=== PATIENT | male | born 1995 | race Caucasian/White ===

== ENCOUNTER → 2018-06-05 12:03 | Outpatient (CLI) | payer OTHER, SELFPAY ==
[2015-05-23 02:54] VITALS: BMI 25.9
[2018-06-05 13:54] LABS: Absolute Lymphocyte Count 1.88 X10^3/ul (0.83-4.51); Absolute Neutrophil Count 4.6 X10^3/uL (2.0-7.7); Basophil# 0.03 X10^3/uL; Basophil% 0.4 % (0-1); Eosinophil# 0.12 X10^3/uL; Eosinophils% 1.7 % (0-5); Hematocrit 44.7 % (40-54); Hemoglobin 14.6 g/dl (13.0-16.5); Lymphocyte # 1.88 X10^3/ul (4.0); Lymphocyte % 25.9 % (19-41); Mean Corp Hgb Conc 32.7 g/gl (32-36); Mean Corpuscular Hgb 27.8 pg (27.0-32.0); Mean Corpuscular Volume 85.1 fL (80-94); Mean Platelet Vol. 9.9 fl (6.2-12.0); Monocyte# 0.63 X10^3/uL; Monocyte% 8.7 % (0-10); Neutrophil # 4.59 X10^3/uL (2.7-7.7); Neutrophil % 63.3 % (47-70); Platelet Count 255 K/mm3 (150-450); RBC Distribution Width CV 13.9 % (11.6-14.6); RBC Distribution Width SD 43.2 fl (35.1-43.9); Red Blood Count 5.25 M/mm3 (4.6-6.2); White Blood Count 7.3 K/mm3 (4.4-11.0)
[2018-06-05 14:05] LABS: POSITIVE COUNT NO; POSITIVE DIFFERENTIAL NO; POSITIVE MORPHOLOGY NO
[2018-06-05 14:15] LABS: ALB/GLOB Ratio 1.2 RATIO (0.9-2.4); AST(SGOT) 13 U/L (15-37); Alanine Aminotransfer ALT/SGPT 20 U/L (16-61); Alkaline Phosphatase 89 U/L (45-117); Anion Gap 4 (5-15); BUN 18 mg/dL (7-18); BUN/Creat Ratio 18.5 RATIO (10-20); Calcium,Total 8.5 mg/dL (8.5-10.1); Chloride 112 mmol/L (98-107); Creatinine, Serum 0.97 mg/dL (0.70-1.30); EST Glomerular Filtration Rate 102 mL/min (>60); Est Glom Filt Rate - Afr Amer 123 mL/min (>60); Globulin 3.2 g/dL (2.2-4.2); Glucose 76 mg/dL (74-106); Potassium 4.1 mmol/L (3.5-5.1); Protein, Total 7.2 g/dL (6.4-8.2); Sodium Level 138 mmol/L (136-145)
[2018-06-06 14:42] LABS: ANTINUCLEAR ANTIBODIES DIRECT Negative (Negative)
== END ==
PROVIDERS: Family Provider Family Medicine; PCP Family Medicine; Referring Provider Family Medicine; Visit Provider Family Medicine
DX: I73.00 Raynaud's syndrome without gangrene (principal)
CPT/HCPCS: 36415; 80053; 84443; 85025; 86038

== ENCOUNTER 2020-08-23 18:57 | Emergency (ER) | payer OTHER, SELFPAY ==
[2020-08-23 18:57] VITALS: BP 144/83; PULSE 91; RESP 16; TEMP 36.4; O2SAT 99; BMI 26.7
--- NOTE | 2020-08-23 19:14 | CT_ITS ---
STUDY: CT ABDOMEN AND PELVIS WITHOUT CONTRAST REASON FOR EXAM: Male, 25 years old. Right flank pain RADIATION DOSAGE (If Supplied By Facility): CTDIvol = ( 13.41 ) mGy, DLP = ( 656.55 ) mGycm TECHNIQUE: Transaxial images were obtained from the dome of the diaphragm to the symphysis pubis without oral contrast, and without intravenous contrast. Sagittal and coronal images were reconstructed. Individualized dose optimization techniques were used for this CT. COMPARISON: None. FINDINGS: The visualized lung bases are unremarkable. The visualized portions of the heart are within normal limits. Normal liver. Normal gallbladder and extrahepatic biliary system. Normal spleen. Normal pancreas. Normal bilateral adrenal glands. Normal right kidney. There are two 2 mm stones within the proximal right ureter. 13 mm probable cyst in the left kidney. Normal visualized stomach. Normal small intestine. Normal colon. The appendix is visualized and appears normal. Normal abdominal aorta. Normal inferior vena cava. Normal retroperitoneum. Normal urinary bladder. Normal abdominal wall. Vertebral rods are noted in place.. CT/Abdomen/Pelvis without Cont IMPRESSION: Right proximal ureteral calculi. Left renal cyst. Electronically Signed: Victor Hugo Sarmiento DO at 20:36 EDT Tel [phone], Service support ,
--- NOTE | 2020-08-23 19:15 | EDS_ITS ---
HPI History of Present Illness Chief Complaint: Flank Pain Narrative Narrative: 25-year-old male presenting with right flank pain. He states that he noted this earlier in the day and had some hematuria as well. He had mild nausea. Pain is been persistent throughout the day. He denies fever or chills. Patient states he has no significant medical history other than a previous back surgery and seasonal allergies. PFSH PFSH Home Medications desvenlafaxine succinate [Pristiq] 50 mg PO DAILY 01/06/14 [History Last Taken 01/05/14] loratadine [Claritin] 10 mg PO DAILY 01/06/14 [History Last Taken 01/05/14] montelukast 10 mg PO DAILY 01/06/14 [History Last Taken Unknown] topiramate 400 mg PO DAILY 01/06/14 [History Last Taken 01/05/14] hydrocodone-acetaminophen 1 tab PO Q6H PRN PRN 3 Days #12 tablet 08/23/20 [Rx Last Taken Unknown] meloxicam [Mobic] 15 mg PO DAILY 08/23/20 [History Last Taken Unknown] ondansetron HCl [Zofran] 4 mg PO Q8H PRN #14 tab 08/23/20 [Rx Last Taken Unknown] Allergy/AdvReac Type Severity Reaction Status Date / Time amoxicillin trihydrate Allergy Rash Verified 08/23/20 19:12 [From Augmentin] potassium clavulanate Allergy Rash Verified 08/23/20 19:12 [From Augmentin] Surgical History History of back surgery Social History Smoking Status: Never smoker ROS ROS ED Constitutional Constitutional ED: Denies chills, fever(s) or subjective Eyes Eyes: Denies blurry vision or change in vision ENT ENT ED: Denies rhinorrhea or sore throat Cardiovascular Cardiovascular: Denies chest pain, palpitations or racing heartbeat Respiratory/Chest Respiratory/Chest: Denies cough, dyspnea or sputum Gastrointestinal Gastrointestinal: Reports nausea; Denies abdominal pain, constipation, diarrhea or vomiting Genitourinary Genitourinary ED: Reports dysuria and hematuria Musculoskeletal Musculoskeletal: Reports other Details: Right flank pain Neurologic Neurologic: Denies headache(s) or weakness Psychiatric Psychiatric: Denies anxiety or depression Endocrine Endocrinology: Denies polydipsia or polyuria EXAM Physical Exam Const Vital Signs: 08/23/20 18:57 Temperature 97.6 F L Temperature Source Temporal Pulse Rate 91 Respiratory Rate 16 Blood Pressure 144/83 H Blood Pressure Mean 103 Pulse Ox 99 Oxygen Delivery Method Room Air Positive well nourished General Appearance ED: NAD HEENT normocephalic and atraumatic Eyes PERRL and EOMs intact bilaterally Resp normal respiratory effort, no retractions and no use of accessory muscles Cardio regular rate and regular rhythm GI non-distended Palpation: soft Bladder / Kidney Exam: CVA tenderness right Extremity normal to inspection General Extremety ED: Negative for edema General Extremity: Negative for edema Neuro oriented x3 Sensorium / Orientation: alert Psych mental status grossly normal Skin Lesions: no lesions Rashes: no rashes MDM MDM MDM Narrative Medical decision making narrative: Patient presenting with flank pain which started today. He does have hematuria as well. Lab work shows a slight leukocytosis however patient's urinalysis is negative for UTI. Patient given Toradol and Zofran in the ED. Creatinine is 1.39 which is elevated over previous and patient is counseled on this. Patient CT of the abdomen pelvis without IV contrast shows 2 proximal ureteral stones approximately 2 mm which are likely to pass. Patient will be given follow-up with Dr. Espinosa. He is given [place] and Zofran for home. Is given return precautions. Patient stable for discharge at this time. Impression: 1. Two 2 mm right proximal ureteral calculi 2. Hematuria 3. Acute kidney injury Lab Data Labs: Laboratory Results - last 24 hr 08/23/20 08/23/20 08/23/20 19:10 19:10 19:10 WBC 13.5 H RBC 5.03 Hgb 14.3 Hct 43.8 MCV 87.1 MCH 28.4 MCHC 32.6 RDW Std Deviation 43.8 RDW Coeff of Ehsan 13.9 Plt Count 307 MPV 10.4 Immature Gran % (Auto) 0.400 Neut % (Auto) 80.8 H Lymph % (Auto) 11.6 L [place] % (Auto) 6.4 Eos % (Auto) 0.4 Baso % (Auto) 0.4 Absolute Neuts (auto) 10.9 H Absolute Lymphs (auto) 1.57 Nucleated RBC % 0 Sodium 141 Potassium 4.3 Chloride 110 H Carbon Dioxide 23.0 Anion Gap 8 BUN 19 H Creatinine 1.39 H Estim Creat Clear Calc 97.10 Est GFR (MDRD) Af Amer 80 Est GFR (MDRD) Non-Af 66 BUN/Creatinine Ratio 13.7 Glucose 98 Calcium 9.0 Urine Color Yellow Urine Clarity Cloudy Urine pH 7.0 Ur Specific [place] 1.005 Urine Protein 30 H Urine Glucose (UA) Normal Urine Ketones Negative Urine Occult Blood 250 H Urine Nitrite Negative Urine Bilirubin Negative Urine Urobilinogen 1 H Ur Leukocyte Esterase 25 H Urine RBC > 100 SEEN Urine WBC 0 SEEN Ur Squamous Epith Cells 0 SEEN Calcium Oxalate Crystal 1+ Urine Bacteria 0 SEEN Urine Mucus 0 SEEN Radiography Diagnostic Testing: Radiology Impression Abdomen/Pelvis CT 08/23/20 19:14 IMPRESSION: Right proximal ureteral calculi. Left renal cyst. Electronically Signed: Victor Hugo Sarmiento DO at 20:36 EDT Tel [phone], Service support , Discharge Plan Triage Chief Complaint: Flank Pain ED Provider: Jesse Zabala Dx/Rx/DC Orders Instructions: ED Kidney Stone w/ Colic Prescriptions: New hydrocodone-acetaminophen 5-325 mg tablet 1 tab PO Q6H PRN PRN (Reason: Pain) 3 Days Qty: 12 RF: 0 ondansetron HCl [Zofran] 4 mg tablet 4 mg PO Q8H PRN (Reason: nausea and vomiting) Qty: 14 RF: 0 No Action desvenlafaxine succinate [Pristiq] 50 MG tablet 50 mg PO DAILY RF: 0 topiramate 200 MG tablet 400 mg PO DAILY RF: 0 montelukast 10 MG tablet 10 mg PO DAILY RF: 0 loratadine [Claritin] 10 mg tablet 10 mg PO DAILY RF: 0 meloxicam [Mobic] 15 mg Tablet 15 mg PO DAILY RF: 0 Primary Care Provider: Osvaldo Leija Referrals: Osvaldo Leija MD [Primary Care Provider] - Giuliano Espinosa MD [STAFF PHYSICIAN] - Activity Restrictions/Additional Instructions: Your kidney function has slightly worsened from previous lab work. It is possible this could be due to the kidney stone. I recommend you follow-up with urology and your primary care physician. He will need repeat kidney function testing. Your creatinine today is 1.39. GFR is 66. Disposition Disposition: Home, Self Care Discharge Date/Time: 08/23/20 21:08
[2020-08-23 19:46] LABS: Bacteria 0 SEEN /hpf (None Seen); Mucous, Urine 0 SEEN /hpf (<or=2+); Squamous Epithelial Cells - UA 0 SEEN /hpf (0-5); White Blood Cells 0 SEEN /hpf (0-5)
[2020-08-23 19:58] LABS: Color, Urine Yellow (Yellow); Glucose, Dipstick Normal (Normal); Ketone-Dipstick Negative (Negative); Leukocyte Esterase-Dipstick 25 /ul (Negative); Nitrite-Dipstick Negative (Negative); Occult Blood-Urine 250 /ul (Negative); Protein-Dipstick 30 mg/dl (Negative); Specific Gravity, Urine 1.005 (1.002-1.030); Urine Bilirubin Dipstick Negative (Negative); Urine Clarity Cloudy (Clear); Urine Urobilinogen 1 mg/dl (Normal)
[2020-08-23 20:02] LABS: Anion Gap 8 (5-15); BUN 19 mg/dL (7-18); BUN/Creat Ratio 13.7 RATIO (10-20); Chloride 110 mmol/L (98-107); Creatinine, Serum 1.39 mg/dL (0.70-1.30); EST Glomerular Filtration Rate 66 mL/min (>60); Est Glom Filt Rate - Afr Amer 80 mL/min (>60); Glucose 98 mg/dL (74-106); Potassium 4.3 mmol/L (3.5-5.1); Sodium Level 141 mmol/L (136-145)
[2020-08-23] MEDS: Ketorolac 15 MG/ML Vial IV (20:03)
[2020-08-23] MEDS: Ondansetron 4 MG/2 ML Vial IV (20:03)
[2020-08-23 20:08] LABS: Absolute Lymphocyte Count 1.57 X10^3/uL (0.83-4.51); Absolute Neutrophil Count 10.9 X10^3/uL (2.0-7.7); Basophil# 0.06 X10^3/uL; Basophil% 0.4 % (0-1); Eosinophil# 0.05 X10^3/uL; Eosinophils% 0.4 % (0-5); Hematocrit 43.8 % (40-54); Hemoglobin 14.3 g/dL (13.0-16.5); Lymphocyte # 1.57 X10^3/ul (0.83-4.51); Lymphocyte % 11.6 % (19-41); Mean Corp Hgb Conc 32.6 g/dL (32-36); Mean Corpuscular Hgb 28.4 pg (27.0-32.0); Mean Corpuscular Volume 87.1 fL (80-94); Mean Platelet Vol. 10.4 fl (6.2-12.0); Monocyte# 0.86 X10^3/uL; Monocyte% 6.4 % (0-10); NRBC Flagged by Analyzer 0 % (0-5); Neutrophil # 10.94 X10^3/uL (2.7-7.7); Neutrophil % 80.8 % (47-70); Platelet Count 307 K/mm3 (150-450); RBC Distribution Width CV 13.9 % (11.6-14.6); RBC Distribution Width SD 43.8 fl (35.1-43.9); Red Blood Count 5.03 M/mm3 (4.6-6.2); White Blood Count 13.5 K/mm3 (4.4-11.0)
[2020-08-23 20:11] LABS: Red Blood Cells-Urine > 100 SEEN /hpf (0-5)
[2020-08-23 20:12] LABS: Calcium Oxalate Crystals Ur 1+ /hpf (<or=2+)
[2020-08-23] MEDS: oxyCODONE 5 MG Tablet PO (21:08)
== END 2020-08-23 21:08 | disposition home or self-care (01) ==
PROVIDERS: Emergency Provider Student in an Organized Health Care Education/Training Program; PCP Family Medicine
DX: N20.1 Calculus of ureter (principal); N17.9 Acute kidney failure, unspecified; Z79.1 Long term (current) use of non-steroidal anti-inflammatories (NSAID); Z79.899 Other long term (current) drug therapy
CPT/HCPCS: 74176; 80048; 81001; 85025; 96374; 96375; 99282; J7030; A4216; J2405

== ENCOUNTER → 2020-09-22 13:40 | Outpatient (CLI) | payer OTHER, SELFPAY ==
[2020-08-23 18:57] VITALS: BMI 26.7
[2020-09-22 17:00] LABS: Creatinine, Serum 0.85 mg/dL (0.70-1.30); EST Glomerular Filtration Rate 116 mL/min (>60); Est Glom Filt Rate - Afr Amer 140 mL/min (>60)
== END ==
PROVIDERS: PCP Family Medicine; Referring Provider Nurse Practitioner Adult Health; Visit Provider Nurse Practitioner Adult Health
DX: R93.41 Abnormal radiologic findings on diagnostic imaging of renal pelvis, ureter, or bladder (principal)
CPT/HCPCS: 36415; 82565

== ENCOUNTER → 2021-07-07 | Outpatient (CLI) | payer BC, SELFPAY ==
[2021-07-07 12:25] LABS: Absolute Lymphocyte Count 1.87 X10^3/uL (0.83-4.51); Absolute Neutrophil Count 8.2 X10^3/uL (2.0-7.7); Basophil# 0.08 X10^3/uL; Basophil% 0.7 % (0-1); Eosinophil# 0.14 X10^3/uL; Eosinophils% 1.3 % (0-5); Hematocrit 46.9 % (40-54); Hemoglobin 15.4 g/dL (13.0-16.5); Lymphocyte # 1.87 X10^3/ul (0.83-4.51); Mean Corp Hgb Conc 32.8 g/dL (32-36); Mean Corpuscular Hgb 28.7 pg (27.0-32.0); Mean Corpuscular Volume 87.5 fL (80-94); Mean Platelet Vol. 9.7 fl (6.2-12.0); Monocyte# 0.72 X10^3/uL; Monocyte% 6.5 % (0-10); NRBC Flagged by Analyzer 0 % (0-5); Neutrophil # 8.18 X10^3/uL (2.7-7.7); Neutrophil % 74.1 % (47-70); Platelet Count 312 K/mm3 (150-450); RBC Distribution Width CV 13.3 % (11.6-14.6); RBC Distribution Width SD 42.9 fl (35.1-43.9); Red Blood Count 5.36 M/mm3 (4.6-6.2)
[2021-07-07 13:12] LABS: AST(SGOT) 13 U/L (15-37); Alanine Aminotransfer ALT/SGPT 26 U/L (16-61); Albumin, Serum 4.3 g/dL (3.2-5.0); Alkaline Phosphatase 72 U/L (45-117); Bilirubin, Direct 0.11 mg/dL (0.00-0.30); Globulin 3.1 g/dL (2.2-4.2); Protein, Total 7.4 g/dL (6.4-8.2)
== END | disposition home or self-care (01) ==
LOC: MFPLAB 11:27
PROVIDERS: PCP Family Medicine; Referring Provider Family Medicine; Visit Provider Family Medicine
DX: R10.13 Epigastric pain (principal)
CPT/HCPCS: 36415; 80076; 85025

== ENCOUNTER → 2021-09-21 | Outpatient (CLI) | payer BC, SELFPAY ==
[2021-09-21 15:19] LABS: Absolute Lymphocyte Count 1.84 X10^3/uL (0.83-4.51); Absolute Neutrophil Count 6.1 X10^3/uL (2.0-7.7); Basophil# 0.04 X10^3/uL; Basophil% 0.5 % (0-1); Eosinophil# 0.18 X10^3/uL; Hematocrit 46.3 % (40-54); Hemoglobin 15.6 g/dL (13.0-16.5); Lymphocyte # 1.84 X10^3/ul (0.83-4.51); Lymphocyte % 20.8 % (19-41); Mean Corp Hgb Conc 33.7 g/dL (32-36); Mean Corpuscular Hgb 28.7 pg (27.0-32.0); Mean Corpuscular Volume 85.3 fL (80-94); Mean Platelet Vol. 10.2 fl (6.2-12.0); Monocyte# 0.67 X10^3/uL; Monocyte% 7.6 % (0-10); NRBC Flagged by Analyzer 0 % (0-5); Neutrophil # 6.09 X10^3/uL (2.7-7.7); Neutrophil % 68.9 % (47-70); Platelet Count 297 K/mm3 (150-450); RBC Distribution Width CV 13.7 % (11.6-14.6); RBC Distribution Width SD 42.5 fl (35.1-43.9); Red Blood Count 5.43 M/mm3 (4.6-6.2); White Blood Count 8.8 K/mm3 (4.4-11.0)
[2021-09-21 15:42] LABS: ALB/GLOB Ratio 1.2 RATIO (0.9-2.4); AST(SGOT) 12 U/L (15-37); Alanine Aminotransfer ALT/SGPT 22 U/L (16-61); Albumin, Serum 4.1 g/dL (3.2-5.0); Alkaline Phosphatase 71 U/L (45-117); Anion Gap 4 (5-15); BUN 17 mg/dL (7-18); BUN/Creat Ratio 17.6 RATIO (10-20); CRP < 2.90 mg/L (0.0-3.0); Calcium,Total 8.8 mg/dL (8.5-10.1); Chloride 110 mmol/L (98-107); Creatinine, Serum 0.96 mg/dL (0.70-1.30); EST Glomerular Filtration Rate 100 mL/min (>60); Est Glom Filt Rate - Afr Amer 121 mL/min (>60); Globulin 3.5 g/dL (2.2-4.2); Glucose 88 mg/dL (74-106); Potassium 3.7 mmol/L (3.5-5.1); Protein, Total 7.6 g/dL (6.4-8.2); Sodium Level 139 mmol/L (136-145)
[2021-09-23 15:08] LABS: Endomysial Antibody IgA Negative (Negative)
[2021-09-23 16:47] LABS: Deamidated Gliadin IgA 4 units (0-19); Deamidated Gliadin IgG 2 units (0-19); Immunoglobulin A 183 mg/dL (90-386); t-Transglutaminase IgA <2 U/mL (0-3)
[2021-09-27 04:06] LABS: Beef <0.10 kU/L (Class 0); Corn <0.10 kU/L (Class 0); Egg, Whole <0.10 kU/L (Class 0); Milk (Cow) <0.10 kU/L (Class 0); Peanut <0.10 kU/L (Class 0); Pork <0.10 kU/L (Class 0); Soybean <0.10 kU/L (Class 0); Wheat <0.10 kU/L (Class 0)
[2021-09-27 17:03] LABS: Chocolate <0.10 kU/L (Class 0)
== END | disposition home or self-care (01) ==
PROVIDERS: PCP Family Medicine; Referring Provider Family Medicine; Visit Provider Family Medicine
DX: R10.13 Epigastric pain (principal)
CPT/HCPCS: 36415; 80053; 82784; 83516; 85025; 86003; 86005; 86140; 86255

== ENCOUNTER → 2021-09-22 | Outpatient (CLI) | payer BC, SELFPAY ==
[2021-09-28 09:33] LABS: H. PYLORI STOOL AG Negative (Negative)
== END | disposition home or self-care (01) ==
LOC: MFPLAB 13:54 → LABSPEC 13:55
PROVIDERS: PCP Family Medicine; Referring Provider Family Medicine; Visit Provider Family Medicine
DX: R10.13 Epigastric pain (principal); E55.9 Vitamin D deficiency, unspecified
CPT/HCPCS: 87338

== ENCOUNTER → 2021-09-30 | Outpatient (CLI) | payer BC, SELFPAY ==
--- NOTE | 2021-09-30 11:18 | CT_ITS ---
STUDY: CT ABDOMEN AND PELVIS WITH CONTRAST REASON FOR EXAM: Male, 26 years old. ABDOMINAL PAIN- LUQ X 2 MONTHS. DELAY THROUGH SPLEEN RADIATION DOSAGE (If Supplied By Facility): CTDIvol = ( 14.54 ) mGy, DLP = ( 1167.50 ) mGycm TECHNIQUE: Transaxial images were obtained from the dome of the diaphragm to the symphysis pubis with oral contrast. Oral and amp; IV Gastrografin and amp; 100mL Isovue-300 was administered. Sagittal and coronal images were reconstructed. Individualized dose optimization techniques were used for this CT. COMPARISON: Comparison is made with prior study dated 08/23/2020. FINDINGS: The visualized lung bases are unremarkable. The visualized portions of the heart are within normal limits. Normal liver. Normal gallbladder and extrahepatic biliary system. Normal spleen. Normal pancreas. Normal bilateral adrenal glands. Normal right kidney. 2.2 cm cyst in the anterior upper pole of the left kidney. Large amount of residual food particles seen within the stomach. Normal small intestine. Large amount of fecal material is seen in the rectosigmoid colon. The appendix is visualized and appears normal. Normal abdominal aorta. Normal inferior vena cava. Normal retroperitoneum. Normal urinary bladder. Normal abdominal wall. The patient is status post interpedicular screw fixation of the lower thoracic and lumbar vertebra. CT/Abdomen/Pelvis WITH Contrast IMPRESSION: Stable 2.2 cm cyst in the left kidney. Moderate amount of fecal material is seen in the rectosigmoid colon. Electronically Signed: Stephen Olmedo MD at 14:30 EDT ,
== END | disposition home or self-care (01) ==
PROVIDERS: PCP Family Medicine; Referring Provider Family Medicine; Visit Provider Family Medicine
DX: R10.9 Unspecified abdominal pain (principal)
CPT/HCPCS: 74177; Q9967

== ENCOUNTER → 2022-11-08 | Outpatient (CLI) | payer OTHER, SELFPAY ==
[2022-11-08 12:31] LABS: Cholesterol 163 mg/dL (200); High Density Lipoprotein 41 mg/dL; Triglycerides 80 mg/dL; Very Low Density Lipoprotein 16 mg/dL (5-40)
[2022-11-08 12:41] LABS: Hemoglobin A1c 4.8 % (3.8-5.6)
== END | disposition home or self-care (01) ==
LOC: MFPLAB 10:40
PROVIDERS: PCP Family Medicine; Visit Provider Nurse Practitioner Family
DX: Z13.1 Encounter for screening for diabetes mellitus (principal); Z13.220 Encounter for screening for lipoid disorders
CPT/HCPCS: 36415; 80061; 83036

== ENCOUNTER → 2023-07-04 | Outpatient (CLI) | payer OTHER, SELFPAY ==
[2023-07-04 11:58] LABS: Absolute Lymphocyte Count 2.29 X10^3/uL (0.83-4.51); Absolute Neutrophil Count 5.5 X10^3/uL (2.0-7.7); Basophil% 1.1 % (0-1); Eosinophils% 5.4 % (0-5); Hematocrit 47.5 % (40-54); Hemoglobin 15.1 g/dL (13.0-16.5); Lymphocyte # 2.29 X10^3/ul (0.83-4.51); Lymphocyte % 24.9 % (19-41); Mean Corp Hgb Conc 31.8 g/dL (32-36); Mean Corpuscular Hgb 27.2 pg (27.0-32.0); Mean Corpuscular Volume 85.6 fL (80-94); Mean Platelet Vol. 9.1 fl (6.2-12.0); Monocyte# 0.77 X10^3/uL; Monocyte% 8.4 % (0-10); NRBC Flagged by Analyzer 0 % (0-5); Neutrophil # 5.48 X10^3/uL (2.7-7.7); Neutrophil % 59.8 % (47-70); Platelet Count 367 K/mm3 (150-450); RBC Distribution Width CV 12.8 % (11.6-14.6); RBC Distribution Width SD 39.8 fl (35.1-43.9); Red Blood Count 5.55 M/mm3 (4.6-6.2); White Blood Count 9.2 K/mm3 (4.4-11.0)
[2023-07-04 12:20] LABS: AST(SGOT) 17 U/L (15-37); Alanine Aminotransfer ALT/SGPT 26 U/L (16-61); Albumin, Serum 3.8 g/dL (3.2-5.0); Alkaline Phosphatase 90 U/L (45-117); Anion Gap 7 (5-15); BUN 11 mg/dL (7-18); BUN/Creat Ratio 9.3 RATIO (10-20); Calcium,Total 9.2 mg/dL (8.5-10.1); Chloride 107 mmol/L (98-107); Creatinine, Serum 1.18 mg/dL (0.70-1.30); EST Glomerular Filtration Rate 78 mL/min (>60); Est Glom Filt Rate - Afr Amer 94 mL/min (>60); Globulin 3.9 g/dL (2.2-4.2); Glucose 90 mg/dL (74-106); Lipase 23 U/L (13-75); Magnesium 2.2 mg/dL (1.6-2.6); Potassium 4.2 mmol/L (3.5-5.1); Protein, Total 7.7 g/dL (6.4-8.2); Sodium Level 138 mmol/L (136-145)
== END | disposition home or self-care (01) ==
LOC: LAB 11:35
PROVIDERS: PCP Family Medicine; Referring Provider Family Medicine; Visit Provider Family Medicine
DX: R11.10 Vomiting, unspecified (principal); R10.9 Unspecified abdominal pain
CPT/HCPCS: 80053; 82140; 83605; 83690; 83735; 85025

== ENCOUNTER → 2023-07-13 | Outpatient (CLI) | payer OTHER, SELFPAY ==
--- NOTE | 2023-07-13 08:40 | RAD_ITS ---
STUDY: X-RAY - ESOPHAGUS (BARIUM SWALLOW) WITH FLUOROSCOPY REASON FOR EXAM: Male, 28 years old. Dysphagia and vomiting TECHNIQUE: 11 view(s) of the esophagus were obtained following swallowing of barium. FLUOROSCOPY TIME (if supplied): (33 seconds) minutes/seconds. 15.25 mGy. COMPARISON: None. FINDINGS: There is no demonstrated esophageal foreign body. There is no demonstrated stricture or mucosal abnormality. Normal gastroesophageal junction, without a demonstrated hiatal hernia. There is evidence of gastroesophageal reflux. The patient ingested a 12 mm tablet of barium without any difficulty. Normal visualized aortic arch and descending thoracic aorta. Normal visualized pulmonary parenchyma. The patient is status post [place] rods fixation device. RAD/Esophagus Single Contrast IMPRESSION: Gastroesophageal reflux. Electronically Signed: Stephen Olmedo MD at 9:47 EDT ,
== END | disposition home or self-care (01) ==
LOC: RAD 08:38
PROVIDERS: PCP Family Medicine; Referring Provider Family Medicine; Visit Provider Family Medicine
DX: R13.10 Dysphagia, unspecified (principal)
CPT/HCPCS: 74220

== ENCOUNTER → 2023-11-22 | Outpatient (CLI) | payer OTHER, SELFPAY ==
[2023-11-22 15:57] LABS: Anion Gap 6 (5-15); BUN 14 mg/dL (7-18); Chloride 109 mmol/L (98-107); Cholesterol 162 mg/dL (200); Creatinine, Serum 0.93 mg/dL (0.70-1.30); EST Glomerular Filtration Rate 102 mL/min (>60); Est Glom Filt Rate - Afr Amer 124 mL/min (>60); Glucose 89 mg/dL (74-106); High Density Lipoprotein 49 mg/dL; Potassium 3.9 mmol/L (3.5-5.1); Sodium Level 138 mmol/L (136-145); Triglycerides 79 mg/dL; Very Low Density Lipoprotein 16 mg/dL (5-40)
== END | disposition home or self-care (01) ==
LOC: MFPLAB 11:09
PROVIDERS: PCP Family Medicine; Visit Provider Nurse Practitioner Family
DX: Z13.220 Encounter for screening for lipoid disorders (principal); Z13.1 Encounter for screening for diabetes mellitus
CPT/HCPCS: 36415; 80048; 80061

== ENCOUNTER → 2024-04-08 | Outpatient (CLI) | payer OTHER, SELFPAY | END | disposition home or self-care (01) | LOC: LABSPEC 12:33 | PROVIDERS: PCP Family Medicine; Visit Provider Nurse Practitioner Family | DX: R82.90 Unspecified abnormal findings in urine (principal) | CPT/HCPCS: 87086; 87088 ==

== ENCOUNTER → 2024-11-14 | Outpatient (CLI) | payer OTHER, SELFPAY ==
[2024-11-14 12:33] LABS: Hematocrit 44.1 % (40-54); Hemoglobin 14.6 g/dL (13.0-16.5); Immature Granulocytes Count 0.030 X10^3/uL (0.0-0.0); Mean Corp Hgb Conc 33.1 g/dL (32-36); Mean Corpuscular Volume 82.6 fL (80-94); Mean Platelet Vol. 10.1 fl (6.2-12.0); NRBC Flagged by Analyzer 0 % (0-5); Platelet Count 326 K/mm3 (150-450); RBC Distribution Width CV 13.3 % (11.6-14.6); RBC Distribution Width SD 39.8 fl (35.1-43.9); Red Blood Count 5.34 M/mm3 (4.6-6.2); White Blood Count 10.1 K/mm3 (4.4-11.0)
[2024-11-14 12:54] LABS: AST(SGOT) 21 U/L (<=37); Alanine Aminotransfer ALT/SGPT 24 U/L (<=46); Albumin, Serum 4.5 g/dL (3.5-5.0); Alkaline Phosphatase 77 U/L (40-129); Anion Gap 13 (5-15); BUN 12 mg/dL (4-19); BUN/Creat Ratio 14.9 RATIO (10-20); Calcium,Total 9.1 mg/dL (7.6-11.0); Carbon Dioxide 20.3 mmol/L (21.0-32.0); Chloride 104 mmol/L (98-108); Cholesterol 171 mg/dL (<=200); Globulin 3.0 g/dL (2.2-4.2); Glucose 93 mg/dL (70-99); Low Density Lipoprotein Calc. 103 mg/dL; Potassium 4.4 mmol/L (3.3-5.1); Triglycerides 123 mg/dL; Very Low Density Lipoprotein 25 mg/dL (5-40); Vitamin D,25 Hydroxy 22.4 ng/mL (30-100); cholesterol:hdl ratio screen 3.90
== END | disposition home or self-care (01) ==
LOC: MTLAB 09:21
PROVIDERS: PCP Family Medicine; Referring Provider Family Medicine; Visit Provider Family Medicine
DX: K21.9 Gastro-esophageal reflux disease without esophagitis (principal); Z13.220 Encounter for screening for lipoid disorders; E66.811 Obesity, class 1; E55.9 Vitamin D deficiency, unspecified
CPT/HCPCS: 36415; 80053; 80061; 82306; 85025

== ENCOUNTER → 2025-01-14 | Outpatient (CLI) | payer OTHER, SELFPAY ==
[2025-01-14 17:42] LABS: Hematocrit 47.2 % (40-54); Hemoglobin 15.0 g/dL (13.0-16.5); Immature Granulocytes Count 0.170 X10^3/uL (0.0-0.0); Mean Corp Hgb Conc 31.8 g/dL (32-36); Mean Corpuscular Volume 84.4 fL (80-94); Mean Platelet Vol. 10.8 fl (6.2-12.0); NRBC Flagged by Analyzer 0 % (0-5); POSITIVE COUNT YES; RBC Distribution Width CV 13.6 % (11.6-14.6); RBC Distribution Width SD 41.9 fl (35.1-43.9); Red Blood Count 5.59 M/mm3 (4.6-6.2); White Blood Count 11.2 K/mm3 (4.4-11.0)
[2025-01-14 18:02] LABS: Differential Indicated SCAN CRITERIA MET
[2025-01-14 18:17] LABS: AST(SGOT) 30 U/L (<=37); Alanine Aminotransfer ALT/SGPT 63 U/L (<=46); Albumin, Serum 4.5 g/dL (3.5-5.0); Alkaline Phosphatase 90 U/L (40-129); Anion Gap 13 (5-15); BUN 13 mg/dL (4-19); BUN/Creat Ratio 15.7 RATIO (10-20); CRP 9.52 mg/L (0.0-3.0); Calcium,Total 9.7 mg/dL (7.6-11.0); Carbon Dioxide 23.0 mmol/L (21.0-32.0); Chloride 103 mmol/L (98-108); Globulin 3.4 g/dL (2.2-4.2); Glucose 85 mg/dL (70-99); Potassium 4.4 mmol/L (3.3-5.1)
[2025-01-15 08:32] LABS: Lipase 20 U/L (13-75)
[2025-01-16 14:08] LABS: ANTINUCLEAR ANTIBODIES DIRECT Negative (Negative)
== END | disposition home or self-care (01) ==
PROVIDERS: PCP Family Medicine; Referring Provider Family Medicine; Visit Provider Family Medicine
DX: K85.90 Acute pancreatitis without necrosis or infection, unspecified (principal)
CPT/HCPCS: 36415; 80053; 83036; 83690; 84443; 85025; 85652; 86038; 86140; 86301; 86304

== ENCOUNTER → 2025-01-16 | Outpatient (CLI) | payer OTHER, SELFPAY ==
--- NOTE | 2025-01-16 10:47 | MRI_ITS ---
PROCEDURE: MRCP ABDOMEN WITHOUT CONTRAST 01/16/2025 REASON FOR EXAM: ACUTE PANCREATITIS WITHOUT NECROSIS OR INFECTION TECHNIQUE: Procedure Code: MRIMRCP Modality: MR Procedure: MRCP ABDOMEN WITHOUT CONTRAST Multiplanar and multisequence images were obtained without the use of contrast. COMPARISON: CT of the abdomen and pelvis dated 09/30/2021 FINDINGS: Liver: Normal in signal and size. Normal morphology. No mass. Patent portal vein. Biliary: Status post cholecystectomy. Normal appearance of the biliary tree with no filling defect or mass. Pancreas: Unremarkable appearance of the pancreas. No ductal dilatation. Fatty infiltration of the pancreatic head, stable. Spleen: Normal in size and signal Adrenals: Normal Kidneys: 2.6 cm cyst arising from the anterior cortex in the upper pole of the left kidney. No hydronephrosis. Small cysts in the posterior cortex of the right kidney is incompletely characterized. No hydronephrosis or solid mass. Peritoneum / Retroperitoneum: No ascites or mass. Lymph Nodes: No retroperitoneal or mesenteric lymphadenopathy Major Vessels: Normal flow voids and normal caliber of the aorta and inferior vena cava. Bones: No fracture. No destructive process. Multilevel spinal fusion. MRI/MRCP Abdomen without Contrast IMPRESSION: Status post cholecystectomy. Normal appearance of the biliary tree and pancreatic duct. Fatty infiltration of the pancreatic head, stable. Stable renal cysts. Reading Location: [id number]
== END | disposition home or self-care (01) ==
PROVIDERS: PCP Family Medicine; Referring Provider Family Medicine; Visit Provider Family Medicine
DX: K85.90 Acute pancreatitis without necrosis or infection, unspecified (principal)
CPT/HCPCS: 74181

== ENCOUNTER → 2025-01-16 | Outpatient (CLI) | payer OTHER, SELFPAY ==
[2025-01-16 11:57] LABS: AST(SGOT) 15 U/L (<=37); Alanine Aminotransfer ALT/SGPT 40 U/L (<=46); Albumin, Serum 4.4 g/dL (3.5-5.0); Alkaline Phosphatase 87 U/L (40-129); Amylase 33 U/L (28-100); Anion Gap 12 (5-15); BUN 13 mg/dL (4-19); BUN/Creat Ratio 15.7 RATIO (10-20); Calcium,Total 9.4 mg/dL (7.6-11.0); Carbon Dioxide 24.1 mmol/L (21.0-32.0); Chloride 103 mmol/L (98-108); Globulin 2.8 g/dL (2.2-4.2); Glucose 92 mg/dL (70-99); Lipase 51 U/L (13-75); Potassium 4.3 mmol/L (3.3-5.1)
--- OUTSIDE RECORDS SUMMARY | 2025-01-16 13:45 | XMS RPT_ITS | CCD ---
Author Organization [employer] [facility] Care Team Providers Care Sheriff'S Officer Name Role Phone HELADIO ETIENNE, TALISHA Hickey Primary Care Physician LOW ETIENNE, NERI Rivas Attending Unavailable HELADIO ETIENNE, TALISHA Hickey Primary Care Unavailable HELADIO ETIENNE, TALISHA A Primary Care Unavailable ERLINDA ETIENNE, DR TUNDE Nugent Attending Yolanda ARAGON MD, TA Leon Attending Unavailable HELADIO ETIENNE, TALISHA A Primary Care Unavailable JILLIAN KARMER MD Attending Unavailable HELADIO ETIENNE, TALISHA Hickey Primary Care Unavailable BUDDY RINCON Attending Unavailable HELADIO ETIENNE, TALISHA A Primary Care Unavailable HELADIO ETIENNE, TALISHA Hickey Attending Unavailable HELADIO ETIENNE, TALISHA A Primary Care Unavailable EMIR ETIENNE, DONNY Attending Unavailable HELADIO ETIENNE, TALISHA Hickey Primary Care Unavailable CORNELL ETIENNE, BERE Consulting Unavailable ZAIDA ETIENNE, PRAVEEN Consulting Unavailable EMIR ETIENNE, DONNY Attending Unavailable HELADIO ETIENNE, TALISHA Hickey Primary Care Unavailable Talisha Leija Referring Unavailable Talisha Leija Attending Unavailable Talisha Leija Primary Care Unavailable Kira AVILA, Jillian Subramanian Attending Unavailable Talisha Leija Primary Care Unavailable Roof MARGARITA, Jillian Subramanian Attending Unavailable Talisha Leija Referring Unavailable Heladio Talisha Primary Care Unavailable Allergies Allergy Classification Reported Allergen(s) Allergy Type Date of Onset Reaction(s) Facility Amoxicillin / Clavulanate (3 sources) Amoxicillin / Clavulanate; Translations: [amoxicillin-cla vulanate] Drug Allergy [facility] DOPamine Antagonists (2 sources) Metoclopramide; Translations: [metoclopramide] Drug Allergy lose control of jaw [facility] (4 sources) Amoxicillin; Translations: [amoxicillin trihydrate] Drug Allergy [facility] (4 sources) potassium clavulanate; Translations: [potassium clavulanate] Allergy to substance Rash [facility] (4 sources) Amoxicillin / Clavulanate; Translations: [amoxicillin-cla vulanate] Drug Allergy [facility] Medications Current Medications Medication Drug Class(es) Dates Sig (Normalized) Sig (Original) acetaminophen 325 mg / HYDROcodone bitartrate 5 mg oral tablet (4 sources) Opioid Agonist Start: 08-11-2023 End: 08-16-2023 take 1 tablet by mouth every four hours as needed for pain [place] 325- 5 mg oral tablet Dose = 1 tab(s), Oral, q4h, PRN as needed for pain, X 5 day(s), # 12 tab(s), 0 Refill(s), Pharmacy: [facility], Acute post-operative pain, 190.5, cm, 08/11/23 11:13:00 EDT, Height, 112.8, kg, 08/11/23 11:13:00 EDT, Dosing Weight Start Date: 08/11/23 Stop Date: 08/16/23 Status: Ordered Start: 08-23-2020 take 1 tablet by radha th every six hours as needed Hydrocodone-Acetaminophen Active 1 TABLE T PO EVERY 6 HOURS NEEDED 12 August 23, 2020 acetaminophen 325 mg / oxyCODONE hydrochloride 5 mg oral tablet (1 source) Opioid Agonist Start: 05-15-2023 End: 05-18-2023 take 1 tablet by mouth every six hours as needed for pain Percocet 5 mg-325 mg oral tablet Dose = 1 tab(s), Oral, q6h, PRN for pain, X 3 day(s), # 12 tab(s), 0 Refill(s), Kidney stone, 115.2 Start Date: 05/15/23 Stop Date: 05/18/23 Status: Ordered Albuterol (Eqv-ProAir HFA) 90 mcg/inh inhalation aerosol (2 sources) Start: 08-02-2023 take 1 dose by inhalation every six hours as needed for wheezing Albuterol (Eqv-ProAir HFA) 90 mcg/inh inhalation aerosol Dose = 2 puff(s), Inhalation, q6hr, PRN as needed for wheezing, 0 Refill(s) Start Date: 08/02/23 Status: Ordered amitriptyline hydrochloride 25 mg oral tablet (4 sources) Tricyclic Antidepressant Start: 08-02-2023 amitriptyline 25 mg oral tablet Dose : 25 mg = 1 tab(s), Oral, qHS Start Date: 08/02/23 Status: Ordered Start: 03-21-2022 amitriptyline 10 mg oral tablet Dose : 20 mg = 2 tab(s), Oral, qHS Start Date: 03/21/22 Status: Ordered 24 hr desvenlafaxine succinate 25 mg extended release oral tablet (5 sources) Serotonin and Norepinephrine Reuptake Inhibitor Start: 08-02-2023 desvenlafaxine (as succinate) 25 mg oral tablet, extended release Dose : 25 mg = 1 tab(s), Oral, qHS, # 30 tab(s), 0 Refill(s) Start Date: 08/02/23 Status: Ordered Start: 01-06-2014 take 1 tablet by ardha once daily Desvenlafaxine Succinate (Pristiq) 50 MG tablet Active 50 MG PO DAILY January 06, 2014 1:00am ergocalciferol 1.25 mg oral capsule (2 sources) Provitamin D2 Compound Start: 08-02-2023 ergocalciferol 50,000 intl units (1.25 mg) oral capsule Dose : 50,000 International_Unit = 1 cap(s), Oral, qHS, 0 Refill(s) Start Date: 08/02/23 Status: Ordered lactulose 667 mg/ml oral solution (2 sources) Osmotic Laxative Start: 08-02-2023 take 1 dose by mouth once daily at bedtime Constulose 10 g/15 mL oral liquid Dose : 20 gram(s) = 30 mL, Oral, qHS, 0 Refill(s) Start Date: 08/02/23 Status: Ordered loratadine 10 mg oral tablet (3 sources) Start: 01-06-2014 take 1 tablet by mouth once daily Loratadine (Claritin) 10 mg tablet Active 10 MG PO DAILY January 06, 2014 1:00am meloxicam 15 mg oral tablet (3 sources) Nonsteroidal Anti-inflammatory Drug Start: 08-23-2020 take 1 tablet by mouth once daily Meloxicam (Mobic) 15 mg Tablet Active 15 MG PO DAILY August 23, 2020 12:00am metoclopramide 10 mg oral tablet (2 sources) Dopamine-2 Receptor Antagonist Start: 07-07-2023 End: 07-12-2023 Reglan 10 mg oral tablet Dose : 10 mg = 1 tab(s), Oral, QID, X 5 day(s), # 20 tab(s), 0 Refill(s), 07/12/23 6:40:00 PM EDT Start Date: 07/07/23 Stop Date: 07/12/23 Status: Ordered montelukast 10 mg oral tablet (5 sources) Leukotriene Receptor Antagonist Start: 08-02-2023 montelukast 10 mg oral tablet Dose : 10 mg = 1 tab(s), Oral, qHS, # 30 tab(s), 0 Refill(s) Start Date: 08/02/23 Status: Ordered Start: 01-06-2014 take 10 mg by mouth once daily Montelukast Active 10 MG PO DAILY January 06, 2014 1:00am mupirocin 0.02 mg/mg topical ointment (2 sources) RNA Synthetase Inhibitor Antibacterial Start: 08-02-2023 mupirocin 2% topical ointment Apply 1 carlita, Topical, BID, Bilateral intranasal application twice daily for 5 days prior to surgery &/or as many days leading up to surgery as possible due to surgical urgency/scheduling. Send to patient's preferred pharmacy., Apply to: nostril, each, # 22 gram(s), 0 Refill(s), Pharmacy: [facility] #[id number], Ointment, 182.9, cm, 08/02/23 9:21:00 EDT, Height, 114.8, kg, 08/02/23 9:21:00 EDT, Dosing Weight Start Date: 08/02/23 Status: Ordered ondansetron 4 mg disintegrating oral tablet (4 sources) Serotonin-3 Receptor Antagonist Start: 05-15-2023 End: 05-18-2023 ondansetron 4 mg oral tablet, disintegrating Dose : 4 mg = 1 tab(s), Oral, q6h, PRN Nausea/Vomiting, X 3 day(s), # 20 tab(s), 0 Refill(s), 05/18/23 10:36:00 PM EDT Start Date: 05/15/23 Stop Date: 05/18/23 Status: Ordered Start: 08-23-2020 take 1 tablet by radha th every eight hours Ondansetron Hcl (Zofran) 4 mg tablet Active 4 MG PO Q8H August 23, 2020 12:00am pantoprazole 40 mg delayed release oral tablet (4 sources) Proton Pump Inhibitor Start: 03-21-2022 pantopra zole 40 mg oral enteric coated tablet Dose : 80 mg = 2 tab(s), Oral, qHS Start Date: 03/21/22 Status: Ordered promethazine hydrochloride 12.5 mg oral tablet (2 sources) Phenothiazine Start: 08-02-2023 promethazine 1 2.5 mg oral tablet Dose : 12.5 mg = 1 tab(s), Oral, q4h, PRN as needed for nausea/vomiting, # 60 tab(s), 0 Refill(s) Start Date: 08/02/23 Status: Ordered topiramate 50 mg oral tablet (5 sources) Start: 08-02-2023 topiramate 50 mg oral tablet Dose : 50 mg = 1 tab(s), Oral, qHS, 0 Refill(s) Start Date: 08/02/23 Status: Ordered Start: 01-06-2014 take 400 mg by mouth once jr y Topiramate Active 400 MG PO DAILY January 06, 2014 1:00am Completed/Discontinued Medications Medication Drug Class(es) Dates Sig (Normalized) Sig (Original) diazePAM 5 mg oral tablet (3 sources) Benzodiazepine Start: 05-23-2015 End: 08-23-2020 take 5 mg by mouth once daily Diazepam Discontinued 5 MG PO DAILY May 23, 2015 12:00am August 23, 2020 7:13pm docusate sodium 100 mg oral capsule (3 sources) Start: 05-23-2015 End: 08-23-2020 take 1 capsule by mouth once daily Docusate Sodium (Colace) 100 MG capsule Discontinued 100 MG PO DAILY May 23, 2015 12:00am August 23, 2020 7:13pm ferrous sulfate 325 mg oral tablet (3 sources) Start: 05-23-2015 End: 08-23-2020 take 1 tablet by mouth once daily Ferrous Sulfate (Iron Supplement) 325 MG tablet Discontinued 325 MG PO DAILY May 23, 2015 12:00am August 23, 2020 7:13pm oxyCODONE hydrochloride 5 mg oral tablet (3 sources) Opioid Agonist Start: 05-23-2015 End: 08-23-2020 take 5 mg by mouth every four hours as needed Oxycodone Discontinued 5 MG PO EVERY 4 HOURS NEEDED May 23, 2015 12:00am August 23, 2020 7:13pm tamsulosin hydrochloride 0.4 mg oral capsule (5 sources) alpha-Adrenergic Froylan Start: 05-15-2023 End: 05-18-2023 Flomax 0.4 mg oral capsule Dose : 0.4 mg = 1 cap(s), Oral, qDay, # 3 cap(s), 0 Refill(s) Start Date: 05/15/23 Stop Date: 05/18/23 Status: Ordered Start: 12-25-2021 End: 01-01-2022 Flomax 0.4 mg oral capsule D ose : 0.4 mg = 1 cap(s), Oral, qDay, # 7 cap(s), 0 Refill(s), Kidney stone Start Date: 12/25/21 Stop Date: 01/01/22 Status: Ordered zolpidem tartrate 10 mg oral tablet (2 sources) gamma-Aminobutyric Acid-ergic Agonist Start: 08-02-2023 zolpidem 10 mg oral tablet Dose : 10 mg = 1 tab(s), Oral, qHS, 0 Refill(s), 113.6 Start Date: 08/02/23 Status: Ordered Problems Active Problems Problem Classification Problem Date Documented Date Episodic/Chronic Abdominal pain (3 sources) Abdominal pain; Translations: [Unspecified abdominal pain] Onset: 05-15-2023 Episodic Calculus of urinary tract (4 sources) Renal colic; Translations: [Unspecified renal colic] Onset: 05-15-2023 08-23-2020 Episodic Esophageal disorders (3 sources) Gastroesophageal reflux disease; Translations: [Gastro-esophageal reflux disease without esophagitis] Onset: 12-06-2024 07-25-2023 Chronic Other nervous system disorders (1 source) Postoperative pain ; Translations: [Other acute postprocedural pain] Onset: 08-11-2023 Episodic Past or Other Problems Problem Classification Problem Date Documented Da te Episodic/Chronic Genitourinary symptoms and ill-defined conditions (3 sources) Unspecified abnormal findings in urine; Translations: [Dysuria] Onset: 04-07-2024 Episodic Results Test Name Value Interpretation Reference Range Facility CBC W/Diff, Automatedon 10-0 Absolute Lymph 1.76 X10 3/uL Normal 0.83-4.51 [facility] Comment on above: Order Comment: Order Date: 05/21/24 Order Info: [id number] - CBCD Performed By: #### L 500.4100, L500.4050, L100.0100 #### [facility] [address] [place], [address] Absolute Neut 7.4 X10 3/uL Normal 2.0-7.7 [facility] Comment on above: Order Comment: Order Date: 05/21/24 Order Info: [id number] - CBCD Performed By: #### L 500.4100, L500.4050, L100.0100 #### [facility] [address] [place], [address] Basophils/100 WBC (Bld) 0.8 % Normal 0-1 [facility] Comment on above: Order Comment: Order Date: 05/21/24 Order Info: [id number]- - CBCD Performed By: #### L 500.4100, L500.4050, L100.0100 #### [facility] [address] [place], [address] Eosinophils/100 WBC (Bld) 1.2 % Normal 0-5 [facility] Comment on above: Order Comment: Order Date: 05/21/24 Order Info: [id number] - CBCD Performed By: #### L 500.4100, L500.4050, L100.0100 #### [facility] [address] [place], [address] Erythrocyte distribution width (RBC) [Ratio] 13.3 % Normal 11.6-14.6 [facility] Comment on above: Order Comment: Order Date: 05/21/24 Order Info: [id number] - CBCD Performed By: #### L 500.4100, L500.4050, L100.0100 #### [facility] [address] [place], [address] Hematocrit (Bld) [Volume fraction] 44.1 % Normal 40-54 [facility] Comment on above: Order Comment: Order Date: 05/21/24 Order Info: [id number] - CBCD Performed By: #### L 500.4100, L500.4050, L100.0100 #### [facility] [address] [place], [address] Hemoglobin (Bld) [Mass/Vol] 14.6 g/dL Normal 13.0-16.5 [facility] Comment on above: Order Comment: Order Date: 05/21/24 Order Info: [id number]- - CBCD Performed By: #### L 500.4100, L500.4050, L100.0100 #### [facility] [address] [place], [address] IG% 0.300 Normal 0.0-0.9 [facility] Comment on above: Order Comment: Order Date: 05/21/24 Order Info: [id number] - CBCD Result Comment: IG% - Immature Granulocytes (promyelocytes, myelocytes and metamyelocytes) > 1% indicates that a LEFT SHIFT is Present. Performed By: #### L 500.4100, L500.4050, L100.0100 #### [facility] [address] [place], [address] Lymphocytes/100 WBC (Bld) 17.4 % Low 19-41 [facility] Comment on above: Order Comment: Order Date: 05/21/24 Order Info: [id number] - CBCD Performed By: #### L 500.4100, L500.4050, L100.0100 #### [facility] [address] [place], [address] MCH (RBC) [Entitic mass] 27.3 pg Normal 27.0-32.0 [facility] Comment on above: Order Comment: Order Date: 05/21/24 Order Info: [id number] - CBCD Performed By: #### L 500.4100, L500.4050, L100.0100 #### [facility] [address] [place], [address] MCHC (RBC) [Mass/Vol] 33.1 g/dL Normal 32-36 [facility] Comment on above: Order Comment: Order Date: 05/21/24 Order Info: [id number]- - CBCD Performed By: #### L 500.4100, L500.4050, L100.0100 #### [facility] [address] [place], [address] MCV (RBC) [Entitic vol] 82.6 fL Normal 80-94 [facility] Comment on above: Order Comment: Order Date: 05/21/24 Order Info: [id number]- - CBCD Performed By: #### L 500.4100, L500.4050, L100.0100 #### [facility] [address] [place], [address] Monocytes/100 WBC (Bld) 7.1 % Normal 0-10 [facility] Comment on above: Order Comment: Order Date: 05/21/24 Order Info: [id number] - CBCD Performed By: #### L 500.4100, L500.4050, L100.0100 #### [facility] [address] [place], [address] Neutrophils/100 WBC (Bld) 73.2 % High 47-70 [facility] Comment on above: Order Comment: Order Date: 05/21/24 Order Info: [id number] - CBCD Performed By: #### L 500.4100, L500.4050, L100.0100 #### [facility] [address] [place], [address] Nucleated RBC (Bld) [#/Vol] 0 10*3/uL Normal 0-5 [facility] Comment on above: Order Comment: Order Date: 05/21/24 Order Info: [id number] - CBCD Performed By: #### L 500.4100, L500.4050, L100.0100 #### [facility] [address] [place], [address] Platelet mean volume (Bld) [Entitic vol] 10.1 fL Normal 6.2-12.0 [facility] Comment on above: Order Comment: Order Date: 05/21/24 Order Info: [id number] - CBCD Performed By: #### L 500.4100, L500.4050, L100.0100 #### [facility] [address] [place], [address] Platelets (Bld) [#/Vol] 326 10*3/uL Normal 150-450 [facility] Comment on above: Order Comment: Order Date: 05/21/24 Order Info: [id number] - CBCD Performed By: #### L 500.4100, L500.4050, L100.0100 #### [facility] [address] [place], [address] RBC (Bld) [#/Vol] 5.34 10*6/uL Normal 4.6-6.2 [facility] Comment on above: Order Comment: Order Date: 05/21/24 Order Info: [id number] - CBCD Performed By: #### L 500.4100, L500.4050, L100.0100 #### [facility] [address] [place], [address] RDW SD 39.8 fl Normal 35.1-43.9 [facility] Comment on above: Order Comment: Order Date: 05/21/24 Order Info: [id number] - CBCD Performed By: #### L 500.4100, L500.4050, L100.0100 #### [facility] [address] [place], [address] WBC (Bld) [#/Vol] 10.1 10*3/uL Normal 4.4-11.0 [facility] Comment on above: Order Comment: Order Date: 05/21/24 Order Info: [id number] - CBCD Performed By: #### L 500.4100, L500.4050, L100.0100 #### [facility] [address] [place], [address] Comprehensive Metabolic Prof ilon 11-14-2024 Albumin [Mass/Vol] 4.5 g/dL Normal 3.5-5.0 [facility] Comment on above: Order Comment: Order Date: 05/21/24 Order Info: [id number] - CMP Order Info: [id number] - LIPID Performed By: #### L 500.4100, L500.4050, L100.0100 #### [facility] [address] [place], [address] Albumin/Globulin [Mass ratio] 1.5 {ratio} Normal 0.9-2.4 [facility] Comment on above: Order Comment: Order Date: 05/21/24 Order Info: [id number] - CMP Order Info: [id number] - LIPID Performed By: #### L 500.4100, L500.4050, L100.0100 #### [facility] [address] [place], [address] ALK PHOS 77 U/L Normal 40-129 [facility] Comment on above: Order Comment: Order Date: 05/21/24 Order Info: [id number] - CMP Order Info: [id number] - LIPID Performed By: #### L 500.4100, L500.4050, L100.0100 #### [facility] [address] [place], [address] ALT [Catalytic activity/Vol] 24 U/L Normal <=46 [facility] Comment on above: Order Comment: Order Date: 05/21/24 Order Info: [id number] - CMP Order Info: [id number] - LIPID Performed By: #### L 500.4100, L500.4050, L100.0100 #### [facility] [address] [place], [address] AST [Catalytic activity/Vol] 21 U/L Normal <=37 [facility] Comment on above: Order Comment: Order Date: 05/21/24 Order Info: [id number] - CMP Order Info: [id number] - LIPID Performed By: #### L 500.4100, L500.4050, L100.0100 #### [facility] [address] [place], [address] Bilirubin [Mass/Vol] 0.35 mg/dL Normal 0.00-1.30 [facility] Comment on above: Order Comment: Order Date: 05/21/24 Order Info: [id number] - CMP Order Info: [id number] - LIPID Performed By: #### L 500.4100, L500.4050, L100.0100 #### [facility] [address] [place], [address] BUN/CRE 14.9 RATIO Normal 10-20 [facility] Comment on above: Order Comment: Order Date: 05/21/24 Order Info: [id number] - CMP Order Info: [id number] - LIPID Performed By: #### L 500.4100, L500.4050, L100.0100 #### [facility] [address] [place], [address] Calcium [Mass/Vol] 9.1 mg/dL Normal 7.6-11.0 [facility] Comment on above: Order Comment: Order Date: 05/21/24 Order Info: [id number] - CMP Order Info: [id number] - LIPID Performed By: #### L 500.4100, L500.4050, L100.0100 #### [facility] [address] [place], [address] Chloride [Moles/Vol] 104 mmol/L Normal 98-108 [facility] Comment on above: Order Comment: Order Date: 05/21/24 Order Info: [id number] - CMP Order Info: [id number] - LIPID Performed By: #### L 500.4100, L500.4050, L100.0100 #### [facility] [address] [place], [address] CO2 [Moles/Vol] 20.3 mmol/L Low 21.0-32.0 [facility] Comment on above: Order Comment: Order Date: 05/21/24 Order Info: [id number]- - CMP Order Info: [id number] - LIPID Performed By: #### L 500.4100, L500.4050, L100.0100 #### [facility] [address] [place], [address] Creatinine [Mass/Vol] 0.83 mg/dL Normal 0.70-1.20 [facility] Comment on above: Order Comment: Order Date: 05/21/24 Order Info: [id number] - CMP Order Info: [id number] - LIPID Performed By: #### L 500.4100, L500.4050, L100.0100 #### [facility] [address] [place], [address] GAP 13 Normal 5-15 [facility] Comment on above: Order Comment: Order Date: 05/21/24 Order Info: [id number] - CMP Order Info: [id number] - LIPID Performed By: #### L 500.4100, L500.4050, L100.0100 #### [facility] [address] [place], [address] GFR/1.73 sq M.predicted among non-blacks MDRD (S/P/Bld) [Vol rate/Area] 122 mL/min/{1.73_m2} Normal >60 [facility] Comment on above: Order Comment: Order Date: 05/21/24 Order Info: [id number] - CMP Order Info: [id number] - LIPID Result Comment: mL/m in/1.73m2 CKD-EPI Creatinine Equation (2020) Performed By: #### L 500.4100, L500.4050, L100.0100 #### [facility] [address] [place], [address] Globulin (S) [Mass/Vol] 3.0 g/dL Normal 2.2-4.2 [facility] Comment on above: Order Comment: Order Date: 05/21/24 Order Info: [id number]- - CMP Order Info: [id number] - LIPID Performed By: #### L 500.4100, L500.4050, L100.0100 #### [facility] [address] [place], [address] Glucose [Mass/Vol] 93 mg/dL Normal 70-99 [facility] Comment on above: Order Comment: Order Date: 05/21/24 Order Info: [id number] - CMP Order Info: [id number] - LIPID Performed By: #### L 500.4100, L500.4050, L100.0100 #### [facility] [address] [place], [address] Potassium [Moles/Vol] 4.4 mmol/L Normal 3.3-5.1 [facility] Comment on above: Order Comment: Order Date: 05/21/24 Order Info: [id number] - CMP Order Info: [id number] - LIPID Performed By: #### L 500.4100, L500.4050, L100.0100 #### [facility] [address] [place], [address] Sodium [Moles/Vol] 138 mmol/L Normal 133-145 [facility] Comment on above: Order Comment: Order Date: 05/21/24 Order Info: [id number] - CMP Order Info: [id number] - LIPID Performed By: #### L 500.4100, L500.4050, L100.0100 #### [facility] [address] [place], [address] T PROT 7.4 g/dL Normal 5.9-8.4 [facility] Comment on above: Order Comment: Order Date: 05/21/24 Order Info: [id number] - CMP Order Info: [id number] - LIPID Performed By: #### L 500.4100, L500.4050, L100.0100 #### [facility] [address] [place], [address] Urea nitrogen [Mass/Vol] 12 mg/dL Normal 4-19 [facility] Comment on above: Order Comment: Order Date: 05/21/24 Order Info: [id number]- - CMP Order Info: [id number] - LIPID Performed By: #### L 500.4100, L500.4050, L100.0100 #### [facility] [address] [place], [address] Lipid Profileon 11-14-2024 CHOL:HDL 3.90 Normal [facility] Comment on above: Order Comment: Order Date: 05/21/24 Order Info: [id number] - CMP Order Info: [id number] - LIPID Performed By: #### L 500.4100, L500.4050, L100.0100 #### [facility] [address] [place], [address] Cholesterol [Mass/Vol] 171 mg/dL Normal <=200 [facility] Comment on above: Order Comment: Order Date: 05/21/24 Order Info: [id number] - CMP Order Info: [id number] - LIPID Result Comment: Chol esterol level, Desirable <200 mg/dL Borderline high cholesterol 200-239 mg/dL High cholesterol >=240 mg/dL Recommendations of the NCEP Adult Treatment Panel for the following risk-cutoff thresholds for the [place] population. Performed By: #### L 500.4100, L500.4050, L100.0100 #### [facility] [address] [place], [address] Cholesterol in HDL [Mass/Vol] 44 mg/dL Normal [facility] Comment on above: Order Comment: Order Date: 05/21/24 Order Info: [id number] - CMP Order Info: [id number] - LIPID Result Comment: [place] onal Cholesterol Education Program (NCEP) guidelines: <40 mg/dL: Low HDL-cholesterol (major risk factor for CHD) >= 60 mg/dL: High HDL-cholesterol (negative risk factor for CHD) HDL-cholesterol is affected by a number of factors, e.g. smoking, exercise, hormones, sex and age. Performed By: #### L 500.4100, L500.4050, L100.0100 #### [facility] [address] [place], [address] Cholesterol in LDL [Mass/Vol] 103 mg/dL Normal [facility] Comment on above: Order Comment: Order Date: 05/21/24 Order Info: [id number] - CMP Order Info: [id number] - LIPID Result Comment: Bord emzmjo=722-642 mg/dL Higher Iung=289 mg/dL or greater Friedwald Equation for LDL-C Performed By: #### L 500.4100, L500.4050, L100.0100 #### [facility] [address] [place], [address] Cholesterol in VLDL [Mass/Vol] 25 mg/dL Normal 5-40 [facility] Comment on above: Order Comment: Order Date: 05/21/24 Order Info: [id number] - CMP Order Info: [id number] - LIPID Performed By: #### L 500.4100, L500.4050, L100.0100 #### [facility] [address] [place], [address] Triglyceride [Mass/Vol] 123 mg/dL Normal [facility] Comment on above: Order Comment: Order Date: 05/21/24 Order Info: [id number] - CMP Order Info: [id number] - LIPID Result Comment: The drugs N-Acetylcysteine and Metamizole may falsely depress this assay. Normal range: <150 mg/dL Borderline High: 150-199 mg/dL High: 200-499 mg/dL Very High: >500 mg/dL Performed By: #### L 500.4100, L500.4050, L100.0100 #### [facility] [address] [place], [place], [address] Vitamin D,25 Hydroxyon 11-14 Vitamin D 25-OH 22.4 ng/mL Low 30-100 [facility] Comment on above: Order Comment: Order Date: 05/21/24 Order Info: [id number] - CMP Order Info: [id number] - LIPID Result Comment: Chelsy min D Status Deficiency: <20 ng/mL (50nmol/L) Insufficiency: 20-30 ng/mL (50-75 nmol/L) Sufficiency: 30-100 ng/mL (75-250 nmol/L) Toxicity: >100 ng/mL (>250 nmol/L) Performed By: #### L 506.1001 #### [facility] [address] [place], [place], [address] Urine Cultureon 04-10-2024 URC Below infection leve l. Mixed Gram Positive Organisms [place] Count <1000 MIXC Mixed contaminants. Submit a new specimen if indicated. Normal [facility] Comment on above: Performed By: #### M 100.2200 #### [facility] [address] [place], [place], [address] Urgent Care Visit Reporton 0 04-07-2024 Urgent Care Visit Report [facility] [address], [address] [place], [place] [address] OFFICE VISIT Date of Service: 04/07/24 MR#: [id number] Acct: [id number] Name: GUY MYERS Rep #: [id number] : 1995 Provider: WOO barbour Age/Sex: 28/M [place] [facility] Status: Signed Intake Vital Signs 08/23/20 18:57 04/07/24 08:02 04/07/24 08:23 Height 6 ft 3 in 6 ft 3 in 6 ft 3 in Weight: 273 lb 2 oz BMI 34.1 BP 130/62 H Blood Pressure Location Rt brachial Position Sitting Respiration 16 Pulse 93 Pulse Source NIBP Temp 98.1 F Temp Source Oral Pulse Oximetry (%) 99 Oxygen Delivery Method room air Intake Visit Reasons: CONCERN FOR UTI Chief Complaint: decreased output 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 increase in Topamax approx 1 month ago, PCP unsure if related to dosage change. significant hx renal calculi. denies fever, blood PFSH Medical History (Updated 04/07/24 @ 09:13 by Jillian Malone CONDITIONING COACH, CONDITIONING COACH-C) Environmental allergies Back pain Renal calculus Surgical History (Updated 04/07/24 @ 08:37 by Lucy Whittington) History of spinal fusion History of cholecystectomy History of back surgery Social History Smoking Status: Never smoker HPI HPI Chief Complaint: decreased output Details: GUY MYERS, is a 28 M who presents to the office today for concerns regarding decreased urinary output and right kidney irritation . This is been ongoing for the last week and he feels to be worsening. He states that he started Topamax 1 month ago with primary care provider. He does acknowledge a significant history of renal calculi. He denies fever or blood in urine. He denies fever, backaches, and chills. He noted darker urine yesterday, but cleared up. ROS Const Constitutional: No body ache, chills, fatigue, fever(s), headache(s) or change in appetite Eyes Eyes: No blurry vision, change in vision, double vision, irritation, discharge, vision loss, dry eyes, bulging eyes, floaters, visual disturbances, eye pain, Light sensitivity, spots in vision, tunnel vision or other ENT ENT: No ear or mastoid pain, ear discharge, ear pressure, tinnitus, dizziness/vertigo, nosebleed/epistaxis, nasal congestion, nose pain, sinus pressure, sinus pain, nasal discharge, post nasal drip, headache(s), facial pain, dental pain, difficulty swallowing, bad breath, hoarseness, lip swelling, mouth lesions, mouth pain, neck pain, sore throat, tongue swelling or throat swelling Resp Respiratory: No cough, change in phlegm color, chest congestion, hemoptysis, pain on inspiration, shortness of breath, pain with cough, stridor or wheezing Cardio Cardiology: No chest pain at rest, chest pain with exertion, shortness of breath, dyspnea on exertion or lightheadedness Gastro GI: No abdominal pain, change in bowel habits or difficulty swallowing Genitourinary Male: No burning urination or urinary frequency Musc Musculoskeletal: No joint pain or neck pain Skin Skin: No rash Neuro Neurology: No headache(s) or visual disturbances Psych Psychiatric: No change in appetite Endo Endocrine: No fatigue Aller/Imm Allergy/Immunologic: No lip swelling, throat swelling, tongue swelling or wheezing Exam Const General: cooperative, healthy appearing, comfortable and no acute distress Orientation: alert, awake and oriented x3 HENMT Head: normal to inspection and normocephalic Ears: hearing grossly normal bilaterally, external ears normal and TM's normal bilaterally Nose: external nose normal, nares normal and no nasal discharge Face and sinus: normal facial exam and sinuses nontender Mouth: oral mucosae normal, lip normal, tongue normal, oropharynx normal and moist mucous membranes Throat: posterior oropharynx normal, tonsils normal, uvula midline and no postnasal drainage Eyes General: appearance normal, both eyes and all related structures Neck Neck: normal visual inspection and no lymphadenopathy Carotids: normal carotid upstroke Lymphatic: no lymphadenopathy noted Chest Chest palpation inspection: normal inspection of the chest Resp Effort Inspection: normal respiratory effort, able to speak in complete sentences, symmetric chest movement, no cough and no stridor Auscultation: Bilateral: Clear to Auscultation Cardio Rate: regular rate Rhythm: regular rhythm Heart Sounds: S1 normal, S2 normal and no murmurs GI Inspection: normal to inspection Auscultat (more content not included)... Normal [facility] Final Surgical Pathology Rep [facility] 08-15-2023 Final Surgical Pathology Report . Pathology Reports Accession: Collected Date/Time: Received Date/Time: Pathologist: [id number] 08/11/2023 13:57 EDT 08/14/2023 07:33 EDT MD CHRISTOPHER VEGA Final Surgical Pathology Report DIAGNOSIS: GALLBLADDER, CHOLECYSTECTOMY: - MILD CHRONIC CHOLECYSTITIS CLINICAL INFORMATION: Procedure: ROBOTIC ASSISTED CHOLECYSTECTOMY Preoperative diagnosis: BILIARY DYSKINESIA Postoperative diagnosis: BILIARY DYSKINESIA SPECIMEN: A GALLBLADDER GROSS DESCRIPTION: All parts labelled with patient name and [id number] Received in formalin labelled gallbladder Dimensions - 6.0 x 2.1 x 1.2 cm Cystic duct/pericystic duct lymph node - no lymph node identified Serosal surface - is previously opened. Smooth and espinal-green with a roughened hepatic bed Luminal contents - contains yellow-green bile. No stones identified Mucosal surface - is velvety green with 1 possible polypoid area measuring 0.1 cm. Custodian Supervisor sections submitted Wall thickness - 0.1 cm RS-1 Merly Wilkes, Grossing Motor Vehicle Emissions Inspector/ Dr. Cole Zambrano, Pathologist Performed by Merly Wilkes MICROSCOPIC DESCRIPTION: The microscopic examination is performed, except in the case of Gross Only. Electronically Signed by Pathology Report verified by [facility] CHRISTOPHER VEGA MD Sign out Date: 08/15/2023 08:12 Performing Lab: [facility], [address] [place] [address] [facility] Pathology Dept Disclaimer If ancillary studies were utilized, the following Laboratory Developed Test (LDT) disclaimer will apply: Under CLIA requirements, [facility] is qualified to perform high complexity testing. For all ancillary stains, positive and negative controls stain appropriately. Performance characteristics of immunohistochemical and chromogenic in-situ hybridization tests have been determined by [facility]. These tests are used for clinical purposes, They should not be regarded as investigational or for research. Normal [facility] ([place]) .Auto Diffon 08-02-2023 Basophil, Absolute 0.0 10 3/mcL Normal 0.0-0.3 [facility] ([place]) Comment on above: Performed By: #### C BC, ANEU, CMP, GFR, ADIFF #### [address] [address] Basophils/100 WBC (Bld) 0.5 % Normal 0.0-2.5 [facility] ([place]) Comment on above: Performed By: #### C BC, ANEU, CMP, GFR, ADIFF #### [address] [address] Eosinophil, Absolute 0.2 10 3/mcL Normal 0.0-0.7 [facility] ([place]) Comment on above: Performed By: #### C BC, ANEU, CMP, GFR, ADIFF #### [address] [address] Eosinophils/100 WBC (Bld) 2.7 % Normal 0.0-6.0 [facility] ([place]) Comment on above: Performed By: #### C BC, ANEU, CMP, GFR, ADIFF #### [address] [address] Lymphocyte, Absolute 2.0 10 3/mcL Normal 0.9-4.3 [facility] ([place]) Comment on above: Performed By: #### C BC, ANEU, CMP, GFR, ADIFF #### [address] [address] Lymphocytes/100 WBC (Bld) 24.3 % Normal 20.0-40.0 [facility] ([place]) Comment on above: Performed By: #### C BC, ANEU, CMP, GFR, ADIFF #### [address] [address] Monocyte, Absolute 0.8 10 3/mcL Normal 0.1-1.4 [facility] ([place]) Comment on above: Performed By: #### C BC, ANEU, CMP, GFR, ADIFF #### [address] [address] Monocytes/100 WBC (Bld) 9.8 % Normal 2.0-13.0 [facility] ([place]) Comment on above: Performed By: #### C BC, ANEU, CMP, GFR, ADIFF #### [address] [address] Neutrophils/100 WBC (Bld) 62.7 % Normal 50.0-75.0 [facility] ([place] Comment on above: Performed By: #### C BC, ANEU, CMP, GFR, ADIFF #### [address] [address] .GFRon 08-02-2023 GFR Non- >60 Normal [facility] ([place]) Comment on above: Result Comment: GFR Population mean for , Non- Americans Ages 20-29 = 116 mL/min/1.73 sq.m. Ages 30-39 = 107 mL/min/1.73 sq.m. Ages 40-49 = 99 mL/min/1.73 sq.m. Ages 50-59 = 93 mL/min/1.73 sq.m. Ages 60-69 = 85 mL/min/1.73 sq.m. Ages 70+ = 75 mL/min/1.73 sq.m. Chronic Kidney Disease: Less than 60 mL/min/1.73 square meters End Stage Renal Disease: Less than 15 mL/min/1.73 square meters Performed By: #### C BC, ANEU, CMP, GFR, ADIFF #### [address] [address] GFR >60 Normal [facility] ([place]) Comment on above: Result Comment: GFR Population mean for , Non- Americans Ages 20-29 = 116 mL/min/1.73 sq.m. Ages 30-39 = 107 mL/min/1.73 sq.m. Ages 40-49 = 99 mL/min/1.73 sq.m. Ages 50-59 = 93 mL/min/1.73 sq.m. Ages 60-69 = 85 mL/min/1.73 sq.m. Ages 70+ = 75 mL/min/1.73 sq.m. Chronic Kidney Disease: Less than 60 mL/min/1.73 square meters End Stage Renal Disease: Less than 15 mL/min/1.73 square meters Performed By: #### C BC, ANEU, CMP, GFR, ADIFF #### [address] [address] .NEUABSon 08-02-2023 Neutrophil, Absolute 5.2 10 3/mcL Normal 2.3-8.1 [facility] ([place]) Comment on above: Performed By: #### C BC, ANEU, CMP, GFR, ADIFF #### [place] [id number] CBCon 08-02-2023 Erythrocyte distribution width (RBC) [Ratio] 13.2 % Normal 11.5-15.5 [facility] ([place] Comment on above: Performed By: #### C BC, ANEU, CMP, GFR, ADIFF #### [place] [address] Hematocrit (Bld) [Volume fraction] 43.2 % Normal 40.0-52.0 [facility] ([place] Comment on above: Performed By: #### C BC, ANEU, CMP, GFR, ADIFF #### [place] [address] Hgb 14.9 G/dL Normal 13.0-17.5 [facility] ([place] Comment on above: Performed By: #### C BC, ANEU, CMP, GFR, ADIFF #### [place] [address] MCH (RBC) [Entitic mass] 28.8 pg Normal 27.0-33.0 [facility] ([place] Comment on above: Performed By: #### C BC, ANEU, CMP, GFR, ADIFF #### [place] [address] MCHC 34.4 G/dL Normal 32.0-36.0 [facility] ([place] Comment on above: Performed By: #### C BC, ANEU, CMP, GFR, ADIFF #### [place] [address] MCV (RBC) [Entitic vol] 83.7 fL Normal 81.0-100.0 [facility] ([place] Comment on above: Performed By: #### C BC, ANEU, CMP, GFR, ADIFF #### [place] [address] Platelet 235 10 3/mcL Normal 150-450 [facility] ([place] Comment on above: Performed By: #### C BC, ANEU, CMP, GFR, ADIFF #### [place] [address] Platelet mean volume (Bld) [Entitic vol] 7.9 fL Normal 6.4-10.5 [facility] ([place] Comment on above: Performed By: #### C BC, ANEU, CMP, GFR, ADIFF #### [place] [address] RBC 5.16 10 6/mcL Normal 4.50-6.00 [facility] ([place] Comment on above: Performed By: #### C BC, ANEU, CMP, GFR, ADIFF #### [place] [id number] WBC 8.2 10 3/mcL Normal 4.5-10.8 [facility] ([place] Comment on above: Performed By: #### C BC, ANEU, CMP, GFR, ADIFF #### [place] [address] CMPon 08-02-2023 Albumin Level 3.9 G/dL Normal 3.2-4.8 [facility] ([place] Comment on above: Performed By: #### C BC, ANEU, CMP, GFR, ADIFF #### [place] [address] Albumin/Globulin [Mass ratio] 1.3 {ratio} Normal 0.9-1.6 [facility] ([place] Comment on above: Performed By: #### C BC, ANEU, CMP, GFR, ADIFF #### [place] [address] ALP [Catalytic activity/Vol] 72 U/L Normal 38-126 [facility] ([place] Comment on above: Performed By: #### C BC, ANEU, CMP, GFR, ADIFF #### [place] [id number] ALT [Catalytic activity/Vol] 15 U/L Normal 12-55 [facility] ([place] Comment on above: Performed By: #### C BC, ANEU, CMP, GFR, ADIFF #### [facility] [address] [place], [place] [address] AST [Catalytic activity/Vol] 14 U/L Normal 8-34 [facility] ([place] Comment on above: Performed By: #### C BC, ANEU, CMP, GFR, ADIFF #### [address] [address] Bili Total 0.40 mg/dL Normal 0.20-1.20 [facility] ([place] Comment on above: Result Comment: Use of this assay is not recommended for patients undergoing treatment with eltrombopag due to the potential for falsely elevated results. Performed By: #### C BC, ANEU, CMP, GFR, ADIFF #### [place] [id number] BUN/Creatinine Ratio 16.0 ratio Normal 10.0-22.0 [facility] ([place] Comment on above: Performed By: #### C BC, ANEU, CMP, GFR, ADIFF #### [place] [id number] Calcium [Mass/Vol] 9.2 mg/dL Normal 8.7-10.4 [facility] ([place] Comment on above: Performed By: #### C BC, ANEU, CMP, GFR, ADIFF #### [place] [id number] Chloride [Moles/Vol] 113 mmol/L High 98-110 [facility] ([place] Comment on above: Performed By: #### C BC, ANEU, CMP, GFR, ADIFF #### [place] [id number] CO2 [Moles/Vol] 22 mmol/L Normal 22-32 [facility] ([place] Comment on above: Performed By: #### C BC, ANEU, CMP, GFR, ADIFF #### [place] [id number] Creatinine [Mass/Vol] 0.94 mg/dL Normal 0.60-1.40 [facility] ([place] Comment on above: Performed By: #### C BC, ANEU, CMP, GFR, ADIFF #### [place] [id number] Electrolyte Balance 7.0 mEq/L Normal 4.0-15.0 [facility] ([place]) Comment on above: Performed By: #### C BC, ANEU, CMP, GFR, ADIFF #### [address] [address] Globulin 2.9 G/dL Normal 1.5-3.8 [facility] ([place] Comment on above: Performed By: #### C BC, ANEU, CMP, GFR, ADIFF #### [address] [address] Glucose [Mass/Vol] 90 mg/dL Normal 70-110 [facility] ([place] Comment on above: Performed By: #### C BC, ANEU, CMP, GFR, ADIFF #### [address] [address] Potassium [Moles/Vol] 4.1 mmol/L Normal 3.5-5.0 [facility] ([place] Comment on above: Performed By: #### C BC, ANEU, CMP, GFR, ADIFF #### [place] [phone] Sodium [Moles/Vol] 142 mmol/L Normal 136-145 [facility] ([place] Comment on above: Performed By: #### C BC, ANEU, CMP, GFR, ADIFF #### [address] [address] Total Protein 6.8 G/dL Normal 5.7-8.2 [facility] ([place] Comment on above: Result Comment: No te - New Reference Range in effect 19 Performed By: #### C BC, ANEU, CMP, GFR, ADIFF #### [address] [address] Urea nitrogen [Mass/Vol] 15.0 mg/dL Normal 8.0-22.0 [facility] ([place] Comment on above: Performed By: #### C BC, ANEU, CMP, GFR, ADIFF #### [address] [address] LABORATORYOrdered By: SYSTEM SYSTEM on 08-02-2023 Albumin BCP dye [Mass/Vol] 3.9 G/dL Normal 3.2 - 4.8 G/dL ADM SS Albumin/Globulin [Mass ratio] 1.3 {ratio} Normal 0.9 - 1.6 ratio ADM SS ALP [Catalytic activity/Vol] 72 U/L Normal 38 - 126 U/L ADM SS ALT No additional P-5'-P [Catalytic activity/Vol] 15 U/L Normal 12 - 55 U/L ADM SS AST [Catalytic activity/Vol] 14 U/L Normal 8 - 34 U/L ADM SS Basophils (Bld) [#/Vol] 0.0 103/mcL Normal 0.0 - 0.3 10^3/mcL Workflow SS Basophils/100 WBC (Bld) 0.5 % Normal 0.0 - 2.5 % Workflow SS Bilirubin [Mass/Vol] 0.40 mg/dL Normal 0.20 - 1.20 mg/dL ADM SS Comment on above: Interpretive Data: U se of this assay is not recommended for patients undergoing treatment with eltrombopag due to the potential for falsely elevated results. Calcium [Mass/Vol] 9.2 mg/dL Normal 8.7 - 10. 4 mg/dL ADM SS Chloride [Moles/Vol] 113 mmol/L High 98 - 11 0 mEq/L ADM SS CO2 [Moles/Vol] 22 mmol/L Normal 22 - 32 mEq/L ADM SS Creatinine [Mass/Vol] 0.94 mg/dL Normal 0.60 - 1.40 mg/dL ADM SS Electrolyte Balance 7.0 mEq/L Normal 4.0 - 15 .0 mEq/L ADM SS Eosinophils (Bld) [#/Vol] 0.2 103/mcL Normal 0.0 - 0.7 10^3/mcL Workflow SS Eosinophils/100 WBC (Bld) 2.7 % Normal 0.0 - 6.0 % Workflow SS Erythrocyte distribution width (RBC) [Ratio] 13.2 % Normal 11.5 - 15.5 % Workflow SS GFR/1.73 sq M.predicted among blacks MDRD (S/P/Bld) [Vol rate/Area] ml/min/1.73sqm Invalid Interpretation Code Chemistry S Comment on above: Interpretive Data: GFR Population mean for , Non- Americans Ages 20-29 = 116 mL/min/1.73 sq.m. Ages 30-39 = 107 mL/min/1.73 sq.m. Ages 40-49 = 99 mL/min/1.73 sq.m. Ages 50-59 = 93 mL/min/1.73 sq.m. Ages 60-69 = 85 mL/min/1.73 sq.m. Ages 70+ = 75 mL/min/1.73 sq.m. Chronic Kidney Disease: Less than 60 mL/min/1.73 square meters End Stage Renal Disease: Less than 15 mL/min/1.73 square meters GFR/1.73 sq M.predicted among non-blacks MDRD (S/P/Bld) [Vol rate/Area] ml/min/1.73sqm Invalid Interpretation Code Chemistry S Comment on above: Interpretive Data: GFR Population mean for , Non- Americans Ages 20-29 = 116 mL/min/1.73 sq.m. Ages 30-39 = 107 mL/min/1.73 sq.m. Ages 40-49 = 99 mL/min/1.73 sq.m. Ages 50-59 = 93 mL/min/1.73 sq.m. Ages 60-69 = 85 mL/min/1.73 sq.m. Ages 70+ = 75 mL/min/1.73 sq.m. Chronic Kidney Disease: Less than 60 mL/min/1.73 square meters End Stage Renal Disease: Less than 15 mL/min/1.73 square meters Globulin 2.9 G/dL Normal 1.5 - 3.8 G/dL ADM SS Glucose [Mass/Vol] 90 mg/dL Normal 70 - 110 mg/dL ADM SS Hematocrit (Bld) [Volume fraction] 43.2 % Normal 40.0 - 52.0 % Workflow SS Hemoglobin (Bld) [Mass/Vol] 14.9 G/dL Normal 13.0 - 17.5 G/dL AH Workflow SS Lymphocytes (Bld) [#/Vol] 2.0 103/mcL Normal 0.9 - 4.3 10^3/mcL AH Workflow SS Lymphocytes/100 WBC (Bld) 24.3 % Normal 20.0 - 40.0 % AH Workflow SS MCH (RBC) [Entitic mass] 28.8 pg Normal 27.0 - 33.0 pg AH Workflow SS MCHC 34.4 G/dL Normal 32.0 - 36.0 G/dL AH Workflow SS MCV (RBC) [Entitic vol] 83.7 fL Normal 81.0 - 100.0 fL AH Workflow SS Monocytes (Bld) [#/Vol] 0.8 103/mcL Normal 0.1 - 1.4 10^3/mcL AH Workflow SS Monocytes/100 WBC (Bld) 9.8 % Normal 2.0 - 13.0 % AH Workflow SS Neutrophils (Bld) [#/Vol] 5.2 103/mcL Normal 2.3 - 8.1 10^3/mcL AH Workflow SS Neutrophils/100 WBC (Bld) 62.7 % Normal 50.0 - 75.0 % AH Workflow SS Platelet mean volume (Bld) [Entitic vol] 7.9 fL Normal 6.4 - 10.5 fL AH Workflow SS Platelets (Bld) [#/Vol] 235 103/mcL Normal 150 - 450 10^3/mcL AH Workflow SS Potassium [Moles/Vol] 4.1 mmol/L Normal 3.5 - 5.0 mEq/L ADM SS Protein [Mass/Vol] 6.8 G/dL Normal 5.7 - 8.2 G/dL ADM SS Comment on above: Interpretive Data: * *Note - New Reference Range in effect 19 RBC (Bld) [#/Vol] 5.16 106/mcL Normal 4.50 - 6.0 0 10^6/mcL AH Workflow SS Sodium [Moles/Vol] 142 mmol/L Normal 136 - 145 mEq/L ADM SS Urea nitrogen [Mass/Vol] 15.0 mg/dL Normal 8.0 - 22.0 mg/dL ADM SS Urea nitrogen/Creatinine [Mass ratio] 16.0 ratio Normal 10.0 - 22.0 ratio AH ADM SS WBC (Bld) [#/Vol] 8.2 103/mcL Normal 4.5 - 10.8 10^3/mcL AH Workflow SS NM HEPATOBILIARY DUCT SYSTEM IMAGINGon 07-24-2023 NM HEPATOBILIARY DUCT SYSTEM IMAGING ORIGINAL EXAMINATION: NUCLEAR MEDICINE HEPATOBILIARY SCINTIGRAPHY (HIDA SCAN) WITH EJECTION FRACTION. TECHNIQUE: Approximately 5.0 millicuries Tc99m Mebrofenin (Choletec) was administered IV. Then, dynamic images of the abdomen were obtained in the anterior projection for 60 mins. A right lateral view was also obtained at 60 mins. Slow infusion of 0.02 mcg/kg cholecystokinin was administered intravenously over 30-60 mins. Images were obtained in the ZIMBABWEAN projection and regions of interest were drawn around the gallbladder and ejection fraction was calculated. COMPARISON: Ultrasound the abdomen 09/26/2022. HISTORY: ORDERING SYSTEM PROVIDED HISTORY: Reason for Exam: ABDOMINAL TENDERNESS, VOMITING FINDINGS: Prompt, homogenous uptake by the liver is noted with normal appearance of radiotracer excretion into the biliary system. Clearance of bloodpool activity appears appropriate. Gallbladder and small bowel is visualized in appropriate sequence and time. Gallbladder ejection fraction measured 17%%. Normal value is >38% for CCK protocol and >33% for Ensure protocol. Note, Ensure normal range is based on a limited study. IMPRESSION: 1. No evidence of common bile duct or cystic duct obstruction. 2. Abnormal gallbladder ejection fraction consistent with biliary dyskinesia. Interpreted by: Buddy Mathews Preliminary Report By: Buddy Mathews Electronically signed By Buddy Mathews Dictated Date: 07/24/2023 9:05:51 AM Prelim Date: 07/24/2023 9:07:21 AM Sign Date: 07/24/2023 9:07:21 AM Ordering Provider: TALISHA English [facility] ([place]) .Auto Diffon 07-07-2023 Basophil, Absolute 0.1 10 3/mcL Normal 0.0-0.2 [facility] ([place]) Comment on above: Performed By: #### A LIZ, LIP, CBC, MDW, ADIFF, CMP, GFR #### [address] [address] Basophils/100 WBC (Bld) 0.8 % Normal 0.0-2.5 [facility] ([place]) Comment on above: Performed By: #### A LIZ, LIP, CBC, MDW, ADIFF, CMP, GFR #### [address] [address] Eosinophil, Absolute 0.3 10 3/mcL Normal 0.0-0.4 [facility] ([place]) Comment on above: Performed By: #### A LIZ, LIP, CBC, MDW, ADIFF, CMP, GFR #### [address] [address] Eosinophils/100 WBC (Bld) 3.6 % Normal 0.0-7.0 [facility] ([place] Comment on above: Performed By: #### A LIZ, LIP, CBC, MDW, ADIFF, CMP, GFR #### [address] [address] Lymphocyte, Absolute 1.9 10 3/mcL Normal 0.8-3.9 [facility] ([place]) Comment on above: Performed By: #### A LIZ, LIP, CBC, MDW, ADIFF, CMP, GFR #### [address] [address] Lymphocytes/100 WBC (Bld) 20.2 % Normal 10.0-50.0 [facility] ([place] Comment on above: Performed By: #### A LIZ, LIP, CBC, MDW, ADIFF, CMP, GFR #### [address] [address] Monocyte, Absolute 0.7 10 3/mcL Normal 0.2-1.0 [facility] ([place] Comment on above: Performed By: #### A LIZ, LIP, CBC, MDW, ADIFF, CMP, GFR #### [address] [address] Monocytes/100 WBC (Bld) 7.5 % Normal 1.7-13.0 [facility] ([place] Comment on above: Performed By: #### A LIZ, LIP, CBC, MDW, ADIFF, CMP, GFR #### [address] [address] Neutrophils/100 WBC (Bld) 67.9 % Normal 37.0-80.0 [facility] [place] Comment on above: Performed By: #### A LIZ, LIP, CBC, MDW, ADIFF, CMP, GFR #### [address] [address] .GFRon 07-07-2023 GFR 88 ml/min/1.73sqm Normal [facility] ([place]) Comment on above: Result Comment: GFR Population mean for , Non- Americans Ages 20-29 = 116 mL/min/1.73 sq.m. Ages 30-39 = 107 mL/min/1.73 sq.m. Ages 40-49 = 99 mL/min/1.73 sq.m. Ages 50-59 = 93 mL/min/1.73 sq.m. Ages 60-69 = 85 mL/min/1.73 sq.m. Ages 70+ = 75 mL/min/1.73 sq.m. Chronic Kidney Disease: Less than 60 mL/min/1.73 square meters End Stage Renal Disease: Less than 15 mL/min/1.73 square meters Performed By: #### A LIZ, LIP, CBC, MDW, ADIFF, CMP, GFR #### [address] [address] GFR Non- 73 ml/min/1.73sqm Normal [facility] ([place]) Comment on above: Result Comment: GFR Population mean for , Non- Americans Ages 20-29 = 116 mL/min/1.73 sq.m. Ages 30-39 = 107 mL/min/1.73 sq.m. Ages 40-49 = 99 mL/min/1.73 sq.m. Ages 50-59 = 93 mL/min/1.73 sq.m. Ages 60-69 = 85 mL/min/1.73 sq.m. Ages 70+ = 75 mL/min/1.73 sq.m. Chronic Kidney Disease: Less than 60 mL/min/1.73 square meters End Stage Renal Disease: Less than 15 mL/min/1.73 square meters Performed By: #### A LIZ, LIP, CBC, MDW, ADIFF, CMP, GFR #### [address] [address] .MDWon 07-07-2023 Monocyte Distribution Width 16.74 Normal 0.00-20.00 [facility] ([place]) Comment on above: Result Comment: For ED adult patients suspected of sepsis, MDW<=20.0 does not rule out sepsis or risk of sepsis Performed By: #### A LIZ, LIP, CBC, MDW, ADIFF, CMP, GFR #### [address] [address] .NEUABSon 07-07-2023 Neutrophil, Absolute 6.5 10 3/mcL High 2.9-6.2 [facility] ([place]) Comment on above: Performed By: #### A LIZ, LIP, CBC, MDW, ADIFF, CMP, GFR #### [place] [id number] CBCon 07-07-2023 Erythrocyte distribution width (RBC) [Ratio] 12.8 % Normal 11.5-14.5 [facility] ([place] Comment on above: Performed By: #### A LIZ, LIP, CBC, MDW, ADIFF, CMP, GFR #### [place] [address] Hematocrit (Bld) [Volume fraction] 41.2 % Normal 37.0-47.0 [facility] ([place] Comment on above: Performed By: #### A LIZ, LIP, CBC, MDW, ADIFF, CMP, GFR #### [place] [address] Hgb 14.5 G/dL Normal 12.0-16.0 [facility] ([place] Comment on above: Performed By: #### A LIZ, LIP, CBC, MDW, ADIFF, CMP, GFR #### [place] [address] MCH (RBC) [Entitic mass] 28.8 pg Normal 27.0-31.2 [facility] ([place] Comment on above: Performed By: #### A LIZ, LIP, CBC, MDW, ADIFF, CMP, GFR #### [place] [address] MCHC 35.2 G/dL Normal 33.0-37.0 [facility] [place] Comment on above: Performed By: #### A LIZ, LIP, CBC, MDW, ADIFF, CMP, GFR #### [place] [address] MCV (RBC) [Entitic vol] 81.8 fL Normal 80.0-94.0 [facility] [place] Comment on above: Performed By: #### A LIZ, LIP, CBC, MDW, ADIFF, CMP, GFR #### [address] [address] Platelet 296 10 3/mcL Normal 130-400 [facility] ([place] Comment on above: Performed By: #### A LIZ, LIP, CBC, MDW, ADIFF, CMP, GFR #### [address] [address] Platelet mean volume (Bld) [Entitic vol] 7.2 fL Low 7.4-10.4 [facility] [place] Comment on above: Performed By: #### A LIZ, LIP, CBC, MDW, ADIFF, CMP, GFR #### [address] [address] RBC 5.03 10 6/mcL Normal 4.20-5.40 [facility] ([place] Comment on above: Performed By: #### A LIZ, LIP, CBC, MDW, ADIFF, CMP, GFR #### [address] [address] WBC 9.5 10 3/mcL Normal 4.6-10.8 [facility] ([place] Comment on above: Performed By: #### A LIZ, LIP, CBC, MDW, ADIFF, CMP, GFR #### [address] [address] CMPon 07-07-2023 Albumin Level 3.8 G/dL Normal 3.5-5.0 [facility] [place] Comment on above: Performed By: #### A LIZ, LIP, CBC, MDW, ADIFF, CMP, GFR #### [address] [address] Albumin/Globulin [Mass ratio] 1.2 {ratio} Normal 1.1-2.5 [facility] [place] Comment on above: Performed By: #### A LIZ, LIP, CBC, MDW, ADIFF, CMP, GFR #### [address] [address] ALP [Catalytic activity/Vol] 80 U/L Normal 40-135 [facility] [place] Comment on above: Performed By: #### A LIZ, LIP, CBC, MDW, ADIFF, CMP, GFR #### [address] [address] ALT [Catalytic activity/Vol] 31 U/L Normal 14-59 [facility] [place] Comment on above: Performed By: #### A LIZ, LIP, CBC, MDW, ADIFF, CMP, GFR #### [address] [address] AST [Catalytic activity/Vol] 14 U/L Normal 10-40 [facility] [place] Comment on above: Performed By: #### A LIZ, LIP, CBC, MDW, ADIFF, CMP, GFR #### [address] [address] Bili Total 0.3 mg/dL Normal 0.2-1.0 [facility] ([place] Comment on above: Result Comment: Use of this assay is not recommended for patients undergoing treatment with eltrombopag due to the potential for falsely elevated results. Performed By: #### A LIZ, LIP, CBC, MDW, ADIFF, CMP, GFR #### [address] [address] BUN/Creatinine Ratio 11 ratio Normal 7-27 [facility] ([place] Comment on above: Performed By: #### A LIZ, LIP, CBC, MDW, ADIFF, CMP, GFR #### [address] [address] Calcium [Mass/Vol] 8.5 mg/dL Normal 8.4-10.2 [facility] ([place] Comment on above: Performed By: #### A LIZ, LIP, CBC, MDW, ADIFF, CMP, GFR #### [address] [address] Chloride [Moles/Vol] 106 mmol/L Normal 98-107 [facility] [place] Comment on above: Performed By: #### A ILZ, LIP, CBC, MDW, ADIFF, CMP, GFR #### [address] [address] CO2 [Moles/Vol] 24 mmol/L Normal 22-29 [facility] [place] Comment on above: Performed By: #### A LIZ, LIP, CBC, MDW, ADIFF, CMP, GFR #### [address] [address] Creatinine [Mass/Vol] 1.19 mg/dL High 0.55-1.02 [facility] ([place] Comment on above: Performed By: #### A LIZ, LIP, CBC, MDW, ADIFF, CMP, GFR #### [address] [address] Electrolyte Balance 11.0 mEq/L Normal 4.0-15.0 [facility] ([place]) Comment on above: Performed By: #### A LIZ, LIP, CBC, MDW, ADIFF, CMP, GFR #### [address] [address] Globulin 3.3 G/dL Normal [facility] [place] Comment on above: Performed By: #### A LIZ, LIP, CBC, MDW, ADIFF, CMP, GFR #### [address] [address] Glucose [Mass/Vol] 92 mg/dL Normal 70-105 [facility] [place] Comment on above: Performed By: #### A LIZ, LIP, CBC, MDW, ADIFF, CMP, GFR #### [address] [address] Potassium [Moles/Vol] 4.1 mmol/L Normal 3.5-5.1 [facility] [place] Comment on above: Performed By: #### A LIZ, LIP, CBC, MDW, ADIFF, CMP, GFR #### [address] [address] Sodium [Moles/Vol] 141 mmol/L Normal 136-145 [facility] [place] Comment on above: Performed By: #### A LIZ, LIP, CBC, MDW, ADIFF, CMP, GFR #### [place] [address] [place], [place] [address] Total Protein 7.1 G/dL Normal 6.4-8.2 [facility] [place] Comment on above: Performed By: #### A LIZ, LIP, CBC, MDW, ADIFF, CMP, GFR #### [place] [address] [place], [place] [address] Urea nitrogen [Mass/Vol] 13 mg/dL Normal 7-18 [facility] ([place] Comment on above: Performed By: #### A LIZ, LIP, CBC, MDW, ADIFF, CMP, GFR #### [place] [address] [place], [place] [address] LABORATORYOrdered By: Maddy Denson on 07-07-2023 Appearance (U) Cloudy *ABN* (07/07/23 5:27 PM) Invalid Interpretation Code Clear AO Auto Urine SS Bilirubin Ql (U) Negative (07/07/23 5:27 PM) Normal Negative AO Auto Urine SS Color (U) Yellow (07/07/23 5:27 PM) Normal AO Auto Urine SS Glucose Test strip (U) [Mass/Vol] Negative Normal Negative AO Auto Urine SS Hemoglobin Auto test strip (U) [Mass/Vol] Negative (07/07/23 5:27 PM) Normal Negative AO Auto Urine SS Ketones Ql (U) Negative Normal Negative AO Auto Urine SS UA Leuk Est Negative (07/07/23 5:27 PM) Normal Negative AO Auto Urine SS UA Nitrite Negative (07/07/23 5:27 PM) Normal Negative AO Auto Urine SS UA pH 7.0 (07/07/23 5:27 PM) Normal 5.0 - 8.0 AO Auto Urine SS UA Protein Trace mg/dL Normal Negative AO Auto Urine SS UA Spec Grav 1.020 (07/07/23 5:27 PM) Normal 1.015-1.025 AO Auto Urine SS UA Specimen Type Clean Catch (07/07/23 5:27 PM) Normal AO Auto Urine SS UA Urobilinogen 0.2 E.U./dL Normal 0.2-1.0 AO Auto Urine SS LABORATORYOrdered By: SYSTEM SYSTEM on 07-07-2023 Albumin BCP dye [Mass/Vol] 3.8 G/dL Normal 3.5 - 5.0 G/dL AO ADM SS Albumin/Globulin [Mass ratio] 1.2 {ratio} Normal 1.1 - 2.5 ratio AO ADM SS ALP [Catalytic activity/Vol] 80 U/L Normal 40 - 135 U/L AO ADM SS ALT With P-5'-P [Catalytic activity/Vol] 31 U/L Normal 14 - 59 U/L AO ADM SS AST With P-5'-P [Catalytic activity/Vol] 14 U/L Normal 10 - 40 U/L AO ADM SS Basophil, Absolute 0.1 103/mcL Normal 0.0 - 0.2 10^3/mcL AO Workflow SS Basophils/100 WBC (Bld) 0.8 % Normal 0.0 - 2.5 % AO Workflow SS Bilirubin [Mass/Vol] 0.3 mg/dL Normal 0.2 - 1 .0 mg/dL AO ADM SS Comment on above: Interpretive Data: U se of this assay is not recommended for patients undergoing treatment with eltrombopag due to the potential for falsely elevated results. Calcium [Mass/Vol] 8.5 mg/dL Normal 8.4 - 10. 2 mg/dL AO ADM SS Chloride [Moles/Vol] 106 mmol/L Normal 98 - 10 7 mmol/L AO ADM SS CO2 [Moles/Vol] 24 mmol/L Normal 22 - 29 mmol/L AO ADM SS Creatinine [Mass/Vol] 1.19 mg/dL High 0.55 - 1.02 mg/dL AO ADM SS Electrolyte Balance 11.0 mEq/L Normal 4.0 - 15 .0 mEq/L AO ADM SS Eosinophil, Absolute 0.3 103/mcL Normal 0.0 - 0 .4 10^3/mcL AO Workflow SS Eosinophils/100 WBC (Bld) 3.6 % Normal 0.0 - 7.0 % AO Workflow SS Erythrocyte distribution width (RBC) [Ratio] 12.8 % Normal 11.5 - 14.5 % AO Workflow SS GFR/1.73 sq M.predicted among blacks MDRD (S/P/Bld) [Vol rate/Area] 88 ml/min/1.73sqm Invalid Interpretation Code AO Chemistry S Comment on above: Interpretive Data: GFR Population mean for , Non- Americans Ages 20-29 = 116 mL/min/1.73 sq.m. Ages 30-39 = 107 mL/min/1.73 sq.m. Ages 40-49 = 99 mL/min/1.73 sq.m. Ages 50-59 = 93 mL/min/1.73 sq.m. Ages 60-69 = 85 mL/min/1.73 sq.m. Ages 70+ = 75 mL/min/1.73 sq.m. Chronic Kidney Disease: Less than 60 mL/min/1.73 square meters End Stage Renal Disease: Less than 15 mL/min/1.73 square meters GFR/1.73 sq M.predicted among non-blacks MDRD (S/P/Bld) [Vol rate/Area] 73 ml/min/1.73sqm Invalid Interpretation Code AO Chemistry S Comment on above: Interpretive Data: GFR Population mean for , Non- Americans Ages 20-29 = 116 mL/min/1.73 sq.m. Ages 30-39 = 107 mL/min/1.73 sq.m. Ages 40-49 = 99 mL/min/1.73 sq.m. Ages 50-59 = 93 mL/min/1.73 sq.m. Ages 60-69 = 85 mL/min/1.73 sq.m. Ages 70+ = 75 mL/min/1.73 sq.m. Chronic Kidney Disease: Less than 60 mL/min/1.73 square meters End Stage Renal Disease: Less than 15 mL/min/1.73 square meters Globulin 3.3 G/dL Invalid Interpretation Code AO ADM SS Glucose [Mass/Vol] 92 mg/dL Normal 70 - 105 mg/dL AO ADM SS Hematocrit (Bld) [Volume fraction] 41.2 % Normal 37.0 - 47.0 % AO Workflow SS Hemoglobin (Bld) [Mass/Vol] 14.5 G/dL Normal 12.0 - 16.0 G/dL AO Workflow SS Lipase [Catalytic activity/Vol] 19 U/L Normal 16 - 77 U/L AO ADM SS Lymphocyte, Absolute 1.9 103/mcL Normal 0.8 - 3 .9 10^3/mcL AO Workflow SS Lymphocytes/100 WBC (Bld) 20.2 % Normal 10.0 - 50.0 % AO Workflow SS MCH (RBC) [Entitic mass] 28.8 pg Normal 27.0 - 31.2 pg AO Workflow SS MCHC 35.2 G/dL Normal 33.0 - 37.0 G/dL AO Workflow SS MCV (RBC) [Entitic vol] 81.8 fL Normal 80.0 - 94.0 fL AO Workflow SS Monocyte distribution width Auto (Bld) [Entitic vol] 16.74 1 Normal 0.00 - 20.00 AO Workflow SS Comment on above: Result Comment: For ED adult patients suspected of sepsis, MDW<=20.0 does not rule out sepsis or risk of sepsis Monocyte, Absolute 0.7 103/mcL Normal 0.2 - 1.0 10^3/mcL AO Workflow SS Monocytes/100 WBC (Bld) 7.5 % Normal 1.7 - 13.0 % AO Workflow SS Neutrophil, Absolute 6.5 103/mcL High 2.9 - 6 .2 10^3/mcL AO Workflow SS Neutrophils/100 WBC (Bld) 67.9 % Normal 37.0 - 80.0 % AO Workflow SS Platelet mean volume (Bld) [Entitic vol] 7.2 fL Low 7.4 - 10.4 fL AO Workflow SS Platelets (Bld) [#/Vol] 296 103/mcL Normal 130 - 400 10^3/mcL AO Workflow SS Potassium [Moles/Vol] 4.1 mmol/L Normal 3.5 - 5.1 mmol/L AO ADM SS Protein [Mass/Vol] 7.1 G/dL Normal 6.4 - 8.2 G/dL AO ADM SS RBC (Bld) [#/Vol] 5.03 106/mcL Normal 4.20 - 5.4 0 10^6/mcL AO Workflow SS Sodium [Moles/Vol] 141 mmol/L Normal 136 - 145 mmol/L AO ADM SS Urea nitrogen [Mass/Vol] 13 mg/dL Normal 7 - 18 mg/dL AO ADM SS Urea nitrogen/Creatinine [Mass ratio] 11 ratio Normal 7 - 27 ratio AO ADM SS WBC (Bld) [#/Vol] 9.5 103/mcL Normal 4.6 - 10.8 10^3/mcL AO Workflow SS LIPon 07-07-2023 Lipase Level 19 U/L Normal 16-77 [facility] ([place]) Comment on above: Performed By: #### A LIZ, LIP, CBC, MDW, ADIFF, CMP, GFR #### [address] [place], [place] [address] UAon 07-07-2023 Color (U) Yellow Normal [facility] ([place] Comment on above: Performed By: #### U A ####[address] [place], [place] [address] Glucose (U) [Mass/Vol] Negative Normal Negative [facility] ([place] Comment on above: Performed By: #### U A ####[address] [place], [place] [address] Ketones Ql (U) Negative Normal Negative [facility] ([place] Comment on above: Performed By: #### U A ####[address] [place], [place] [address] UA Appear Cloudy Abnormal Clear [facility] ([place] Comment on above: Performed By: #### U A ####[address] [place], [place] [address] UA Blood Negative Normal Negative [facility] ([place] Comment on above: Performed By: #### U A ####[address] [place], [place] [address] UA Leuk Est Negative Normal Negative [facility] ([place] Comment on above: Performed By: #### U A ####[address] [place], [place] [address] UA Nitrite Negative Normal Negative [facility] ([place] Comment on above: Performed By: #### U A ####[address] [place], [place] [address] UA pH 7.0 Normal 5.0 - 8.0 [facility] ([place] Comment on above: Performed By: #### U A ####[address] [place], [place] [address] UA Protein Trace Normal Negative [facility] ([place] Comment on above: Performed By: #### U A ####[address] [place] [id number] UA Spec Grav 1.020 Normal 1.015-1.025 [facility] ([place] Comment on above: Performed By: #### U A ####[address] [place], [place] [address] UA Specimen Type Clean Catch Normal [facility] ([place] Comment on above: Performed By: #### U A ####[address] [place], [place] [address] UA Urobilinogen 0.2 E.U./dL Normal 0.2-1.0 [facility] ([place] Comment on above: Performed By: #### U A ####[address] [place], [place] [address] Urobilinogen (U) [Mass/Vol] Negative Normal Negative [facility] ([place] Comment on above: Performed By: #### U A ####[address] [place], [place] [address] US ABDOMEN COMPLETEon 2023 US ABDOMEN COMPLETE ORIGINAL EXAMINATION: COMPLETE ABDOMINAL ULTRASOUND 07/07/2023 4:41 pm COMPARISON: CT abdomen pelvis 05/15/2023 HISTORY: ORDERING SYSTEM PROVIDED HISTORY: Reason for Exam: abdominal pain; suspect gallstones, gallbladder, or cholecystitis FINDINGS: LIVER: The liver demonstrates normal echogenicity without evidence of intrahepatic biliary ductal dilatation. Main portal vein is patent with normal direction of flow. BILIARY SYSTEM: Gallbladder is unremarkable without evidence of pericholecystic fluid, wall thickening or stones. Negative sonographic Christian's sign. Common bile duct is within normal limits measuring 0.3 cm. KIDNEYS: The right kidney measures 10.5 cm in length. The left kidney measures 12.0 cm in length. There is a 1.8 cm simple cyst in the superior left renal pole, no follow-up required. Possible 0.8 cm left inferior renal pole nonobstructive calculus. No hydronephrosis. PANCREAS: Visualized portions of the pancreas are grossly unremarkable. SPLEEN: The spleen is unremarkable in appearance. Spleen is within normal limits in size measuring 12.6 cm. OTHER: No evidence of ascites. IMPRESSION: Suboptimal exam due to patient body habitus and overlying bowel gas. No definite acute findings within the confines. I have personally reviewed the images of this examination and agree with the resident's findings and interpretation. Interpreted by: Gerard Ken Preliminary Report By: Harman May Electronically signed By Gerard Ken Dictated Date: 07/07/2023 4:54:25 PM Prelim Date: 07/07/2023 4:58:33 PM Sign Date: 07/07/2023 5:13:26 PM Ordering Provider: TA ARAGON Normal [facility]) BMPon 05-19-2023 Creatinine [Mass/Vol] 1.15 mg/dL High 0.55-1.02 [facility] ([place]) Comment on above: Result Comment: Refe rence range changed due to change in patient's sex at 13:28:47. Normal Low changed from not defined to 0.55. Normal High changed from not defined to 1.02. Result flag changed from not applied to H. Performed By: #### A LIZ, CBC, ADIFF, BMP, MDW, GFR ####[address] [place], [place] [address] [facility] 05-19-2023 Hematocrit (Bld) [Volume fraction] 42.0 % Normal 37.0-47.0 [facility] ([place] Comment on above: Result Comment: Refe rence range changed due to change in patient's sex at 13:28:47. Normal Low changed from not defined to 37.0. Normal High changed from not defined to 47.0. Result flag changed from not applied to within range. Performed By: #### A LIZ, CBC, ADIFF, BMP, MDW, GFR ####[address] [place], [place] [address] Hgb 14.3 G/dL Normal 12.0-16.0 [facility] ([place] Comment on above: Result Comment: Refe rence range changed due to change in patient's sex at 13:28:47. Normal Low changed from not defined to 12.0. Normal High changed from not defined to 16.0. Result flag changed from not applied to within range. Performed By: #### A LIZ, CBC, ADIFF, BMP, MDW, GFR ####[address] [place], [place] [address] MCHC 34.1 G/dL Normal 33.0-37.0 [facility] ([place] Comment on above: Result Comment: Refe rence range changed due to change in patient's sex at 13:28:47. Normal Low changed from not defined to 33.0. Normal High changed from not defined to 37.0. Result flag changed from not applied to within range. Performed By: #### A LIZ, CBC, ADIFF, BMP, MDW, GFR ####[address] [place], [place] [address] RBC 4.98 10 6/mcL Normal 4.20-5.40 [facility] ([place] Comment on above: Result Comment: Refe rence range changed due to change in patient's sex at 13:28:47. Normal Low changed from not defined to 4.20. Normal High changed from not defined to 5.40. Result flag changed from not applied to within range. Performed By: #### A LIZ, CBC, ADIFF, BMP, MDW, GFR ####[address] [place], [place] [address] CT ABD/PELVIS W/ IV CONTRAST ONLYon 05-16-2023 CT ABD/PELVIS W/ IV CONTRAST ONLY ORIGINAL EXAMINATION: CT OF THE ABDOMEN AND PELVIS WITH CONTRAST05/15/2023 10:10 pm TECHNIQUE: CT of the abdomen and pelvis was performed with the administration of intravenous contrast. Multiplanar reformatted images are provided for review. Automated exposure control, iterative reconstruction, and/or weight based adjustment of the mA/kV was utilized to reduce the radiation dose to as low as reasonably achievable. COMPARISON: None HISTORY: ORDERING SYSTEM PROVIDED HISTORY: Reason for Exam: Flank pain FINDINGS: Bones: No acute osseous abnormalities. Stabilization pratima and screw fixation of the thoracolumbar spine. Lower Thorax: The included lung bases are clear. There is no visible pleural or pericardial effusion. The heart is normal in size. Solid Organs: The liver, gallbladder, pancreas, spleen, and adrenal glands are normal. Collecting System: Mildly delayed right nephrogram. Mild right hydroureteronephrosis secondary to a 0.3 cm calculus at the right UVJ. Nonobstructive left-sided nephrolithiasis measuring up to 0.4 cm. 2.3 cm left renal cyst. Pelvis: The bladder is incompletely distended, however appears grossly unremarkable. The prostate is unremarkable. GI Tract: The stomach and small bowel are normal. The colon is normal. The appendix is normal. Vasculature: The vena cava and portal system is normal. Nonaneurysmal aorta. Lymph Nodes, Mesentery, and Peritoneum: No lymphadenopathy is identified. No free intraperitoneal fluid or gas is identified. Superficial Soft Tissues: Normal abdominal wall. IMPRESSION: Mildly delayed right nephrogram with mild right hydroureteronephrosis secondary to a 0.3 cm calculus at the right UVJ. Additional nonobstructive left nephrolithiasis. Preliminary Report was Dictated by a Resident I have personally reviewed all of the images of this examination and agree with the resident findings and interpretation. Interpreted by: Rylan Bass MD Preliminary Report By: Vandana Govea Electronically signed By Rylan Bass MD Dictated Date: 05/15/2023 10:19:44 PM Prelim Date: 05/15/2023 10:25:55 PM Sign Date: 05/15/2023 11:09:50 PM Ordering Provider: TUNDE English [facility] ([place]) .Auto Diffon 05-15-2023 Basophil, Absolute 0.1 10 3/mcL Normal 0.0-0.2 [facility]) Comment on above: Performed By: #### A LIZ, CBC, ADIFF, BMP, MDW, GFR ####[place] [address] [place], [place] [address] Basophils/100 WBC (Bld) 0.6 % Normal 0.0-2.5 [facility] ([place] Comment on above: Performed By: #### A LIZ, CBC, ADIFF, BMP, MDW, GFR ####[place] [address] [place], [place] [address] Eosinophil, Absolute 0.2 10 3/mcL Normal 0.0-0.4 [facility] ([place]) Comment on above: Performed By: #### A LIZ, CBC, ADIFF, BMP, MDW, GFR ####[place] [address] [place], [place] [address] Eosinophils/100 WBC (Bld) 1.8 % Normal 0.0-7.0 [facility] ([place] Comment on above: Performed By: #### A LIZ, CBC, ADIFF, BMP, MDW, GFR ####[address] [place], [place] [address] Lymphocyte, Absolute 2.6 10 3/mcL Normal 0.8-3.9 [facility] ([place]) Comment on above: Performed By: #### A LIZ, CBC, ADIFF, BMP, MDW, GFR ####[address] [place], [place] [address] Lymphocytes/100 WBC (Bld) 21.1 % Normal 10.0-50.0 [facility] ([place] Comment on above: Performed By: #### A LIZ, CBC, ADIFF, BMP, MDW, GFR ####[address] [place], [place] [address] Monocyte, Absolute 1.0 10 3/mcL Normal 0.2-1.0 [facility] ([place]) Comment on above: Performed By: #### A LIZ, CBC, ADIFF, BMP, MDW, GFR ####[address] [place], [place] [address] Monocytes/100 WBC (Bld) 8.0 % Normal 1.7-13.0 [facility] ([place] Comment on above: Performed By: #### A LIZ, CBC, ADIFF, BMP, MDW, GFR ####[address] [place], [place] [address] Neutrophils/100 WBC (Bld) 68.5 % Normal 37.0-80.0 [facility] ([place] Comment on above: Performed By: #### A LIZ, CBC, ADIFF, BMP, MDW, GFR ####[address] [place], [place] [address] .GFRon 05-15-2023 GFR Non- 76 ml/min/1.73sqm Normal [facility] ([place] Comment on above: Result Comment: GFR Population mean for , Non- Americans Ages 20-29 = 116 mL/min/1.73 sq.m. Ages 30-39 = 107 mL/min/1.73 sq.m. Ages 40-49 = 99 mL/min/1.73 sq.m. Ages 50-59 = 93 mL/min/1.73 sq.m. Ages 60-69 = 85 mL/min/1.73 sq.m. Ages 70+ = 75 mL/min/1.73 sq.m. Chronic Kidney Disease: Less than 60 mL/min/1.73 square meters End Stage Renal Disease: Less than 15 mL/min/1.73 square meters Performed By: #### A LIZ, CBC, ADIFF, BMP, MDW, GFR ####[address] [place], [place] [address] GFR 92 ml/min/1.73sqm Normal [facility] ([place] Comment on above: Result Comment: GFR Population mean for , Non- Americans Ages 20-29 = 116 mL/min/1.73 sq.m. Ages 30-39 = 107 mL/min/1.73 sq.m. Ages 40-49 = 99 mL/min/1.73 sq.m. Ages 50-59 = 93 mL/min/1.73 sq.m. Ages 60-69 = 85 mL/min/1.73 sq.m. Ages 70+ = 75 mL/min/1.73 sq.m. Chronic Kidney Disease: Less than 60 mL/min/1.73 square meters End Stage Renal Disease: Less than 15 mL/min/1.73 square meters Performed By: #### A LIZ, CBC, ADIFF, BMP, MDW, GFR ####[address] [place], [place] [address] .MDWon 05-15-2023 Monocyte Distribution Width 14.90 Normal 0.00-20.00 [facility] ([place]) Comment on above: Result Comment: For ED adult patients suspected of sepsis, MDW<=20.0 does not rule out sepsis or risk of sepsis Performed By: #### A LIZ, CBC, ADIFF, BMP, MDW, GFR ####[address] [place], [place] [address] .NEUABSon 05-15-2023 Neutrophil, Absolute 8.3 10 3/mcL High 2.9-6.2 [facility] ([place]) Comment on above: Performed By: #### A LIZ, CBC, MICHELLE, PACO, LEXII, GFR ####[address] [place], [place] [address] .Urinalysis Microscopic (AO) on 05-15-2023 UA Amorphus 2+ /hpf Normal [facility] ([place] Comment on above: Performed By: #### U AMICAO, UA ####[address] [place], [place] [address] UA RBC 5-10 Abnormal None Seen [facility] ([place] Comment on above: Performed By: #### U AMICAO, UA ####[address] [place], [place] [address] UA Squam Epithelial None Seen Normal None Seen [facility] ([place] Comment on above: Performed By: #### U AMICAO, UA ####[address] [place], [place] [address] UA WBC 0-5 Abnormal None Seen [facility] ([place] Comment on above: Performed By: #### U AMICAO, UA ####[address] [place], [place] [address] BMPon 05-15-2023 BUN/Creatinine Ratio 14 ratio Normal 7-27 [facility] ([place] Comment on above: Performed By: #### A LIZ, CBC, ADLG, PACO, LEXII, GFR ####[address] [place], [place] [address] Calcium [Mass/Vol] 8.3 mg/dL Low 8.4-10.2 [facility] ([place] Comment on above: Performed By: #### A LIZ, CBC, MICHELLE, LEXII ANTONIO, GFR ####[address] [place], [place] [address] Chloride [Moles/Vol] 106 mmol/L Normal 98-107 [facility] ([place] Comment on above: Performed By: #### A LIZ, CBC, ADLG, PACO, LEXII, GFR ####[address] [place], [place] [address] CO2 [Moles/Vol] 23 mmol/L Normal 22-29 [facility] ([place] Comment on above: Performed By: #### A LIZ, CBC, ADIFF, BMP, MDW, GFR ####[address] [place], [place] [address] Electrolyte Balance 12.0 mEq/L Normal 4.0-15.0 [facility] ([place] Comment on above: Performed By: #### A LIZ, CBC, ADIFF, BMP, MDW, GFR ####[address] [place], [place] [address] Glucose [Mass/Vol] 106 mg/dL High 70-105 [facility] ([place] Comment on above: Performed By: #### A LIZ, CBC, ADIFF, BMP, MDW, GFR ####[address] [place], [place] [address] Potassium [Moles/Vol] 3.9 mmol/L Normal 3.5-5.1 [facility] ([place] Comment on above: Performed By: #### A LIZ, CBC, ADIFF, BMP, MDW, GFR ####[address] [place], [place] [address] Sodium [Moles/Vol] 141 mmol/L Normal 136-145 [facility] ([place] Comment on above: Performed By: #### A LIZ, CBC, ADIFF, BMP, MDW, GFR ####[address] [place], [place] [address] Urea nitrogen [Mass/Vol] 16 mg/dL Normal 7-18 [facility] ([place] Comment on above: Performed By: #### A LIZ, CBC, ADIFF, BMP, MDW, GFR ####[address] [place], [place] [address] CBCon 05-15-2023 Erythrocyte distribution width (RBC) [Ratio] 13.3 % Normal 11.5-14.5 [facility] ([place] Comment on above: Performed By: #### A LIZ, CBC, ADIFF, BMP, MDW, GFR ####[address] [place], [place] [address] MCH (RBC) [Entitic mass] 28.8 pg Normal 27.0-31.2 [facility] ([place] Comment on above: Performed By: #### A LIZ, CBC, ADLG, LEXII ANTONIO, GFR ####[address] [place], [place] [address] MCV (RBC) [Entitic vol] 84.4 fL Normal 80.0-94.0 [facility] ([place] Comment on above: Performed By: #### A LIZ, CBC, ADLG, PACO, LEXII, GFR ####[address] [place], [place] [address] Platelet 303 10 3/mcL Normal 130-400 [facility] ([place] Comment on above: Performed By: #### A LIZ, CBC, ADLG, PACO, LEXII, GFR ####[id number] [place], [place] [address] Platelet mean volume (Bld) [Entitic vol] 7.5 fL Normal 7.4-10.4 [facility] ([place] Comment on above: Performed By: #### A LIZ, CBC, MICHELLE, LEXII ANTONIO, GFR ####[address] [place], [place] [address] WBC 12.1 10 3/mcL High 4.6-10.8 [facility] ([place] Comment on above: Performed By: #### A LIZ, CBC, ADLG, PACO, LEXII, GFR ####[id number] [place], [place] [address] LABORATORYOrdered By: Maddy Denson on 05-15-2023 Appearance (U) Slightly Cloudy *ABN* (05/15/23 8:15 PM) Invalid Interpretation Code Clear AO Auto Urine SS Bilirubin Ql (U) Negative (05/15/23 8:15 PM) Normal Negative AO Auto Urine SS Color (U) Yellow (05/15/23 8:15 PM) Normal AO Auto Urine SS Crystals.amorphous LM.HPF (Urine sed) [#/Area] 2 /[HPF] Normal AO Auto Urine SS Glucose Test strip (U) [Mass/Vol] Negative Normal Negative AO Auto Urine SS Hemoglobin Auto test strip (U) [Mass/Vol] Small *ABN* (05/15/23 8:15 PM) Invalid Interpretation Code Negative AO Auto Urine SS Ketones Ql (U) Negative Normal Negative AO Auto Urine SS UA Leuk Est Negative (05/15/23 8:15 PM) Normal Negative AO Auto Urine SS UA Nitrite Negative (05/15/23 8:15 PM) Normal Negative AO Auto Urine SS UA pH 8.0 (05/15/23 8:15 PM) Normal 5.0 - 8.0 AO Auto Urine SS UA Protein Trace mg/dL Normal Negative AO Auto Urine SS UA RBC 5-10 /HPF Invalid Interpretation Code None Seen AO Auto Urine SS UA Spec Grav 1.025 (05/15/23 8:15 PM) Normal 1.015-1.025 AO Auto Urine SS UA Specimen Type Void (05/15/23 8:15 PM) Normal AO Auto Urine SS UA Squam Epithelial None Seen /HPF Normal None Seen A O Auto Urine SS UA Urobilinogen 0.2 E.U./dL Normal 0.2-1.0 AO Auto Urine SS WBC LM.HPF (Urine sed) [#/Area] 0-5 /HPF Invalid Interpretation Code None Seen AO Auto Urine SS LABORATORYOrdered By: SYSTEM SYSTEM on 05-15-2023 Basophil, Absolute 0.1 103/mcL Normal 0.0 - 0.2 10^3/mcL AO Workflow SS Basophils/100 WBC (Bld) 0.6 % Normal 0.0 - 2.5 % AO Workflow SS Calcium [Mass/Vol] 8.3 mg/dL Low 8.4 - 10. 2 mg/dL AO ADM SS Chloride [Moles/Vol] 106 mmol/L Normal 98 - 10 7 mmol/L AO ADM SS CO2 [Moles/Vol] 23 mmol/L Normal 22 - 29 mmol/L AO ADM SS Creatinine [Mass/Vol] 1.15 mg/dL Invalid Interpretation Code AO ADM SS Electrolyte Balance 12.0 mEq/L Normal 4.0 - 15 .0 mEq/L AO ADM SS Eosinophil, Absolute 0.2 103/mcL Normal 0.0 - 0 .4 10^3/mcL AO Workflow SS Eosinophils/100 WBC (Bld) 1.8 % Normal 0.0 - 7.0 % AO Workflow SS Erythrocyte distribution width (RBC) [Ratio] 13.3 % Normal 11.5 - 14.5 % AO Workflow SS GFR/1.73 sq M.predicted among blacks MDRD (S/P/Bld) [Vol rate/Area] 92 ml/min/1.73sqm Invalid Interpretation Code AO Chemistry S Comment on above: Interpretive Data: GFR Population mean for , Non- Americans Ages 20-29 = 116 mL/min/1.73 sq.m. Ages 30-39 = 107 mL/min/1.73 sq.m. Ages 40-49 = 99 mL/min/1.73 sq.m. Ages 50-59 = 93 mL/min/1.73 sq.m. Ages 60-69 = 85 mL/min/1.73 sq.m. Ages 70+ = 75 mL/min/1.73 sq.m. Chronic Kidney Disease: Less than 60 mL/min/1.73 square meters End Stage Renal Disease: Less than 15 mL/min/1.73 square meters GFR/1.73 sq M.predicted among non-blacks MDRD (S/P/Bld) [Vol rate/Area] 76 ml/min/1.73sqm Invalid Interpretation Code AO Chemistry S Comment on above: Interpretive Data: GFR Population mean for , Non- Americans Ages 20-29 = 116 mL/min/1.73 sq.m. Ages 30-39 = 107 mL/min/1.73 sq.m. Ages 40-49 = 99 mL/min/1.73 sq.m. Ages 50-59 = 93 mL/min/1.73 sq.m. Ages 60-69 = 85 mL/min/1.73 sq.m. Ages 70+ = 75 mL/min/1.73 sq.m. Chronic Kidney Disease: Less than 60 mL/min/1.73 square meters End Stage Renal Disease: Less than 15 mL/min/1.73 square meters Glucose [Mass/Vol] 106 mg/dL High 70 - 105 mg/dL AO ADM SS Hematocrit (Bld) [Volume fraction] 42.0 % Invalid Interpretation Code AO Workflow SS Hemoglobin (Bld) [Mass/Vol] 14.3 G/dL Invalid Interpretation Code AO Workflow SS Lymphocyte, Absolute 2.6 103/mcL Normal 0.8 - 3 .9 10^3/mcL AO Workflow SS Lymphocytes/100 WBC (Bld) 21.1 % Normal 10.0 - 50.0 % AO Workflow SS MCH (RBC) [Entitic mass] 28.8 pg Normal 27.0 - 31.2 pg AO Workflow SS MCHC 34.1 G/dL Invalid Interpretation Code AO Workflow SS MCV (RBC) [Entitic vol] 84.4 fL Normal 80.0 - 94.0 fL AO Workflow SS Monocyte distribution width Auto (Bld) [Entitic vol] 14.90 1 Normal 0.00 - 20.00 AO Workflow SS Comment on above: Result Comment: For ED adult patients suspected of sepsis, MDW<=20.0 does not rule out sepsis or risk of sepsis Monocyte, Absolute 1.0 103/mcL Normal 0.2 - 1.0 10^3/mcL AO Workflow SS Monocytes/100 WBC (Bld) 8.0 % Normal 1.7 - 13.0 % AO Workflow SS Neutrophil, Absolute 8.3 103/mcL High 2.9 - 6 .2 10^3/mcL AO Workflow SS Neutrophils/100 WBC (Bld) 68.5 % Normal 37.0 - 80.0 % AO Workflow SS Platelet mean volume (Bld) [Entitic vol] 7.5 fL Normal 7.4 - 10.4 fL AO Workflow SS Platelets (Bld) [#/Vol] 303 103/mcL Normal 130 - 400 10^3/mcL AO Workflow SS Potassium [Moles/Vol] 3.9 mmol/L Normal 3.5 - 5.1 mmol/L AO ADM SS RBC (Bld) [#/Vol] 4.98 106/mcL Invalid Interpretation Code AO Workflow SS Sodium [Moles/Vol] 141 mmol/L Normal 136 - 145 mmol/L AO ADM SS Urea nitrogen [Mass/Vol] 16 mg/dL Normal 7 - 18 mg/dL AO ADM SS Urea nitrogen/Creatinine [Mass ratio] 14 ratio Normal 7 - 27 ratio AO ADM SS WBC (Bld) [#/Vol] 12.1 103/mcL High 4.6 - 10.8 10^3/mcL AO Workflow SS UAon 05-15-2023 Color (U) Yellow Normal [facility] ([place]) Comment on above: Performed By: #### U ASTON LAWSON #### [place] [id number] Glucose (U) [Mass/Vol] Negative Normal Negative [facility] ([place] Comment on above: Performed By: #### U AMICAO, UA #### Geraldo [address] [address] Ketones Ql (U) Negative Normal Negative [facility] ([place] Comment on above: Performed By: #### U AMICAO, UA #### [address] [place] [address] UA Appear Slightly Cloudy Abnormal Clear [facility] ([place] Comment on above: Performed By: #### U AMICAO, UA #### [address] [place] [address] UA Blood Small Abnormal Negative [facility] ([place] Comment on above: Performed By: #### U AMICAO, UA #### [address] [place] [address] UA Leuk Est Negative Normal Negative [facility] ([place] Comment on above: Performed By: #### U AMICAO, UA #### [address] [place] [address] UA Nitrite Negative Normal Negative [facility] ([place] Comment on above: Performed By: #### U AMICAO, UA #### Geraldo [place] [id number] UA pH 8.0 Normal 5.0 - 8.0 [facility] ([place] Comment on above: Performed By: #### U AMICAO, UA #### [address] [place] [address] UA Protein Trace Normal Negative [facility] ([place] Comment on above: Performed By: #### U AMICAO, UA #### [address] [place] [address] UA Spec Grav 1.025 Normal 1.015-1.025 [facility] ([place] Comment on above: Performed By: #### U AMICAO, UA #### [address] [place] [address] UA Specimen Type Void Normal [facility] ([place] Comment on above: Performed By: #### U AMICAO, UA #### [facility] [address] [place], [place] [address] UA Urobilinogen 0.2 E.U./dL Normal 0.2-1.0 [facility] ([place] Comment on above: Performed By: #### U AMICAO, UA #### G[address]do [address] [place], [place] [address] Urobilinogen (U) [Mass/Vol] Negative Normal Negative [facility] ([place] Comment on above: Performed By: #### U AMICAO, UA #### [address] [address] Basophil percentageOrdered B y: Lissa Rahman on 11-08-2022 Cholesterol [Mass/Vol] 163 mg/dL <200 [facility] Comment on above: <200 mg/dL Desirable 200-240 mg/dL Borderline >240 mg/dL High Risk Triglyceride [Mass/Vol] 80 mg/dL <199 [facility] Comment on above: The drugs N-Acetylcy steine and Metamizole may falsely depress this assay.Serum Triglycerides Reference Interval Normal <150 mg/dL Borderline high 150 - 199 mg/dL High 200 - 499 mg/dL Very High > or = 500 mg/dL Serum or plasma cholesterol in HDL measurement (mass/volume)Ordered By: Lissa Rahman on 11-08-2022 Cholesterol in HDL [Mass/Vol] 41 mg/dL >40 [facility] Comment on above: The drugs N-Acetylcy steine and Metamizole may falsely depress this assay. Reference Range HDL <40 mg/dL Low HDL Cholesterol HDL >or= 60 mg/dL High HDL Cholesterol Serum or plasma cholesterol in VLDL measurement (mass/volume)Ordered By: Lissa Rahman on 11-08-2022 Cholesterol in VLDL [Mass/Vol] 16 mg/dL 5-40 [facility] Serum or plasma low density lipoprotein (LDL) cholesterol measurement (mass/volume)Ordered By: Lissa Rahman on 11-08-2022 Cholesterol in LDL [Mass/Vol] 106 mg/dL 0-130 [facility] Whole blood hemoglobin A1c/t otal hemoglobin ratio (mass fraction)Ordered By: Lissa Rahman on 11-08-2022 HbA1c (Bld) [Mass fraction] 4.8 % 3.8-5.6 [facility] Comment on above: Normal < 5.7 % Predi abetic 5.7 - 6.4 % Diabetic >or= 6.5 % Please note range changes. US ABDOMEN COMPLETEon 2022 US ABDOMEN COMPLETE ORIGINAL EXAMINATION: COMPLETE ABDOMINAL ULTRASOUND 09/26/2022 8:35 am COMPARISON: CT scan abdomen and pelvis December 2021. HISTORY: ORDERING SYSTEM PROVIDED HISTORY: Reason for Exam: RUQ pain FINDINGS: LIVER: The liver measures 17.6 cm, demonstrates normal echogenicity without evidence of intrahepatic biliary ductal dilatation. No focal liver lesions seen. BILIARY SYSTEM: Gallbladder is unremarkable without evidence of pericholecystic fluid, wall thickening or stones. Negative sonographic Christian's sign. Common bile duct is within normal limits measuring 2.3 mm. KIDNEYS: The kidneys are unremarkable in appearance without evidence of hydronephrosis. Simple cyst measuring 2 cm in left kidney PANCREAS: Pancreas almost entirely obscured by bowel gas. SPLEEN: The spleen is unremarkable in appearance. Spleen is within normal limits in size. IVC: The visualized IVC is patent. AORTA: The visualized aorta is patent without aneurysm. Proximal aorta measures 1.9 x 1.8 cm, mid aorta measures 1.9 x 1.8 cm, distal aorta measures 1.5 x 1.7 cm. OTHER: No evidence of ascites. IMPRESSION: Unremarkable abdominal ultrasound. No acute finding the pancreas is suboptimally visualized. I have personally reviewed the images of this examination and agree with the resident's findings and interpretation. Interpreted by: Bernard Jean Baptiste MD Preliminary Report By: Bryn Singh Electronically signed By Bernard Jean Baptiste MD Dictated Date: 09/27/2022 1:23:51 PM Prelim Date: 09/27/2022 4:19:03 PM Sign Date: 09/27/2022 4:19:03 PM Ordering Provider: BUDDY RINCON [facility] ([place]) Stool Helicobacter pylori an tigen detection by immunoassayon 09-22-2021 H. pylori Ag IA Ql (Stl) Negative Negative [facility] Work Phone: Comment on above: Performed at: [address], [place], [place] [id number] Director: Allan Gibbons MD, Phone: [phone] Absolute lymphocyte counton 09-21-2021 Lymphocytes Auto (Unsp spec) [#/Vol] 1.84 10*3/uL 0.83-4.51 [facility] Work Phone: Basophil percentageon 2021 Basophils/100 WBC (Bld) 0.5 % 0-1 [facility] Work Phone: Bilirubin [Mass/Vol] 0.40 mg/dL 0.20-1.00 [facility] Work Phone: Comment on above: For patients on eltr ombopag therapy, use of Dimension [place] TBIL is not recommended. Chloride [Moles/Vol] 110 mmol/L 98-107 [facility] Work Phone: Eosinophils/100 WBC (Bld) 2.0 % 0-5 [facility] Work Phone: Glucose [Mass/Vol] 88 mg/dL 74-106 [facility] Work Phone: Neutrophils (Bld) [#/Vol] 6.1 10*3/uL 2.0-7.7 [facility] Work Phone: Neutrophils/100 WBC (Bld) 68.9 % 47-70 [facility] Work Phone: Potassium [Moles/Vol] 3.7 mmol/L 3.5-5.1 [facility] Work Phone: Protein [Mass/Vol] 7.6 g/dL 6.4-8.2 [facility] Work Phone: Sodium [Moles/Vol] 139 mmol/L 136-145 [facility] Work Phone: WBC (Bld) [#/Vol] 8.8 10*3/uL 4.4-11.0 [facility] Work Phone: Blood erythrocytes count (nu mber/volume)on 09-21-2021 RBC (Bld) [#/Vol] 5.43 10*6/uL 4.6-6.2 [facility] Work Phone: Blood hemoglobin measurement (mass/volume)on 09-21-2021 Hemoglobin (Bld) [Mass/Vol] 15.6 g/dL 13.0-16.5 [facility] Work Phone: [phone] Blood lymphocytes/100 leukoc yteson 09-21-2021 Lymphocytes/100 WBC (Bld) 20.8 % 19-41 [facility] Work Phone: [phone] Blood monocytes/100 leukocyt eson 09-21-2021 Monocytes/100 WBC (Bld) 7.6 % 0-10 [facility] Work Phone: Blood platelet mean volumeon 09-21-2021 Platelet mean volume (Bld) [Entitic vol] 10.2 fL 6.2-12.0 [facility] Work Phone: Chocolate RASTon 09-21-2021 Chocolate IgE Qn (S) <0.10 kU/L Class 0 [facility] Work Phone: Comment on above: Performed at: [address] [id number] Director: Allan Gibbons MD, Phone: [phone] Determination of erythrocyte mean corpuscular volume (MCV)on 09-21-2021 MCV (RBC) [Entitic vol] 85.3 fL 80-94 [facility] Work Phone: Hematocrit Auto (Bld) [Volum e fraction]on 09-21-2021 Hematocrit (Bld) [Volume fraction] 46.3 % 40-54 [facility] Work Phone: Laboratory - Chemistry and C hemistry - challengeon 09-21-2021 ALP [Catalytic activity/Vol] 71 U/L 45-117 [facility] Work Phone: ALT [Catalytic activity/Vol] 22 U/L 16-61 [facility] Work Phone: CO2 [Moles/Vol] 25.0 mmol/L 21.0-32.0 [facility] Work Phone: [phone] Globulin (S) [Mass/Vol] 3.5 g/dL 2.2-4.2 [facility] Work Phone: [phone] Urea nitrogen/Creatinine [Mass ratio] 17.6 mg/mg 10-20 [facility] Work Phone: [phone] Laboratory - Hematology and Cell countson 09-21-2021 Erythrocyte distribution width (RBC) [Entitic vol] 42.5 fL 35.1-43.9 [facility] Work Phone: [phone] Erythrocyte distribution width (RBC) [Ratio] 13.7 % 11.6-14.6 [facility] Work Phone: [phone] Immature granulocytes/100 WBC (Bld) 0.200 % 0.0-0.9 [facility] Work Phone: [phone] Comment on above: IG% - Immature Granu locytes (promyelocytes, myelocytes and metamyelocytes) > 1% indicates that a LEFT SHIFT is Present. MCH (RBC) [Entitic mass] 28.7 pg 27.0-32.0 [facility] Work Phone: [phone] Nucleated RBC/100 WBC (Bld) [Ratio] 0 % 0-5 [facility] Work Phone: [phone] Laboratory - Miscellaneous t estson 09-21-2021 Service comment (Unsp spec) [Interp] Comment . [facility] Work Phone: [phone] Comment on above: Levels of Specific I gE Class Description of Class ----- < 0.10 0 Negative 0.10 - 0.31 0/I Equivocal/Low 0.32 - 0.55 I Low 0.56 - 1.40 II Moderate 1.41 - 3.90 III High 3.91 - 19.00 IV Very High 19.01 - 100.00 V Very High >100.00 Very High MCHC Auto (RBC) [Mass/Vol]on 09-21-2021 MCHC (RBC) [Mass/Vol] 33.7 g/dL 32-36 [facility] Work Phone: No Panel Informationon 09-21 Anti-Gliadin IgA Antibody 4 units 0-19 [facility] Work Phone: Comment on above: Negative 0 - 19 Weak Positive 20 - 30 Moderate to Strong Positive >30 Anti-Gliadin IgG Antibody 2 units 0-19 [facility] Work Phone: Comment on above: Negative 0 - 19 Weak Positive 20 - 30 Moderate to Strong Positive >30 Endomysial IgA Antibody Negative Negative [facility] Work Phone: Estimated GFR (MDRD) Amer 121 mL/min >60 [facility] Work Phone: Comment on above: GFR Calc Estimated GFR (MDRD) Non-Af Amer 100 mL/min >60 [facility] Work Phone: Comment on above: Non- GFR Calc Seafood [employer] Allergens (RAST) Negative . [facility] Work Phone: Comment on above: Allergens in this mi x are: Blue mussel Fish [place] Shrimp Tuna Tissue Transglutaminase IgG Ab <2 U/mL 0-5 [facility] Work Phone: Comment on above: Negative 0 - 5 Weak Positive 6 - 9 Positive >9 Platelets bldon 09-21-2021 Platelets (Bld) [#/Vol] 297 10*3/uL 150-450 [facility] Work Phone: Serum IgA measurement (units /volume)on 09-21-2021 IgA Qn (S) 183 mg/dL 90-386 [facility] Work Phone: Comment on above: Performed at: [address] [id number] Director: Buddy Pena PhD, Phone: [phone] Serum beef IgE antibody assa y (units/volume)on 09-21-2021 Beef IgE Qn (S) <0.10 kU/L Class 0 [facility] Work Phone: Serum corn IgE antibody assa y (units/volume)on 09-21-2021 [place] IgE Qn (S) <0.10 kU/L Class 0 [facility] Work Phone: Serum cow milk IgE antibody assay (units/volume)on 09-21-2021 Cow milk IgE Qn (S) <0.10 kU/L Class 0 [facility] Work Phone: Serum or plasma C reactive p rotein measurement (mass/volume)on 09-21-2021 CRP [Mass/Vol] mg/L 0.0-3.0 [facility] Work Phone: Comment on above: C-Reactive Protein ( CRP) provides useful information for thediagnosis, therapy and monitoring of inflammatory processesand associated diseases. For the evaluation of Relative Riskfor Cardiovascular Disease, a High Sensitivity CRP (HSCRP)should be ordered. Serum or plasma albumin corrine urement (mass/volume)on 09-21-2021 Albumin [Mass/Vol] 4.1 g/dL 3.2-5.0 [facility] Work Phone: Serum or plasma albumin/glob ulin mass ratioon 09-21-2021 Albumin/Globulin [Mass ratio] 1.2 {ratio} 0.9-2.4 [facility] Work Phone: Serum or plasma calcium corrine urement (mass/volume)on 09-21-2021 Calcium [Mass/Vol] 8.8 mg/dL 8.5-10.1 [facility] Work Phone: Serum or plasma creatinine m easurement (mass/volume)on 09-21-2021 Creatinine [Mass/Vol] 0.96 mg/dL 0.70-1.30 [facility] Work Phone: Comment on above: The validity of the calculated GFR & GFRAA in patients over 70 years has not been determined. Clinical correlation is essential. Serum or plasma urea nitroge n measurement (mass/volume)on 09-21-2021 Urea nitrogen [Mass/Vol] 17 mg/dL 7-18 [facility] Work Phone: Serum peanut IgE antibody as say (units/volume)on 09-21-2021 Peanut IgE Qn (S) <0.10 kU/L Class 0 [facility] Work Phone: Serum pork IgE antibody assa y (units/volume)on 09-21-2021 Pork IgE Qn (S) <0.10 kU/L Class 0 [facility] Work Phone: Serum soybean IgE antibody a ssay (units/volume)on 09-21-2021 Soybean IgE Qn (S) <0.10 kU/L Class 0 [facility] Work Phone: Serum tissue transglutaminas e IgA antibody assay (units/volume)on 09-21-2021 tTG IgA Qn (S) <2 U/mL 0-3 [facility] Work Phone: Comment on above: Negative 0 - 3 Weak Positive 4 - 10 Positive >10 Tissue Transglutaminase (tTG) has been identified as the endomysial antigen. Studies have demonstr- ated that endomysial IgA antibodies have over 99% specificity for gluten sensitive enteropathy. Serum wheat IgE antibody ass ay (units/volume)on 09-21-2021 Wheat IgE Qn (S) <0.10 kU/L Class 0 [facility] Work Phone: Serum whole egg IgE antibody assay (units/volume)on 09-21-2021 Whole Egg IgE Qn (S) <0.10 kU/L Class 0 [facility] Work Phone: Thin prep Papanicolaou smear with manual screeningon 09-21-2021 Thin prep Papanicolaou smear with manual screening 12 U/L 15-37 [facility] Work Phone: Thin prep Papanicolaou smear with manual screening 4 5-15 [facility] Work Phone: Absolute lymphocyte counton 07-07-2021 Lymphocytes Auto (Unsp spec) [#/Vol] 1.87 10*3/uL 0.83-4.51 [facility] Work Phone: Basophil percentageon 2021 Basophils/100 WBC (Bld) 0.7 % 0-1 [facility] Work Phone: Bilirubin [Mass/Vol] 0.30 mg/dL 0.20-1.00 [facility] Work Phone: Comment on above: For patients on eltr ombopag therapy, use of Dimension [place] TBIL is not recommended. Eosinophils/100 WBC (Bld) 1.3 % 0-5 [facility] Work Phone: Neutrophils (Bld) [#/Vol] 8.2 10*3/uL 2.0-7.7 [facility] Work Phone: Neutrophils/100 WBC (Bld) 74.1 % 47-70 [facility] Work Phone: Protein [Mass/Vol] 7.4 g/dL 6.4-8.2 [facility] Work Phone: WBC (Bld) [#/Vol] 11.0 10*3/uL 4.4-11.0 [facility] Work Phone: Blood erythrocytes count (nu mber/volume)on 07-07-2021 RBC (Bld) [#/Vol] 5.36 10*6/uL 4.6-6.2 [facility] Work Phone: Blood hemoglobin measurement (mass/volume)on 07-07-2021 Hemoglobin (Bld) [Mass/Vol] 15.4 g/dL 13.0-16.5 [facility] Work Phone: Blood lymphocytes/100 leukoc yteson 07-07-2021 Lymphocytes/100 WBC (Bld) 17.0 % 19-41 [facility] Work Phone: Blood monocytes/100 leukocyt eson 07-07-2021 Monocytes/100 WBC (Bld) 6.5 % 0-10 [facility] Work Phone: Blood platelet mean volumeon 07-07-2021 Platelet mean volume (Bld) [Entitic vol] 9.7 fL 6.2-12.0 [facility] Work Phone: [phone] Determination of erythrocyte mean corpuscular volume (MCV)on 07-07-2021 MCV (RBC) [Entitic vol] 87.5 fL 80-94 [facility] Work Phone: [phone] Direct bilirubinon Bilirubin.direct [Mass/Vol] 0.11 mg/dL 0.00-0.30 [facility] Work Phone: [phone] Hematocrit Auto (Bld) [Volum e fraction]on 07-07-2021 Hematocrit (Bld) [Volume fraction] 46.9 % 40-54 [facility] Work Phone: [phone] Laboratory - Chemistry and C hemistry - challengeon 07-07-2021 ALP [Catalytic activity/Vol] 72 U/L 45-117 [facility] Work Phone: [phone] ALT [Catalytic activity/Vol] 26 U/L 16-61 [facility] Work Phone: [phone] Globulin (S) [Mass/Vol] 3.1 g/dL 2.2-4.2 [facility] Work Phone: [phone] Laboratory - Hematology and Cell countson 07-07-2021 Erythrocyte distribution width (RBC) [Entitic vol] 42.9 fL 35.1-43.9 [facility] Work Phone: [phone] Erythrocyte distribution width (RBC) [Ratio] 13.3 % 11.6-14.6 [facility] Work Phone: [phone] Immature granulocytes/100 WBC (Bld) 0.400 % 0.0-0.9 [facility] Work Phone: [phone] Comment on above: IG% - Immature Granu locytes (promyelocytes, myelocytes and metamyelocytes) > 1% indicates that a LEFT SHIFT is Present. MCH (RBC) [Entitic mass] 28.7 pg 27.0-32.0 [facility] Work Phone: [phone] Nucleated RBC/100 WBC (Bld) [Ratio] 0 % 0-5 [facility] Work Phone: MCHC Auto (RBC) [Mass/Vol]on 07-07-2021 MCHC (RBC) [Mass/Vol] 32.8 g/dL 32-36 [facility] Work Phone: Platelets bldon 07-07-2021 Platelets (Bld) [#/Vol] 312 10*3/uL 150-450 [facility] Work Phone: [phone] Serum or plasma albumin corrine urement (mass/volume)on 07-07-2021 Albumin [Mass/Vol] 4.3 g/dL 3.2-5.0 [facility] Work Phone: Thin prep Papanicolaou smear with manual screeningon 07-07-2021 Thin prep Papanicolaou smear with manual screening 13 U/L 15-37 [facility] Work Phone: COVID w FLU A+B Routon 02-26 Influenza A PCR Negative Normal [facility] Comment on above: Performed By: #### C OVFLU #### [place] [address] Influenza B PCR Negative Normal [facility] Comment on above: Performed By: #### C OVFLU #### [place] [address] SARS-CoV-2 (COVID-19) RNA BON+probe Ql (Unsp spec) UPPER RESPIRATORY TRACT SWAB Normal [facility] Comment on above: Performed By: #### C OVFLU #### [place] [address] SARS-CoV-2 (COVID-19) RNA BON+probe Ql (Unsp spec) Negative for COVID19 (SARS CoV2) by RT-PCR or equivalent method. Normal Negative for COVID19 (SARS CoV2) by RT-PCR or equivalent method. [facility] Comment on above: Result Comment: This test was developed and its performance characteristics determined by [facility]'s Siddharth Lexi [facility] [place]. This test has been authorized by FDA under an Emergency Use Authorization (EUA). This test has been validated in accordance with the FDA's Guidance Document Policy for Diagnostics Testing in Laboratories Certified to Perform High Complexity Testing under CLIA prior to Emergency use Authorization for Coronavirus Disease 2019 during the Public Health Emergency issued on April 13, 2019. Test performed by [facility], [facility] [place], [address] [address]. Performed By: #### C OVFLU #### [facility] [address] [id number] CNOVon 02-25-2021 CNOV Office Visit (UCWSTR ) -------- FLORENTINO MYERS ([id number]) 1995 M Date Time Provider Department 02/25/21 6:00 PM VASILE BARRETO [facility] During your visit today, we recorded the following information about you: Temperature Pulse Blood pressure Weight 98 degrees 82/minute 120/76 101.6 kg Vasile Barreto PA-C 02/25/2021 6:34 PM Signed How to Manage Common Symptoms Associated with COVID for Adults Fever- Fever is a temperature over 100.4 F and can occur when the body is fighting an infection. To help treat a fever: - Drink plenty of fluids and stay well hydrated. - Eat small amounts of easy to digest food. - Rest. Your body needs rest to recover, but getting up and moving around the house frequently is a good idea. You should try to continue doing your normal daily activities (bathing, toileting, grooming, cooking), though you will probably feel tired, and need to rest often. - Avoid any heavy activity or exercise, as this will increase your body temperature. - Dress in light clothing and stay covered in a light sheet. Keep the room temperature cool. - Take a slightly warm (not cold or cool) bath, or apply damp washcloths to the forehead and wrists. Cough- Cough is a common symptom associated with COVID and can be bothersome. To help treat a cough: - Stay well hydrated. Try warm water or tea with lemon and/or honey to help soothe the cough. - Use a humidifier to add moisture to the air. - Try a product with menthol, like a cough drop or a rub for your chest such as Vicks, which can help reduce cough. - Try cough drops. - Avoid smoking and other strong odors or perfumes. - Try breathing exercises to keep your lungs open and clear. Take a big deep breath through your nose and hold for 5 seconds before slowly releasing. Repeat frequently, while you are awake. Congestion- Runny nose or nasal congestion can occur with COVID. Treatment can help relieve symptoms: - Try OTC nasal saline spray, or nasal saline rinse to relieve mucus congestion. - Nasal strips can help keep nasal passages open, to increase airflow. - Elevating your head with an extra pillow in bed can help reduce congestion. - Using a humidifier can increase moisture in the air, and make breathing easier. Sore Throat- Another common symptom with COVID, can be managed at home by: - Stay well hydrated. - Gargle with salt water ? mix ? teaspoon salt with 1 cup of warm water and gargle. This helps to loosen mucus in the back of the throat and may reduce discomfort. - Try ice chips, popsicles or lozenges to soothe the throat. Nausea/Vomiting/Diarrhea - These are common symptoms, and staying hydrated is most important. - If you are nauseous or vomiting, start with small sips of water every 10-15 minutes and increase as tolerated. You can try sucking an ice cube too. - If tolerating, you can try pedialyte or Gatorade, or flat sprite or montse-mary jane. Start slowly and increase as you are able to. - Instead of meals, try smaller, more frequent snacks. Try eating bland foods like crackers, toast, rice, and applesauce. Avoid spicy, greasy or fried foods and dairy containing foods. Even if you aren't feeling hungry due to lack of smell or taste, it is important to try to take in some food when you are able. - After drinking and eating, rest in an upright position for up to two hours as needed to help decrease nauseous feelings. Try closing your eyes, avoid moving and watching TV. - Avoid strong odors that can make you feel more nauseated. When to seek emergency medical attention Look for emergency warning signs for COVID-19. If having any of these symptoms, seek emergency medical care immediately: - Trouble breathing - Persistent pain or pressure in the chest - New confusion - Inability to wake or stay awake - Bluish lips or face *This list is not all possible symptoms. Please call your medical provider for any other symptoms that are severe or concerning to you. Vasile Barreto PA-C 02/25/2021 7:00 PM Signed Subjective HPI HPI Florentino Myers is a 25 year old male who presents today for CC of chest congestion, sinus pressure, slightly SOB, headache since yesterday. Pt is vaccinated, with 2nd dose in 07/03. Yet to receive booster. Had a covid + exposure at work today. Symptoms include: Fever (?100.4F): No or Chills: No Cough: Yes Shortness of breath: Yes or Difficulty breathing: No Fatigue: Yes Muscle aches: No Headache: Yes New loss of smell or taste: No Sore throat: Yes Nasal congestion: Yes or Rhinorrhea: Yes Nausea: No or Vomiting: No Diarrhea: No OTC meds/remedies that patient has tried: NSAIDs. High risk category assessment No high risk factors Exposures: Sick contacts? Yes Family or close contacts with confirmed/probable COVID-19 in last 14 days? Yes BP 120/76 Pulse 82 Temp 36.7 ?C (98 ?F (more content not included)... Normal [facility] CNOVon 01-10-2021 CNOV Office Visit (UCWSTR ) -------- FLORENTINO MYERS ([id number]) 1995 M Date Time Provider Department 01/10/21 2:30 PM ADELINA LEO During your visit today, we recorded the following information about you: Temperature Pulse Respiration Blood pressure 98.1 degrees 112/minute 16/minute 128/88 Weight 98.5 kg Adelina Leo APRN.CNP 01/10/2021 2:49 PM Signed This note was created using [employer]. Subjective Florentino Myers is a 25 year old male. 25 year old male with PMH anxiety presents with complaints of right ear pain. Acute onset Monday night Right ear Aching Denies drainage or hearing loss. Denies fever or chills. Denies accompanying URI sx. Denies fever or chills. Denies skin rash or lesions. Has utilized Tylenol and Mucinex with mild relief. The history is provided by the patient. 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 Ear Pain This is a new problem. The current episode started in the past 7 days. The problem occurs constantly. The problem has been unchanged. Pertinent negatives include no abdominal pain, anorexia, arthralgias, change in bowel habit, chest pain, chills, congestion, coughing, diaphoresis, fatigue, fever, headaches, joint swelling, myalgias, nausea, neck pain, numbness, rash, sore throat, swollen glands, urinary symptoms, vertigo, visual change, vomiting or weakness. Nothing aggravates the symptoms. Treatments tried: Tylenol and Mucinex. The treatment provided no relief. PAST MEDICAL HISTORY Diagnosis Date - Allergic rhinitis - Anxiety - Selective mutism PAST SURGICAL HISTORY Procedure Laterality Date - REDUCE TESTES TORSION 2014 - REM LESIO TRUNK,ARM,LEG 1.1 -2.0CM Left 04/15/15 Exc. folliculitis suprpubic - TONSILLECTOMY HX 99 ALLERGIES Augmentin [Amoxicillin-Pot Clavulanate] and Lactose MEDICATIONS albuterol HFA (PROVENTIL HFA, VENTOLIN HFA) 90 mcg/actuation inhaler Inhale 2 puffs every 4 hours as needed for uncontrolled asthma symptoms ergocalciferol 50,000 unit capsule (VITAMIN D2, DRISDOL) Take 1 capsule by mouth one time a week. acetaminophen (TYLENOL) 325 mg tablet Take 650 mg by mouth every 6 hours as needed. topiramate (TOPAMAX) 200 mg tablet Take 200 mg by mouth daily at bedtime. desvenlafaxine ER (PRISTIQ) 100 mg 24 hr tablet Take 200 mg by mouth daily at bedtime. montelukast (SINGULAIR) 10 mg tablet Take 10 mg by mouth daily at bedtime. loratadine (CLARITIN) 10 mg tablet Take 10 mg by mouth once daily as needed. cefdinir (OMNICEF) 300 mg capsule Take 1 capsule by mouth twice daily for 7 days. desvenlafaxine ER (PRISTIQ) 100 mg 24 hr tablet Take 1 tablet by mouth at bedtime. Take with 50 mg desvenlafaxine desvenlafaxine ER (PRISTIQ) 50 mg 24 hr tablet Take 1 tablet by mouth at bedtime. Take with 100 mg desvenlafaxine topiramate (TOPAMAX) 200 mg tablet Take 3 tablets by mouth at bedtime desvenlafaxine ER (PRISTIQ) 100 mg 24 hr tablet Take 1 tablet by mouth at bedtime with 50 mg desvenlafaxine desvenlafaxine ER (PRISTIQ) 50 mg 24 hr tablet Take 1 tablet by mouth at bedtime with 100 mg desvenlafaxine topiramate (TOPAMAX) 200 mg tablet Take 3 tablets by mouth at bedtime montelukast (SINGULAIR) 10 mg tablet Take 1 tablet (10 mg) by mouth daily in the evening desvenlafaxine ER (PRISTIQ) 50 mg 24 hr tablet Take 1 tablet by mouth daily at bedtime with 100mg desvenlafaxine. desvenlafaxine ER (PRISTIQ) 100 mg 24 hr tablet Take 1 tablet by mouth daily at bedtime with 50mg desvenlafaxine. meloxicam (MOBIC) 7.5 mg tablet Take 2 tablets by mouth once daily. Calcium-Cholecalciferol, D3, (CALCIUM 500 + D) 500 mg(1,250mg) -400 unit per tablet Take 2 tablets by mouth once daily. MEDICATION, NON-DATABASE PRESTIQUE calcium carbonate-vitamin D3 1,000 mg(2,500 mg)-800 unit tab Take 1 tablet by mouth once daily. ferrous sulfate 325 mg (65 mg iron) tablet Take 1 tablet by mouth twice daily with meals. docusate sodium (COLACE) 100 mg capsule Take 1 capsule by mouth once daily. No family history on file. Social History Tobacco Use - Smoking status: Never Smoker - Smokeless tobacco: Never Used Substance Use Topics - Alcohol use: Not on file - Drug use: Not on file Review of Systems Constitutional: Negative for chills, diaphoresis, fatigue and fever. HENT: Positive for ear pain. Negative for congestion, dental problem, drooling, ear discharge, rhinorrhea, sinus pressure, sinus pain and sore throat. Eyes: Negative for photophobia, pain, discharge, redness, itching and visual disturbance. Respiratory: Negative for apnea, cough, choking and chest tightness. Cardiovascular: Negative for chest pain, palpitations and leg swelling. Gastrointestinal: Negative for abdominal pain, anorexia, change in bowel habit, nausea and vomiting. Musculoskeletal: Negative for arthralgias, joint swelling, myalgias and neck pain. Skin: Negative for (more content not included)... Normal [facility] CNOVon 11-02-2020 CNOV Office Visit (UCWSTR ) -------- JERZY,FLORENTINO Hickey ([id number]) 1995 M Date Time Provider Department 11/02/20 2:15 PM CAROLIN HOPE [facility] During your visit today, we recorded the following information about you: Temperature Pulse Respiration Blood pressure 97.5 degrees 90/minute 18/minute 122/72 Weight 99.8 kg Carolin Hope APRN.CNP 11/02/2020 2:37 PM Signed SUBJECTIVE Florentino Hickey Jerzy is a 25 year old male who presents with 1 day of symptoms that are stable. Symptoms include: Fever (?100.4F): No or Chills: No Cough: Yes Shortness of breath: No or Difficulty breathing: No Fatigue: Yes Muscle aches: No Headache: Yes New loss of smell or taste: No Sore throat: No Nasal congestion: No or Rhinorrhea: Yes Nausea: No or Vomiting: No Diarrhea: No High risk category assessment No high risk factors Exposures: Sick contacts? Yes Family or close contacts with confirmed/probable COVID-19 in last 14 days? 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 He has never used smokeless tobacco. BP 122/72 Pulse 90 Temp 36.4 ?C (97.5 ?F) Resp 18 Wt 99.8 kg (220 lb) SpO2 99% BMI 28.25 kg/m? PAST MEDICAL HISTORY Diagnosis Date - Allergic rhinitis - Anxiety - Selective mutism PAST SURGICAL HISTORY Procedure Laterality Date - REDUCE TESTES TORSION 2014 - REM LESIO TRUNK,ARM,LEG 1.1 -2.0CM Left 04/15/15 Exc. folliculitis suprpubic - TONSILLECTOMY HX 99 ALLERGIES Augmentin [Amoxicillin-Pot Clavulanate] and Lactose MEDICATIONS albuterol HFA (PROVENTIL HFA, VENTOLIN HFA) 90 mcg/actuation inhaler Inhale 2 puffs every 4 hours as needed for uncontrolled asthma symptoms ergocalciferol 50,000 unit capsule (VITAMIN D2, DRISDOL) Take 1 capsule by mouth one time a week. meloxicam (MOBIC) 7.5 mg tablet Take 2 tablets by mouth once daily. calcium carbonate-vitamin D3 1,000 mg(2,500 mg)-800 unit tab Take 1 tablet by mouth once daily. acetaminophen (TYLENOL) 325 mg tablet Take 650 mg by mouth every 6 hours as needed. topiramate (TOPAMAX) 200 mg tablet Take 400 mg by mouth daily at bedtime. desvenlafaxine ER (PRISTIQ) 100 mg 24 hr tablet Take 200 mg by mouth daily at bedtime. montelukast (SINGULAIR) 10 mg tablet Take 10 mg by mouth daily at bedtime. loratadine (CLARITIN) 10 mg tablet Take 10 mg by mouth once daily. desvenlafaxine ER (PRISTIQ) 100 mg 24 hr tablet Take 1 tablet by mouth at bedtime. Take with 50 mg desvenlafaxine desvenlafaxine ER (PRISTIQ) 50 mg 24 hr tablet Take 1 tablet by mouth at bedtime. Take with 100 mg desvenlafaxine topiramate (TOPAMAX) 200 mg tablet Take 3 tablets by mouth at bedtime desvenlafaxine ER (PRISTIQ) 100 mg 24 hr tablet Take 1 tablet by mouth at bedtime with 50 mg desvenlafaxine desvenlafaxine ER (PRISTIQ) 50 mg 24 hr tablet Take 1 tablet by mouth at bedtime with 100 mg desvenlafaxine topiramate (TOPAMAX) 200 mg tablet Take 3 tablets by mouth at bedtime montelukast (SINGULAIR) 10 mg tablet Take 1 tablet (10 mg) by mouth daily in the evening desvenlafaxine ER (PRISTIQ) 50 mg 24 hr tablet Take 1 tablet by mouth daily at bedtime with 100mg desvenlafaxine. desvenlafaxine ER (PRISTIQ) 100 mg 24 hr tablet Take 1 tablet by mouth daily at bedtime with 50mg desvenlafaxine. Calcium-Cholecalciferol, D3, (CALCIUM 500 + D) 500 mg(1,250mg) -400 unit per tablet Take 2 tablets by mouth once daily. MEDICATION, NON-DATABASE PRESTIQUE ferrous sulfate 325 mg (65 mg iron) tablet Take 1 tablet by mouth twice daily with meals. docusate sodium (COLACE) 100 mg capsule Take 1 capsule by mouth once daily. No family history on file. Social History Tobacco Use - Smoking status: Never Smoker - Smokeless tobacco: Never Used Substance Use Topics - Alcohol use: Not on file - Drug use: Not on file OBJECTIVE Physical Exam Vitals and nursing note reviewed. HENT: Mouth/Throat: Pharynx: Uvula midline. No oropharyngeal exudate or posterior oropharyngeal erythema. Cardiovascular: Rate and Rhythm: Normal rate and regular rhythm. Heart sounds: Normal heart sounds. Pulmonary: Effort: Pulmonary effort is normal. No respiratory distress. Breath sounds: Normal breath sounds. No wheezing or rales. Skin: General: Skin is warm and dry. Findings: No erythema or rash. Neurological: Mental Status: He is alert. ASSESSMENT/PLAN ASSESSMENT/PLAN: 1. Suspected COVID-19 virus infection - ICD9: V01.79, ICD10: Z20.822 - 2019 CORONAVIRUS 2. Exposure to COVID-19 virus - ICD9: V01.79, ICD10: Z20.822 - 2019 CORONAVIRUS - Follow-up with your PCP in 3-5 days if symptoms have not improved or sooner if symptoms worsen - Discussed red flags and need for immediate medical evaluation if any occur. - Discussed supportive care treatment with fluids, rest and analgesia. - Discussed expected course of illness Carolin Hope APRN.LACE BURN OUT TENDER - (more content not included)... Normal [facility] Coronavirus 2019on 09-20-202 1 SARS-CoV-2 (COVID-19) RNA BON+probe Ql (Unsp spec) UPPER RESPIRATORY TRACT SWAB Normal [facility] Comment on above: Performed By: #### C OVID #### [place] [address] SARS-CoV-2 (COVID-19) RNA BON+probe Ql (Unsp spec) Negative for COVID19 (SARS CoV2) by RT-PCR or equivalent method. Normal Negative for COVID19 (SARS CoV2) by RT-PCR or equivalent method. [facility] Comment on above: Result Comment: This test was developed and its performance characteristics determined by [facility]'s [facility] [place]. This test has been authorized by FDA under an Emergency Use Authorization (EUA). This test has been validated in accordance with the FDA's Guidance Document Policy for Diagnostics Testing in Laboratories Certified to Perform High Complexity Testing under CLIA prior to Emergency use Authorization for Coronavirus Disease 2019 during the Public Health Emergency issued on April 13, 2019. Test performed by [facility], [facility] [place], [address] [place] [address]. Performed By: #### C OVID #### [place] [address] OBSOLETEon 07-02-2020 OBSOLETE Refill (ORTHIN) -------- FLORENTINO MYERS ([id number]) 1995 Date Time Provider Department 07/02/20 CHIQUITA BUTLER During your visit today, we recorded the following information about you: Allergies As of Date: 07/02/2020 Noted Allergy Reaction AUGMENTIN (AMOXICILLIN-POT CLAVUL*04/02/2015 2 - Rash Comments: recvd ancef in OR without reaction LACTOSE 05/15/2015 6 - Diarrhea Date Reviewed: 01/16/2020 Reviewed by: Yulia Foster - Fully Assessed Reason for Visit: Refill Request [94] Prescriptions as of 07/02/2020 Sig: DESVENLAFAXINE SUCCINATE ER 1* Take 1 tablet by mouth at bed* DESVENLAFAXINE SUCCINATE ER 5* Take 1 tablet by mouth at bed* TOPIRAMATE 200 MG TABLET Take 3 tablets by mouth at be* DESVENLAFAXINE SUCCINATE ER 1* Take 1 tablet by mouth at bed* DESVENLAFAXINE SUCCINATE ER 5* Take 1 tablet by mouth at bed* TOPIRAMATE 200 MG TABLET Take 3 tablets by mouth at be* ALBUTEROL SULFATE HFA 90 MCG/* Inhale 2 puffs every 4 hours * MONTELUKAST 10 MG TABLET Take 1 tablet (10 mg) by mout* ERGOCALCIFEROL (VITAMIN D2) 1* Take 1 capsule by mouth one t* DESVENLAFAXINE SUCCINATE ER 5* Take 1 tablet by mouth daily * DESVENLAFAXINE SUCCINATE ER 1* Take 1 tablet by mouth daily * MELOXICAM 7.5 MG TABLET Take 2 tablets by mouth once * CALCIUM CARBONATE 500 MG (1,2* Take 2 tablets by mouth once * MEDICATION, NON-DATABASE PRESTIQUE CALCIUM CARBONATE-VITAMIN D3 * Take 1 tablet by mouth once d* ACETAMINOPHEN 325 MG TABLET Take 650 mg by mouth every 6 * FERROUS SULFATE 325 MG (65 MG* Take 1 tablet by mouth twice * DOCUSATE SODIUM 100 MG CAPSULE Take 1 capsule by mouth once * TOPIRAMATE 200 MG TABLET Take 400 mg by mouth daily at* DESVENLAFAXINE SUCCINATE ER 1* Take 200 mg by mouth daily at* MONTELUKAST 10 MG TABLET Take 10 mg by mouth daily at * LORATADINE 10 MG TABLET Take 10 mg by mouth once jr* Problem List As Of Date 07/02/2020 Noted Resolved Scoliosis (and kyphoscoliosis), idiopathic [M41*08/28/2012 Back pain [M54.9] 08/28/2012 Folliculitis [L73.9] 04/02/2015 Kyphosis [M40.209] 05/15/2015 S/P spinal fusion [Z98.1] 05/15/2015 Acute post-operative pain [G89.18] 05/15/2015 Encounter Status:Closed by YANDEL JOHNSON on 07/10/20 Normal [facility] Calcium, Totalon 11-13-2018 Calcium [Mass/Vol] 9.1 mg/dL Normal 8.5-10.2 [facility] Comment on above: Performed By: #### C A, VITD #### [facility] Routine Lab [address] [place], [place] [address] Vitamin D 25 Hydroxyon 11-13 Vitamin D 25 Hydroxy 42.1 ng/mL Normal 31.0-80.0 [facility] Comment on above: Performed By: #### C A, VITD #### [facility] Routine Lab [address] [place], [place] [address] Vital Signs Date Time Vital Sign Value Performing Clinician Faci lity 08-11-2023 18:49-0400 Diastolic Blood Pressure Non-Invasive 84 mm[Hg] DONNY FIELD MD [facility] 08-11-2023 18:49-0400 Heart rate 75 /min DONNY FIELD MD [facility] 08-11-2023 18:49-0400 Respiratory rate 16 /min ODNNY FIELD MD [facility] 08-11-2023 18:49-0400 Systolic Blood Pressure Non-Invasive 135 mm[Hg] DONNY FIELD MD [facility] 08-11-2023 15:55-0400 Body temperature 96.98 [degF] DONNY FIELD MD [facility] 08-11-2023 15:55-0400 Diastolic Blood Pressure Non-Invasive 90 mm[Hg] DONNY FIELD MD [facility] 08-11-2023 15:55-0400 Heart rate 87 /min DONNY FIELD MD [facility] 08-11-2023 15:55-0400 Respiratory rate 16 /min DONNY FIELD MD [facility] 08-11-2023 15:55-0400 Systolic Blood Pressure Non-Invasive 146 mm[Hg] DONNY FIELD MD [facility] 08-11-2023 15:35-0400 Diastolic Blood Pressure Non-Invasive 77 mm[Hg] DONNY FIELD MD [facility] 08-11-2023 15:35-0400 Heart rate 67 /min DONNY FIELD MD [facility] 08-11-2023 15:35-0400 Mean blood pressure 91 mm[Hg] DONNY FIELD MD [facility] 08-11-2023 15:35-0400 Respiratory rate 16 /min DONNY FIELD MD [facility] 08-11-2023 15:35-0400 Systolic Blood Pressure Non-Invasive 128 mm[Hg] DONNY FIELD MD [facility] 08-11-2023 15:21-0400 Heart rate 92 /min DONNY FIELD MD [facility] 08-11-2023 15:21-0400 Mean blood pressure 98 mm[Hg] DONNY FIELD MD [facility] 08-11-2023 15:05-0400 Mean blood pressure 85 mm[Hg] DONNY FIELD MD [facility] 08-11-2023 14:20-0400 Body temperature 98.42 [degF] DONNY FIELD MD [facility] 08-11-2023 14:15-0400 Respiratory Rate - Anes 11 br/min DONNY FIELD MD [facility] 08-11-2023 14:10-0400 Respiratory Rate - Anes 9 br/min DONNY FIELD MD [facility] 08-11-2023 14:05-0400 Respiratory Rate - Anes 12 br/min DONNY FIELD MD [facility] 08-11-2023 14:00-0400 Body temperature 97.57 [degF] DONNY FIELD MD [facility] 08-11-2023 13:55-0400 Body temperature 97.59 [degF] DONNY FIELD MD [facility] 08-11-2023 13:50-0400 Body temperature 97.59 [degF] DONNY FIELD MD [address] [place] [address] 08-11-2023 11:10-0400 Body height 190.5 cm DONNY FIELD MD [address] [place] [address] 08-11-2023 11:10-0400 Body weight 112.8 kg DONNY FIELD MD [facility] 08-11-2023 11:02-0400 Body temperature 97.88 [degF] DONNY FIELD MD [facility] 08-11-2023 11:02-0400 Heart rate 80 /min DONNY FIELD MD [facility] 08-02-2023 09:21-0400 Blood Pressure Cuff Size DONNY FIELD MD [facility] 08-02-2023 09:21-0400 Blood Pressure Location DONNY FIELD MD [facility] 08-02-2023 09:21-0400 Blood Pressure Method DONNY FIELD MD [facility] 08-02-2023 09:21-0400 Body height 182.9 cm DONNY FIELD MD [facility] 08-02-2023 09:21-0400 Body temperature 98.96 [degF] DONNY FIELD MD [facility] 08-02-2023 09:21-0400 Body weight 114.8 kg DONNY FIELD MD [facility] 08-02-2023 09:21-0400 Diastolic Blood Pressure Non-Invasive 87 mm[Hg] DONNY FIELD MD [facility] 08-02-2023 09:21-0400 Heart rate 80 /min DONNY FIELD MD [facility] 08-02-2023 09:21-0400 Systolic Blood Pressure Non-Invasive 123 mm[Hg] DONNY FIELD MD [facility] 07-09-2023 21:41-0400 Diastolic Blood Pressure Non-Invasive 88 mm[Hg] NERI KELSEY MD [facility] 07-09-2023 21:41-0400 Heart rate 60 /min NERI KELSEY MD [facility] 07-09-2023 21:41-0400 Reason For Taking VItal Signs NERI KELSEY MD [facility] 07-09-2023 21:41-0400 Respiratory rate 16 /min NERI KELSEY MD [facility] 07-09-2023 21:41-0400 Systolic Blood Pressure Non-Invasive 138 mm[Hg] NERI KELSEY MD [facility] 07-09-2023 20:37-0400 Body temperature 98.6 [degF] NERI KELSEY MD [facility] 07-09-2023 20:37-0400 Diastolic Blood Pressure Non-Invasive 76 mm[Hg] NERI KELSEY MD [facility] 07-09-2023 20:37-0400 Heart rate 80 /min NERI KELSEY MD [facility] 07-09-2023 20:37-0400 Respiratory rate 18 /min NERI KELSEY MD [facility] 07-09-2023 20:37-0400 Systolic Blood Pressure Non-Invasive 124 mm[Hg] NERI KELSEY MD [facility] 07-07-2023 19:14-0400 Diastolic blood pressure 100 mm[Hg] TA ARAGON MD [facility] 07-07-2023 19:14-0400 Heart rate 82 /min TA ARAGON MD [facility] 07-07-2023 19:14-0400 Respiratory rate 16 /min TA ARAGON MD [facility] 07-07-2023 19:14-0400 Systolic blood pressure 151 mm[Hg] TA ARAGON MD [facility] 07-07-2023 15:52-0400 Body height 188 cm TA ARAGON MD [facility] 07-07-2023 15:52-0400 Body temperature 97.88 [degF] TA ARAGON MD [facility] 07-07-2023 15:52-0400 Body weight 113.6 kg TA ARAGON MD [facility] 07-07-2023 15:52-0400 Diastolic Blood Pressure Non-Invasive 107 mm[Hg] TA ARAGON MD [facility] 07-07-2023 15:52-0400 Heart rate 100 /min TA ARAGON MD [facility] 07-07-2023 15:52-0400 Respiratory rate 20 /min TA ARAGON MD [facility] 07-07-2023 15:52-0400 Systolic Blood Pressure Non-Invasive 156 mm[Hg] TA ARAGON MD [facility] 05-15-2023 22:47-0400 Diastolic Blood Pressure Non-Invasive 68 mm[Hg] DR TUNDE COFFEY MD [facility] 05-15-2023 22:47-0400 Heart rate 65 /min DR TUNDE COFFEY MD [facility] 05-15-2023 22:47-0400 Respiratory rate 18 /min DR TUNDE COFFEY MD [facility] 05-15-2023 22:47-0400 Systolic Blood Pressure Non-Invasive 127 mm[Hg] DR TUNDE COFFEY MD [facility] 05-15-2023 20:45-0400 Diastolic Blood Pressure Non-Invasive 72 mm[Hg] DR TUNDE COFFEY MD [facility] 05-15-2023 20:45-0400 Heart rate 62 /min DR TUNDE COFFEY MD [facility] 05-15-2023 20:45-0400 Respiratory rate 18 /min DR TUNDE COFFEY MD [facility] 05-15-2023 20:45-0400 Systolic Blood Pressure Non-Invasive 130 mm[Hg] DR TUNDE COFFEY MD [facility] 05-15-2023 19:28-0400 Body height [address] TUNDE COFFEY MD [facility] 05-15-2023 19:28-0400 Body temperature 99.5 [degF] DR TUNDE COFFEY MD [facility] 05-15-2023 19:28-0400 Body weight 115.[address] TUNDE COFFEY MD [facility] 05-15-2023 19:28-0400 Diastolic Blood Pressure Non-Invasive 108 mm[Hg] DR TUNDE COFFEY MD [facility] 05-15-2023 19:28-0400 Heart rate 96 /min DR TUNDE COFFEY MD [facility] 05-15-2023 19:28-0400 Respiratory rate 18 /min DR TUNDE COFFEY MD [facility] 05-15-2023 19:28-0400 Systolic Blood Pressure Non-Invasive 147 mm[Hg] DR TUNDE COFFEY MD [facility] 03-21-2022 09:20-0500 Heart rate 80 /min DR BUDDY RINCON MD [facility] 03-21-2022 09:20-0500 Respiratory rate 20 /min DR BUDDY RINCON MD [facility] 03-21-2022 09:15-0500 Diastolic Blood Pressure Non-Invasive [address] BUDDY RINCON MD [facility] 03-21-2022 09:15-0500 Heart rate 70 /min DR BUDDY RINCON MD [facility] 03-21-2022 09:15-0500 Respiratory rate 15 /min DR BUDDY RINCON MD [facility] 03-21-2022 09:15-0500 Systolic Blood Pressure Non-Invasive [address] BUDDY RINCON MD [facility] 03-21-2022 09:11-0500 Diastolic Blood Pressure Non-Invasive [address] BUDDY RINCON MD [facility] 03-21-2022 09:11-0500 Heart rate 77 /min DR BUDDY RINCON MD [facility] 03-21-2022 09:11-0500 Respiratory rate 16 /min DR BUDDY RINCON MD [facility] 03-21-2022 09:11-0500 Systolic Blood Pressure Non-Invasive [address] BUDDY RINCON MD [facility] 03-21-2022 09:06-0500 Diastolic Blood Pressure Non-Invasive [address] BUDDY RINCON MD [facility] 03-21-2022 09:06-0500 Systolic Blood Pressure Non-Invasive [address] BUDDY RINCON MD [facility] 03-21-2022 09:00-0500 Respiratory Rate - Anes 16 br/min DR BUDDY RINCON MD [facility] 03-21-2022 08:55-0500 Respiratory Rate - Anes 20 br/min DR BUDDY RINCON MD [facility] 03-21-2022 07:35-05[address] Blood Pressure Cuff Size DR BUDDY RINCON MD [facility] 03-21-2022 07:35-[address] BUDDY RINCON MD [facility] 03-21-2022 07:35-0500 Body height 190.[address] BUDDY RINCON MD [facility] 03-21-2022 07:35-0500 Body temperature 96.8 [degF] DR BUDDY RINCON MD [facility] 03-21-2022 07:35-0500 Body weight 97.[address] BUDDY RINCON MD [facility] 03-21-2022 07:35-0500 Body weight 26.92 kg/m2 DR BUDDY RINCON MD [facility] 03-21-2022 07:35-0500 Heart rate 88 /min DR BUDDY RINCON MD [facility] Encounters Encounter Date Encounter Type Care Provider Facility Start: 11-14-2024 End: 11-14-2024 ambulatory Talisha Leija Facility:[facility] Start: 04-07-2024 End: 04-08-2024 ambulatory Jillian Malone NP Facility:[facility] Start: 08-11-2023 End: 08-11-2023 ambulatory DONNY FIELD MD Facility:A Start: 08-11-2023 End: 08-11-2023 SAME DAY STAY DONNY FIELD MD [facility] Start: 08-02-2023 End: 08-02-2023 Admission to establishment DONNY FIELD MD [facility] Start: 08-02-2023 End: 08-02-2023 ambulatory DONNY FIELD MD Facility:A Start: 07-21-2023 End: 07-21-2023 ambulatory TALISHA LEIJA MD Facility:A Start: 07-09-2023 End: 07-09-2023 Emergency department patient visit NERI KELSEY MD Facility:B Start: 07-09-2023 End: 07-09-2023 Emergency department patient visit NERI KELSEY MD [facility] Start: 07-07-2023 End: 07-07-2023 Emergency department patient visit TA ARAGON MD Facility:B Start: 07-07-2023 End: 07-07-2023 Emergency department patient visit TA ARAGON MD [facility] Start: 07-03-2023 ambulatory JILLIAN KRAMER MD [facility] ty:B Start: 05-15-2023 End: 05-16-2023 Emergency department patient visit TALISHA LEIJA MD Facility:B Start: 05-15-2023 End: 05-15-2023 Emergency department patient visit DR TUNDE COFFEY MD [facility] Start: 11-08-2022 End: 11-08-2022 ambulatory [facility] Work Phone: Start: 11-08-2022 End: 11-08-2022 Patient encounter procedure [facility] Start: 09-26-2022 End: 09-26-2022 ambulatory BUDDY RINCON Facility:B Start: 09-26-2022 End: 09-26-[address] BUDDY RINCON MD [facility] Start: 03-21-2022 End: 03-21-[address] BUDDY RINCON MD [facility] Start: 09-30-2021 End: 09-30-2021 ambulatory [facility] Work Phone: Start: 09-30-2021 End: 09-30-2021 Patient encounter procedure [facility]-Cat Scan, [facility] Start: 09-22-2021 End: 09-22-2021 Patient encounter procedure [facility]-Laboratory, Specimen Start: 09-21-2021 End: 09-21-2021 Patient encounter procedure [facility] Start: 07-07-2021 End: 07-07-2021 Patient encounter procedure [facility] Procedures Date Procedure Procedure Detail Performing Clinician Start: 09-30-2021 Computed tomography of abdomen and pelvis with contrast Esophagogastroduodenoscopy Edward FIELD MD Structure of vertebr al column (body structure) DR BUDDY RINCON MD Comment on above: FUSION Structure of vertebr al column (body structure) DONNY FIELD MD Comment on above: FUSION PT STATES MID TO UPP ER Tonsillectomy DONNY FIELD MD Immunizations Immunization Date Immunization Notes Care Provider Fa cility 11-03-2022 tetanus toxoid, redu kath diphtheria toxoid, and acellular pertussis vaccine, adsorbed DONNY FIELD MD [facility] 07-02-2020 SARS-CoV-2 (COVID-19 ) mRNA-1273 vaccine DONNY FIELD MD [facility] 06-04-2020 SARS-CoV-2 (COVID-19 ) mRNA-1273 vaccine DONNY FIELD MD [facility] 11-13-2013 Influenza virus vaccine [facility] 12-15-2007 Pneumococcal Vaccine [facility] Work Phone: 12-15-2007 pneumococcal vaccine , unspecified formulation [facility] 06-08-2000 measles/mumps/rubell a virus vaccine DONNY FIELD MD [facility] 06-08-2000 poliovirus vaccine, inactivated DONNY FIELD MD [facility] Payers Date Payer Category Payer Self-pay [id number] 2022 Unknown [id number] 2013 Unknown [facility] [id number] 1995 Unknown [id number] 2.16.8 [id number] 1995 Unknown [id number] 2.16.8 [id number] 1995 Unknown [id number] 2.16.8 [id number] 1995 Unknown [id number] 2.16.8 [id number] 1995 Unknown [id number] 2.16.8 [id number] 1995 Unknown [id number] 2.16.8 [id number] 1995 Unknown [id number] 2.16.8 [id number] 1995 Unknown [id number] 2.16.8 [id number] Unknown [id number] Unknown [id number] Unknown [id number] 2.16.8 [id number] Unknown [id number] 2.16.8 [id number] Unknown [id number] 2.16.8 [id number] Social History Date Type Detail Facility Start: 08-23-2020 [facility] Start: 1995 Sex Assigned At Male W [facility] Tobacco smoking status [facility] Sex Assigned At Female [facility] Start: 07-09-2023 End: 07-25-2023 Tobacco smoking status Never smoked tobacco (finding) [facility] Functional Status Date Assessment Result Facility 08-11-2023 Functional Status Up ad lyn, Up to bathroom [facility] 08-11-2023 Functional Status ice on [facility] 08-11-2023 Functional Status Maintained [facility] 08-02-2023 Functional Status Sensory Deficits None A [facility] 07-09-2023 Functional Status ID band on, Allergy Band on, Call device within reach, Bed in low position, Wheels locked, Bedside Cart Locked, Visitor at bedside, Safety level maintained [facility] 07-07-2023 Functional Status Independent [facility] 07-07-2023 Functional Status [facility] 07-07-2023 Functional Status Room check performed [facility] 05-15-2023 Functional Status Assistive Device None A [facility] 05-15-2023 Functional Status Standard Safet y ID band on, Allergy Band on, Call device within reach, Bed in low position, Wheels locked, Upper/Half-Length side-rails up, Bedside Cart Locked, Visitor at bedside, Safety level maintained [facility] 03-21-2022 Functional Status Sleeping quiet ly with easy respirations [facility] 03-21-2022 Functional Status Maintained [facility] Mental Status Date Assessment Result Facility 08-11-2023 Mental Status Orientation Oriented x [address] [facility] 08-11-2023 Mental Status [facility] 07-09-2023 Mental Status Oriented x 4 [facility] 07-07-2023 Mental Status Orientation Oriented x 4 [facility] 07-07-2023 Mental Status [facility] 05-15-2023 Mental Status Orientation Oriented x 4 [facility] 05-15-2023 Mental Status [facility] 03-21-2022 Mental Status Orientation Oriented x 4 [facility] Clinical Notes 11-02-2020 to 08-11-2023 RadiologyRadiology Note Date & Type Note Facility 08-11-2023 Hospital Discharge instructions Patient Education 08/11/2023 16:08:01 Laparoscopic Cholecystectomy, Care After Laparoscopic Cholecystectomy, Care After This sheet gives you information about how to care for yourself after your procedure. Your health care provider may also give you more specific instructions. If you have problems or questions, contact your health care provider. What can I expect after the procedure? After the procedure, it is common to have: Pain at your incision sites. You will be given medicines to control this pain. Mild nausea or vomiting. Bloating and possible shoulder pain from the air-like gas that was used during the procedure. Follow these instructions at home: Incision care Follow instructions from your health care provider about how to take care of your incisions. Make sure you: ?Wash your hands with soap and water before you change your bandage (dressing). If soap and water are not available, use hand sql database programmer. ?Change your dressing as told by your health care provider. ?Leave stitches (sutures), skin glue, or adhesive strips in place. These skin closures may need to be in place for 2 weeks or longer. If adhesive strip edges start to loosen and curl up, you may trim the loose edges. Do not remove adhesive strips completely unless your health care provider tells you to do that. Do not take baths, swim, or use a hot tub until your health care provider approves. Ask your health care provider if you can take showers. You may only be allowed to take sponge baths for bathing. Check your incision area every day for signs of infection. Check for: ?More redness, swelling, or pain. ?More fluid or blood. ?Warmth. ?Pus or a bad smell. Activity Do not drive or use heavy machinery while taking prescription pain medicine. Do not lift anything that is heavier than 10 lb (4.5 kg) until your health care provider approves. Do not play contact sports until your health care provider approves. Do not drive for 24 hours if you were given a medicine to help you relax (sedative). Rest as needed. Do not return to work or school until your health care provider approves. General instructions Take iedw-mdd-xxycygp and prescription medicines only as told by your health care provider. To prevent or treat constipation while you are taking prescription pain medicine, your health care provider may recommend that you: ?Drink enough fluid to keep your urine clear or pale yellow. ?Take yeuc-xus-qpdlclg or prescription medicines. ?Eat foods that are high in fiber, such as fresh fruits and vegetables, whole grains, and beans. ?Limit foods that are high in fat and processed sugars, such as fried and sweet foods. Contact a health care provider if: You develop a rash. You have more redness, swelling, or pain around your incisions. You have more fluid or blood coming from your incisions. Your incisions feel warm to the touch. You have pus or a bad smell coming from your incisions. You have a fever. One or more of your incisions breaks open. Get help right away if: You have trouble breathing. You have chest pain. You have increasing pain in your shoulders. You faint or feel dizzy when you stand. You have severe pain in your abdomen. You have nausea or vomiting that lasts for more than one day. You have leg pain. This information is not intended to replace advice given to you by your health care provider. Make sure you discuss any questions you have with your health care provider. Document Released: 01/30/2006 Document Revised: 01/12/2018 Document Reviewed: 07/18/2016 [employer] Patient Education 2020 [employer]. Follow Up Care 07/27/2023 13:55:40 With:DONNY FIELD MD, Surgery Address: [address] [place] [address]- [phone] When: Unknown Comments:Schedule appointment as soon as possible [facility] 08-11-2023 Anesthesiology Consult note Patient: GUY MYERS Age: 28 years Sex: Male : 1995 Associated Diagnoses: None Author: PRAVEEN CERDA MD Postoperative Information Post Operative Info: Post op day: Post Anesthesia Care Unit. Patient location: PACU. Assessment Postanesthesia assessment Vitals: Vital signs from flowsheet : Vital Signs 08/11/2023 15:55 EDT Temperature Temporal Artery 36.1 DegC Heart Rate Monitored 87 bpm Respiratory Rate 16 br/min Systolic Blood Pressure Non-Invasive 146 mmHg HI Diastolic Blood Pressure Non-Invasive 90 mmHg HI 08/11/2023 15:35 EDT Heart Rate Monitored 67 bpm Respiratory Rate 16 br/min Systolic Blood Pressure Non-Invasive 128 mmHg Diastolic Blood Pressure Non-Invasive 77 mmHg Mean Arterial Pressure (NBP) 91 mmHg 08/11/2023 15:21 EDT Heart Rate Monitored 92 bpm Respiratory Rate 16 br/min Systolic Blood Pressure Non-Invasive 130 mmHg Diastolic Blood Pressure Non-Invasive 84 mmHg Mean Arterial Pressure (NBP) 98 mmHg 08/11/2023 15:05 EDT Heart Rate Monitored 69 bpm Respiratory Rate 18 br/min Systolic Blood Pressure Non-Invasive 133 mmHg Diastolic Blood Pressure Non-Invasive 68 mmHg Mean Arterial Pressure (NBP) 85 mmHg 08/11/2023 14:50 EDT Heart Rate Monitored 80 bpm Respiratory Rate 16 br/min Systolic Blood Pressure Non-Invasive 134 mmHg Diastolic Blood Pressure Non-Invasive 73 mmHg Mean Arterial Pressure (NBP) 91 mmHg 08/11/2023 14:35 EDT Heart Rate Monitored 109 bpm HI Respiratory Rate 16 br/min Systolic Blood Pressure Non-Invasive 158 mmHg HI Diastolic Blood Pressure Non-Invasive 91 mmHg HI 08/11/2023 14:20 EDT Temperature Temporal Artery 36.9 DegC Heart Rate Monitored 91 bpm Respiratory Rate 16 br/min Systolic Blood Pressure Non-Invasive 155 mmHg HI Diastolic Blood Pressure Non-Invasive 99 mmHg HI Mean Arterial Pressure (NBP) 118 mmHg 08/11/2023 14:15 EDT Heart Rate Monitored 120 bpm bpm Respiratory Rate - Anes 11 br/min br/min 08/11/2023 14:14 EDT Systolic Blood Pressure Non-Invasive 145 mmHg mmHg Diastolic Blood Pressure Non-Invasive 129 mmHg mmHg 08/11/2023 14:11 EDT Systolic Blood Pressure Non-Invasive 166 mmHg mmHg Diastolic Blood Pressure Non-Invasive 95 mmHg mmHg 08/11/2023 14:10 EDT Heart Rate Monitored 95 bpm bpm Respiratory Rate - Anes 9 br/min br/min 08/11/2023 14:08 EDT Systolic Blood Pressure Non-Invasive 144 mmHg mmHg Diastolic Blood Pressure Non-Invasive 73 mmHg mmHg 08/11/2023 14:05 EDT Heart Rate Monitored 83 bpm bpm Respiratory Rate - Anes 12 br/min br/min Systolic Blood Pressure Non-Invasive 136 mmHg mmHg Diastolic Blood Pressure Non-Invasive 76 mmHg mmHg 08/11/2023 14:02 EDT Systolic Blood Pressure Non-Invasive 120 mmHg mmHg Diastolic Blood Pressure Non-Invasive 77 mmHg mmHg 08/11/2023 14:00 EDT Temperature (Route Not Specified) 36.43 DegC DegC Heart Rate Monitored 85 bpm bpm Respiratory Rate - Anes 12 br/min br/min 08/11/2023 13:59 EDT Systolic Blood Pressure Non-Invasive 103 mmHg mmHg Diastolic Blood Pressure Non-Invasive 85 mmHg mmHg 08/11/2023 13:56 EDT Systolic Blood Pressure Non-Invasive 107 mmHg mmHg Diastolic Blood Pressure Non-Invasive 81 mmHg mmHg 08/11/2023 13:55 EDT Temperature (Route Not Specified) 36.44 DegC DegC Heart Rate Monitored 99 bpm bpm Respiratory Rate - Anes 12 br/min br/min 08/11/2023 13:53 EDT Systolic Blood Pressure Non-Invasive 129 mmHg mmHg Diastolic Blood Pressure Non-Invasive 79 mmHg mmHg 08/11/2023 13:50 EDT Temperature (Route Not Specified) 36.44 DegC DegC Heart Rate Monitored 96 bpm bpm Respiratory Rate - Anes 12 br/min br/min Systolic Blood Pressure Non-Invasive 128 mmHg mmHg Diastolic Blood Pressure Non-Invasive 82 mmHg mmHg 08/11/2023 13:47 EDT Systolic Blood Pressure Non-Invasive 127 mmHg mmHg Diastolic Blood Pressure Non-Invasive 85 mmHg mmHg 08/11/2023 13:45 EDT Temperature (Route Not Specified) 36.38 DegC DegC Heart Rate Monitored 102 bpm bpm Respiratory Rate - Anes 12 br/min br/min 08/11/2023 13:44 EDT Systolic Blood Pressure Non-Invasive 112 mmHg mmHg Diastolic Blood Pressure Non-Invasive 77 mmHg mmHg 08/11/2023 13:41 EDT Systolic Blood Pressure Non-Invasive 121 mmHg mmHg Diastolic Blood Pressure Non-Invasive 86 mmHg mmHg 08/11/2023 13:40 EDT Temperature (Route Not Specified) 36.33 DegC DegC Heart Rate Monitored 104 bpm bpm Respiratory Rate - Anes 12 br/min br/min 08/11/2023 13:38 EDT Systolic Blood Pressure Non-Invasive 133 mmHg mmHg Diastolic Blood Pressure Non-Invasive 93 mmHg mmHg 08/11/2023 13:35 EDT Temperature (Route Not Specified) 36.29 DegC DegC Heart Rate Monitored 108 bpm bpm Respiratory Rate - Anes 12 br/min br/min Systolic Blood Pressure Non-Invasive 119 mmHg mmHg Diastolic Blood Pressure Non-Invasive 73 mmHg mmHg 08/11/2023 13:32 EDT Systolic Blood Pressure Non-Invasive 121 mmHg mmHg Diastolic Blood Pressure Non-Invasive 83 mmHg mmHg 08/11/2023 13:30 EDT Temperature (Route Not Specified) 36.24 DegC DegC Heart Rate Monitored 113 bpm bpm Respiratory Rate - Anes 10 br/min br/min 08/11/2023 13:29 EDT Systolic Blood Pressure Non-Invasive 125 mmHg mmHg Diastolic Blood Pressure Non-Invasive 91 mmHg mmHg 08/11/2023 13:26 EDT Systolic Blood Pressure Non-Invasive 112 mmHg mmHg Diastolic Blood Pressure Non-Invasive 74 mmHg mmHg 08/11/2023 13:25 EDT Temperature (Route Not Specified) 36.22 DegC DegC Heart Rate Monitored 103 bpm bpm Respiratory Rate - Anes 10 br/min br/min 08/11/2023 13:22 EDT Systolic Blood Pressure Non-Invasive 93 mmHg mmHg Diastolic Blood Pressure Non-Invasive 75 mmHg mmHg 08/11/2023 13:20 EDT Temperature (Route Not Specified) 36.22 DegC DegC Heart Rate Monitored 79 bpm bpm Respiratory Rate - Anes 10 br/min br/min 08/11/2023 13:19 EDT Systolic Blood Pressure Non-Invasive 105 mmHg mmHg Diastolic Blood Pressure Non-Invasive 59 mmHg mmHg 08/11/2023 13:16 EDT Systolic Blood Pressure Non-Invasive 107 mmHg mmHg Diastolic Blood Pressure Non-Invasive 56 mmHg mmHg 08/11/2023 13:15 EDT Temperature (Route Not Specified) 36.27 DegC DegC Heart Rate Monitored 87 bpm bpm Respiratory Rate - Anes 10 br/min br/min 08/11/2023 13:13 EDT Systolic Blood Pressure Non-Invasive 105 mmHg mmHg Diastolic Blood Pressure Non-Invasive 66 mmHg mmHg 08/11/2023 13:10 EDT Temperature (Route Not Specified) 36.37 DegC DegC Heart Rate Monitored 87 bpm bpm Respiratory Rate - Anes 10 br/min br/min Systolic Blood Pressure Non-Invasive 103 mmHg mmHg Diastolic Blood Pressure Non-Invasive 65 mmHg mmHg 08/11/2023 13:07 EDT Systolic Blood Pressure Non-Invasive 112 mmHg mmHg Diastolic Blood Pressure Non-Invasive 64 mmHg mmHg 08/11/2023 13:05 EDT Temperature (Route Not Specified) 36.54 DegC DegC Heart Rate Monitored 103 bpm bpm Respiratory Rate - Anes 10 br/min br/min 08/11/2023 13:04 EDT Systolic Blood Pressure Non-Invasive 104 mmHg mmHg Diastolic Blood Pressure Non-Invasive 80 mmHg mmHg 08/11/2023 13:01 EDT Systolic Blood Pressure Non-Invasive 124 mmHg mmHg Diastolic Blood Pressure Non-Invasive 83 mmHg mmHg 08/11/2023 13:00 EDT Heart Rate Monitored 113 bpm bpm Respiratory Rate - Anes 9 br/min br/min 08/11/2023 12:59 EDT Systolic Blood Pressure Non-Invasive 111 mmHg mmHg Diastolic Blood Pressure Non-Invasive 68 mmHg mmHg 08/11/2023 12:55 EDT Heart Rate Monitored 90 bpm bpm Respiratory Rate - Anes 0 br/min br/min Systolic Blood Pressure Non-Invasive 152 mmHg mmHg Diastolic Blood Pressure Non-Invasive 87 mmHg mmHg 08/11/2023 11:02 EDT Temperature Temporal Artery 36.6 DegC Peripheral Pulse Rate 80 bpm Respiratory Rate 18 br/min Systolic Blood Pressure Non-Invasive 130 mmHg Diastolic Blood Pressure Non-Invasive 86 mmHg , Oxygen Therapy : Oxygen Therapy & Oxygenation Information 08/11/2023 15:55 EDT Oxygen Therapy Room air Oxygen Saturation 96 % 08/11/2023 15:35 EDT Oxygen Therapy Room air Oxygen Saturation 96 % 08/11/2023 15:21 EDT Oxygen Therapy Room air Oxygen Saturation 95 % 08/11/2023 15:05 EDT Oxygen Therapy Room air Oxygen Saturation 95 % 08/11/2023 15:00 EDT Oxygen Therapy Room air Oxygen Saturation 100 % Oxygen Flow Rate o2 off 08/11/2023 14:50 EDT Oxygen Therapy Nasal cannula 0L-6L Oxygen Saturation 100 % Oxygen Flow Rate 3 08/11/2023 14:35 EDT Oxygen Therapy Nasal cannula 0L-6L Oxygen Saturation 98 % Oxygen Flow Rate 3 08/11/2023 14:27 EDT Oxygen Therapy Nasal cannula 0L-6L Oxygen Saturation 91 % LOW Oxygen Flow Rate 3 08/11/2023 14:20 EDT Oxygen Therapy Room air Oxygen Saturation 94 % 08/11/2023 14:15 EDT Oxygen Saturation 100 % % 08/11/2023 14:10 EDT Oxygen Saturation 99 % % 08/11/2023 14:05 EDT Oxygen Saturation 98 % % 08/11/2023 14:00 EDT Oxygen Saturation 98 % % 08/11/2023 13:55 EDT Oxygen Saturation 97 % % 08/11/2023 13:50 EDT Oxygen Saturation 97 % % 08/11/2023 13:45 EDT Oxygen Saturation 97 % % 08/11/2023 13:40 EDT Oxygen Saturation 97 % % 08/11/2023 13:35 EDT Oxygen Saturation 97 % % 08/11/2023 13:30 EDT Oxygen Saturation 97 % % 08/11/2023 13:25 EDT Oxygen Saturation 97 % % 08/11/2023 13:20 EDT Oxygen Saturation 98 % % 08/11/2023 13:15 EDT Oxygen Saturation 98 % % 08/11/2023 13:10 EDT Oxygen Saturation 98 % % 08/11/2023 13:05 EDT Oxygen Saturation 98 % % 08/11/2023 13:00 EDT Oxygen Saturation 99 % % 08/11/2023 12:55 EDT Oxygen Saturation 96 % % 08/11/2023 11:02 EDT Oxygen Therapy Room air Oxygen Saturation 96 % . Mental status: at preoperative baseline. Respiratory function: respirations are non-labored, Stable. Respiratory support: none. CV function: Stable. Cardiovascular support: none. Pain: Satisfactory. Nausea status: Satisfactory. Postoperative hydration status: within normal limits. Notes: Patient is sufficiently recovered from anesthesia to participate in the evaluation. No follow-up care needed. No complications post-anesthesia.. Digitally Signed by PRAVEEN CERDA MD on 08/11/2023 05:04 PM [facility] 08-11-2023 Summary of episode note Discharge Instructions Thank you for allowing [facility] to assist you with your healthcare needs. The following is important discharge information regarding your hospital visit. Your Care Team TALISHA LEIJA MD Your Diagnosis Acute post-operative pain What to do next Follow Up Appointments Follow Up with DONNY FIELD MD, Surgery Where:[address] [facility] [place] [address] [phone] Additional Information: Schedule appointment as soon as possible Allergies Augmentin rash Reglan lose control of jaw Medications Please ask your primary doctor or pharmacist before taking any other medication not listed, including over the counter drugs, herbal medications, vitamins and or supplements as they may interact with your home medications. What How Much When Why Instructions Last Dose New acetaminophen-hydrocodone ([place] 325- 5 mg oral tablet) 1 tab(s) by mouth Every 4 hours as needed for as needed for pain Acute post-operative pain Duration: 5 Days Pickup at [facility] Unchanged albuterol (Albuterol (Eqv-ProAir HFA) 90 mcg/ inh inhalation aerosol) 2 puff(s) by inhalation Every 6 hours as needed for as needed for wheezing Unchanged amitriptyline (amitriptyline 25 mg oral tablet) 1 tab(s) by mouth Daily at bedtime Unchanged desvenlafaxine (desvenlafaxine (as succinate) 25 mg oral tablet, extended release) 1 tab(s) by mouth Daily at bedtime Unchanged ergocalciferol (ergocalciferol 50,000 intl units (1.25 mg) oral capsule) 1 cap by mouth Daily at bedtime Unchanged lactulose (Constulose 10 g/ 15 mL oral liquid) 30 Milliliter by mouth Daily at bedtime Unchanged montelukast (montelukast 10 mg oral tablet) 1 tab(s) by mouth Daily at bedtime Unchanged mupirocin topical (mupirocin 2% topical ointment) 1 application Topical Two (2) times a day Bilateral intranasal application twice daily for 5 days prior to surgery &/ or as many days leading up to surgery as possible due to surgical urgency/ scheduling. Send to patient's preferred pharmacy. Unchanged pantoprazole (pantoprazole 40 mg oral enteric coated tablet) 2 tab(s) by mouth Daily at bedtime Unchanged promethazine (promethazine 12.5 mg oral tablet) 1 tab(s) by mouth Every 4 hours as needed for as needed for nausea/vomiting Unchanged topiramate (topiramate 50 mg oral tablet) 1 tab(s) by mouth Daily at bedtime Unchanged zolpidem (zolpidem 10 mg oral tablet) 1 tab(s) by mouth Daily at bedtime Pharmacy Information [facility]: [address] [place] [address] [phone] Please take this list to your next doctor s visit. Bring all medications you take, including over the counter medications, herbals and other supplements with you to your doctor s visit. Patients and families are reminded to discard old lists and to update any records with all medication providers or retail pharmacies. Education Materials Laparoscopic Cholecystectomy, Care After This sheet gives you information about how to care for yourself after your procedure. Your health care provider may also give you more specific instructions. If you have problems or questions, contact your health care provider. What can I expect after the procedure? After the procedure, it is common to have: Pain at your incision sites. You will be given medicines to control this pain. Mild nausea or vomiting. Bloating and possible shoulder pain from the air-like gas that was used during the procedure. Follow these instructions at home: Incision care Follow instructions from your health care provider about how to take care of your incisions. Make sure you: ? Wash your hands with soap and water before you change your bandage (dressing). If soap and water are not available, use hand sql database programmer. ? Change your dressing as told by your health care provider. ? Leave stitches (sutures), skin glue, or adhesive strips in place. These skin closures may need to be in place for 2 weeks or longer. If adhesive strip edges start to loosen and curl up, you may trim the loose edges. Do not remove adhesive strips completely unless your health care provider tells you to do that. Do not take baths, swim, or use a hot tub until your health care provider approves. Ask your health care provider if you can take showers. You may only be allowed to take sponge baths for bathing. Check your incision area every day for signs of infection. Check for: ? More redness, swelling, or pain. ? More fluid or blood. ? Warmth. ? Pus or a bad smell. Activity Do not drive or use heavy machinery while taking prescription pain medicine. Do not lift anything that is heavier than 10 lb (4.5 kg) until your health care provider approves. Do not play contact sports until your health care provider approves. Do not drive for 24 hours if you were given a medicine to help you relax (sedative). Rest as needed. Do not return to work or school until your health care provider approves. General instructions Take bnmg-cdj-aqgprnu and prescription medicines only as told by your health care provider. To prevent or treat constipation while you are taking prescription pain medicine, your health care provider may recommend that you: ? Drink enough fluid to keep your urine clear or pale yellow. ? Take pwgj-jlf-uzomizk or prescription medicines. ? Eat foods that are high in fiber, such as fresh fruits and vegetables, whole grains, and beans. ? Limit foods that are high in fat and processed sugars, such as fried and sweet foods. Contact a health care provider if: You develop a rash. You have more redness, swelling, or pain around your incisions. You have more fluid or blood coming from your incisions. Your incisions feel warm to the touch. You have pus or a bad smell coming from your incisions. You have a fever. One or more of your incisions breaks open. Get help right away if: You have trouble breathing. You have chest pain. You have increasing pain in your shoulders. You faint or feel dizzy when you stand. You have severe pain in your abdomen. You have nausea or vomiting that lasts for more than one day. You have leg pain. This information is not intended to replace advice given to you by your health care provider. Make sure you discuss any questions you have with your health care provider. Document Released: 01/30/2006 Document Revised: 01/12/2018 Document Reviewed: 07/18/2016 [employer] Patient Education 2020 [employer]. Additional Information VACCINATE! IT SAVES LIVES! Members of the community who have not yet received the COVID-19 vaccine and would like to receive it can visit one of [facility] vaccine clinics. There are many vaccine clinic locations within the [facility]. For locations and available times, please visit [email or web address] It is important to note that some COVID mobile vaccine clinics are held outdoors and may be canceled in rainy or stormy conditions. To learn more about pediatric vaccinations (ages 5-11), we invite you to visit the [facility] webpage. [email or web address] -Questions.html To learn more about the COVID-19 vaccine, we invite you to visit the CDC website for a list of frequently asked questions.https://www.cdc.gov/coronavi sammi/2019-ncov/vaccines/faq.html [facility] Patient Portal Access Instructions: Stay connected with your healthcare team and access your personal medical information anytime with the [facility] Patient Portal. Please follow the directions below to create your [facility] account: 1.Access the email account you provided upon registration to the hospital/physician office.2.Look for an invitation email from [facility].3.Open the email and access the invitation link: Accept Invitation to [facility].4.Fill in the required mullins to create your account. To access your account, visit [email or web address]. Click the blue button labeled Access Patient Portal and then log in with the username and password that you created in the steps above. You will be able to view your test results, lab results, a summary of your visits, upcoming appointments and more. There is also a convenient messaging option where you can send secure messages to your provider. In addition, you will have the ability to download any documents or summaries to your computer and/or send the information securely to a physician. Remember that your healthcare information is confidential, so carefully consider who you will allow to register on the [facility] Patient Portal for access to your information. You can also access the [facility] Patient Portal on the [facility] carlita. Simply click on Patient Portal and then log into your account. If you would like to receive a full copy of your medical records, please contact the [facility] Medical Records Department by calling [phone], Monday through Monday between 8 a.m. and 4:30 p.m. HOW TO SAFELY DISPOSE OF PRESCRIPTION MEDICATIONS Please use one of the following methods to safely dispose of your unused medications. 1.Use a drug disposal kit: the drug disposal pouch allows you to safely discard your old and unused drugs. Ask your nurse to give you one when you are discharged.2.Visit a local take-back location: Many local pharmacies and police departments have programs that collect old and unwanted prescription drugs. Call your local pharmacy or go to http://bit.ValveXchange/1R7Vx6q to find one close to you.3.Make use of household items: Use cat litter or old coffee grounds to dispose medications if other options are not available. Mix your drugs with these household products, seal them in an airtight container and throw it into the garbage. Call [facility]: [phone] to be sure your drugs can be disposed of in this way. Some medicines may require a different approach.4.Never flush your medications down the toilet. IF YOU HAVE BEEN PRESCRIBED AN OPIOID FOR PAIN If you have been prescribed an opioid (such as hydrocodone, oxycodone or morphine), it is critical to understand the possible side effects and risks of opioid pain medications. Even when taken as directed, opioids can have several side effects including: Tolerance, meaning you might need to take more of a medication for the same pain relief. Nausea, vomiting and/or constipation. Sleepiness, dizziness, dry mouth, confusion, depression or itching. Physical dependence, meaning you have withdrawal symptoms when a medication is stopped, can develop within a few days. KNOW YOUR RESPONSIBILITIES It is important to know exactly how much and how often to take the opioid pain medications you are prescribed. Never take opioids in higher amounts or more often than prescribed. Do not combine opioids with alcohol or other drugs that cause drowsiness, such as benzodiazepines, also known as benzos, including diazepam and alprazolam, muscle relaxants or sleep aids. Never sell or share prescription opioids. This is illegal. Store opioids in a secure place and out of reach of others (including children, family, friends and visitors). The last page of this document has been signed and retained as a CHART COPY. Signatures Patient Education Materials Laparoscopic Cholecystectomy, Care After Medication Leaflets My discharge plan and instructions have been reviewed and explained to me and I,JERZYKRISSYON Ruperto understand my current condition and have read and understand these discharge instructions. I have received a written copy of the plan/instructions. If I have questions, I am aware that I should contact my doctor. 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 Family's history: negative. Review of Systems Ear/Nose/Mouth/Throat: Negative except as documented in history of present illness. Respiratory: Negative except as documented in history of present illness. Cardiovascular: Negative except as documented in history of present illness. Gastrointestinal: Negative except as documented in history of present illness. Genitourinary: Negative except as documented in history of present illness. Endocrine: Negative except as documented in history of present illness. Musculoskeletal: Negative except as documented in history of present illness. Integumentary: Negative except as documented in history of present illness. Neurologic: Negative except as documented in history of present illness. Health Status Allergies: Allergic Reactions (Selected) Severity Not Documented Augmentin- Rash. Reglan- lose control of jaw., Allergies (2) ActiveSeverityReaction Augmentinrash Reglanlose control of jaw Current medications: (Selected) Inpatient Medications Ordered LR 1,000 mL: 20 mL/hr, Intravenous Transderm-Scop 1 mg/72 hr transdermal film, extended release: 1 patch(es), Transdermal, q72h lidocaine 1% preservative-free injectable solution: 2.5 mg, 0.25 mL, Intradermal, PREOP pharm lidocaine 1% preservative-free injectable solution: 2.5 mg, 0.25 mL, Intradermal, prep pharm scopolamine (Transderm-Scop Patch REMOVAL): 1 EA, Miscellaneous, Once scopolamine (Transderm-Scop Patch REMOVAL): 1 EA, Miscellaneous, q72h Prescriptions Prescribed mupirocin 2% topical ointment: 1 carlita, Topical, BID, Bilateral intranasal application twice daily for 5 days prior to surgery &/or as many days leading up to surgery as possible due to surgical urgency/scheduling. Send to patient's preferred pharmacy., 22 gram(s), 0 Refill(s) Documented Medications Documented Albuterol (Eqv-ProAir HFA) 90 mcg/inh inhalation aerosol: 2 puff(s), Inhalation, q6hr, PRN: as needed for wheezing, 0 Refill(s) Constulose 10 g/15 mL oral liquid: 20 gram(s), 30 mL, Oral, qHS, 0 Refill(s) amitriptyline 25 mg oral tablet: 25 mg, 1 tab(s), Oral, qHS desvenlafaxine (as succinate) 25 mg oral tablet, extended release: 25 mg, 1 tab(s), Oral, qHS, 30 tab(s), 0 Refill(s) ergocalciferol 50,000 intl units (1.25 mg) oral capsule: 50,000 International_Unit, 1 cap(s), Oral, qHS, 0 Refill(s) montelukast 10 mg oral tablet: 10 mg, 1 tab(s), Oral, qHS, 30 tab(s), 0 Refill(s) pantoprazole 40 mg oral enteric coated tablet: 80 mg, 2 tab(s), Oral, qHS promethazine 12.5 mg oral tablet: 12.5 mg, 1 tab(s), Oral, q4h, PRN: as needed for nausea/vomiting, 60 tab(s), 0 Refill(s) topiramate 50 mg oral tablet: 50 mg, 1 tab(s), Oral, qHS, 0 Refill(s) zolpidem 10 mg oral tablet: 10 mg, 1 tab(s), Oral, qHS, 0 Refill(s), Medications (6) Active Scheduled: (5) lidocaine 1% (MPF) 2 mL vial pf 2.5 mg 0.25 mL, Intradermal, prep pharm lidocaine 1% (MPF) 2 mL vial pf 2.5 mg 0.25 mL, Intradermal, PREOP pharm scopolamine 1.5 mg (1 mg / 72 hours patch) 1 patch(es), Transdermal, q72h Transderm-Scop patch REMOVAL 1 EA, Miscellaneous, q72h Transderm-Scop patch REMOVAL 1 EA, Miscellaneous, Once Continuous: (1) Lactated Ringers 1,000 mL 1,000 mL, Intravenous, 20 mL/hr PRN: (0) Problem list: Medical Acid reflux / SNOMED CT [id number] / Confirmed, Active Problems (13) Acid reflux Anxiety Asthma Back pain Biliary dyskinesia BMI 34.0-34.9,adult Depression Glasses History of kidney stones Insomnia Irritable bowel syndrome Seasonal allergy Vitamin D deficiency Histories Past Medical History: No active or resolved past medical history items have been selected or recorded. Family History: Entire family history is negative. Procedure history: Spine ([id number]). Comments: 08/02/2023 9:24 EDT - Sarah Fry RN PT STATES MID TO UPPER 03/21/2022 8:55 EST - EMILY White FUSION Tonsillectomy ([id number]). EGD - esophagogastroduodenoscopy ([id number]). Social History: Social & Psychosocial Habits Alcohol 08/11/2023 Use: Current Frequency: 1-2 times per year Substance Abuse 08/11/2023 Use: Past Type: Marijuana Started at age: 24 Years Stopped at age: 26 Years Tobacco 08/11/2023 Tobacco Use: Never (less than 100 in l Home/Environment 08/11/2023 Living situation: Home/Independent Domestic Concerns Denies Physical Examination Vital Signs 08/11/2023 11:02 EDT Temperature Temporal Artery 36.6 DegC Peripheral Pulse Rate 80 bpm Respiratory Rate 18 br/min Systolic Blood Pressure Non-Invasive 130 mmHg Diastolic Blood Pressure Non-Invasive 86 mmHg Vital Signs (last 24 hrs) Last Charted Temp Imeurgqb01.6 DegC (AUG 10 11:02) [id number] mmHg (AUG 10 11:02) DBP86 mmHg (AUG 10 11:02) General: Alert and oriented. Airway: Normal temporomandibular joint mobility, Normal mouth, Normal throat, Normal neck range of motion, Trachea midline. Mallampati classification: II (soft palate, fauces, uvula visible). Head: Normocephalic. Dentition Evaluation: Intact, Own teeth, Denies loose/chipped teeth. Neck: Supple. Respiratory: Lungs are clear to auscultation, Respirations are non-labored. Cardiovascular: Normal rate, Regular rhythm, No murmur. Heart Sounds: Normal. Gastrointestinal: Soft. Musculoskeletal Normal range of motion. Integumentary: Intact, Warm, Dry. Neurologic: Alert, Oriented. Review / Management Results review: No qualifying data available . Assessment and Plan [place] [employer]esthesiologists (ASA) physical status classification: Class II. Anesthetic Preoperative Plan Premedication: intravenous. Anesthetic technique: General. Induction: intravenously. Maintenance airway: Oral endotracheal tube. Special techniques: Warming device. Special Monitoring. Postoperative pain management: Per surgeon. Risks discussed: nausea, vomiting, headache, sore throat, dental injury, hypotension, allergic reaction, serious complications. Informed consent: signed by patient. Beta Froylan: Beta Froylan Taken Within 24 Hrs: Yes. Digitally Signed by BERE SARABIA MD on 08/11/2023 12:09 PM [facility] 07-18-2023 Evaluation + Plan note Future Appointments Future Scheduled TestsXR Esophogram W/Barium Tablet 07/18/23 [facility] 07-18-2023 Evaluation + Plan note Future Scheduled TestsXR Esophogram W/Barium Tablet 07/18/23 [facility] 07-09-2023 Hospital Discharge instructions Patient Education 07/09/2023 21:21:42 Drug Reaction, Dystonic Medicine Reaction: Dystonic You are having a muscular reaction to a medicine you have taken. This is not a very common reaction. It is most often caused by medicines given for nausea, seizures, or psychiatric issues. The reaction can happen fairly quickly after taking the medicine. But it may occur after hours or even days. If untreated, the reaction lasts until the medicine is eliminated naturally from your body. This can take up to 3 days. Rarely, it can take a lot longer. You have been given medicines to help treat the reaction. Symptoms may include: Stiffening, tightness, spasm, or twisting of the muscles in the eyes, tongue, jaw, back, legs, or arms Trouble speaking and swallowing Trouble opening your mouth Trouble moving your neck and head Restless, jittery feeling throughout your whole body Home care You may eat and drink normally. Take your other prescribed medicines as directed. Avoid alcohol for the next 3 days. Take diphenhydramine or the medicines you were given for at least 2 days (48 hours). After 2 days, most of the medicine that caused the reaction should be eliminated from your body. If symptoms return, take the medicines for the reaction for another 48 hours. If this does not help, or if you run out of medicine, contact your healthcare provider. Unless specifically advised by your doctor, do not take the medicine that caused the reaction ever again. It may cause the same reaction in the future. If this medicine is needed to treat your condition and no substitutes exist, each dose can be taken along with the medicine to treat the reaction. Every time you visit a healthcare provider or a hospital, tell him or her about your reaction to this medicine. Prevention Most dystonic reactions are caused by a class of medicines called phenothiazines. Some antinausea medicines and some tranquilizers are in this class. If you have reacted to one medicine in this class, any medicine in this class will probably cause the same reaction. Other medicines that may cause this reaction include metoclopramide, some anesthetics, and some street drugs. Unless specifically advised by your doctor, don't take the medicine that caused the reaction ever again. It may cause the same reaction in the future. If this medicine is needed to treat your condition and no substitutes exist, each dose can be taken along with the medicine to treat the reaction. Every time you visit a healthcare provider or a hospital, tell him or her about your reaction to this medicine. Follow-up care Follow up with your healthcare provider or as advised. When to seek medical advice Call your healthcare provider right away if any of these occur: Symptoms return and are not controlled by restarting the medicine you were given to treat the reaction. Symptoms continue or you need to take the medicine for more than 3 days. Call 911 Call 911 if any of these occur. Trouble breathing or swallowing Trouble speaking Confusion Extreme drowsiness or trouble awakening Fainting or loss of consciousness Rapid heart rate Seizure [id number] [employer]. [address] [place] [address]. All rights reserved. This information is not intended as a substitute for professional medical care. Always follow your healthcare professional's instructions. Follow Up Care 07/09/2023 20:16:38 With:TALISHA LEIJA MD Address: [facility] [address] [place] [address]- When:2-[address] [facility] 07-09-2023 Note Discharge Instructions Thank you for allowing [facility] to assist you with your healthcare needs. The following is important discharge information regarding your hospital visit. What to Do Next Instructions from Your Care Team No qualifying data available. Post Acute Orders No qualifying data available. You Need to Schedule the Following Appointments Follow Up with TALISHA LEIJA MD When:Within 2-4 days Where:[facility] [address] [place] [address]- Allergies Augmentin Medications Please ask your primary doctor or pharmacist before taking any other medication not listed, including over the counter drugs, herbal medications, vitamins and or supplements as they may interact with your home medications. What How Much When Instructions Last Dose Unchanged metoclopramide (Reglan 10 mg oral tablet) 1 tab(s) by mouth Four (4) times a day Duration: 5 Days Unchanged tamsulosin (Flomax 0.4 mg oral capsule) 1 cap by mouth Once a day Duration: 3 Days Please take this list to your next doctor s visit. Bring all medications you take, including over the counter medications, herbals and other supplements with you to your doctor s visit. Patients and families are reminded to discard old lists and to update any records with all medication providers or retail pharmacies. Education Materials Medicine Reaction: Dystonic You are having a muscular reaction to a medicine you have taken. This is not a very common reaction. It is most often caused by medicines given for nausea, seizures, or psychiatric issues. The reaction can happen fairly quickly after taking the medicine. But it may occur after hours or even days. If untreated, the reaction lasts until the medicine is eliminated naturally from your body. This can take up to 3 days. Rarely, it can take a lot longer. You have been given medicines to help treat the reaction. Symptoms may include: Stiffening, tightness, spasm, or twisting of the muscles in the eyes, tongue, jaw, back, legs, or arms Trouble speaking and swallowing Trouble opening your mouth Trouble moving your neck and head Restless, jittery feeling throughout your whole body Home care You may eat and drink normally. Take your other prescribed medicines as directed. Avoid alcohol for the next 3 days. Take diphenhydramine or the medicines you were given for at least 2 days (48 hours). After 2 days, most of the medicine that caused the reaction should be eliminated from your body. If symptoms return, take the medicines for the reaction for another 48 hours. If this does not help, or if you run out of medicine, contact your healthcare provider. Unless specifically advised by your doctor, do not take the medicine that caused the reaction ever again. It may cause the same reaction in the future. If this medicine is needed to treat your condition and no substitutes exist, each dose can be taken along with the medicine to treat the reaction. Every time you visit a healthcare provider or a hospital, tell him or her about your reaction to this medicine. Prevention Most dystonic reactions are caused by a class of medicines called phenothiazines. Some antinausea medicines and some tranquilizers are in this class. If you have reacted to one medicine in this class, any medicine in this class will probably cause the same reaction. Other medicines that may cause this reaction include metoclopramide, some anesthetics, and some street drugs. Unless specifically advised by your doctor, don't take the medicine that caused the reaction ever again. It may cause the same reaction in the future. If this medicine is needed to treat your condition and no substitutes exist, each dose can be taken along with the medicine to treat the reaction. Every time you visit a healthcare provider or a hospital, tell him or her about your reaction to this medicine. Follow-up care Follow up with your healthcare provider or as advised. When to seek medical advice Call your healthcare provider right away if any of these occur: Symptoms return and are not controlled by restarting the medicine you were given to treat the reaction. Symptoms continue or you need to take the medicine for more than 3 days. Call 911 Call 911 if any of these occur. Trouble breathing or swallowing Trouble speaking Confusion Extreme drowsiness or trouble awakening Fainting or loss of consciousness Rapid heart rate Seizure [id number] [employer]. [address] [place] [address]. All rights reserved. This information is not intended as a substitute for professional medical care. Always follow your healthcare professional's instructions. Additional Information VACCINATE! IT SAVES LIVES! Members of the community who have not yet received the COVID-19 vaccine and would like to receive it can visit one of [facility] vaccine clinics. There are many vaccine clinic locations within the [facility]. For locations and available times, please visit [email or web address]/. It is important to note that some COVID mobile vaccine clinics are held outdoors and may be canceled in rainy or stormy conditions. To learn more about pediatric vaccinations (ages 5-11), we invite you to visit the [facility] webpage. [email or web address]/[email or web address]-[email or web address]-Frequently-[email or web address] -Questions.html To learn more about the COVID-19 vaccine, we invite you to visit the CDC website for a list of frequently asked questions. https://www.cdc.gov/coronavirus/2019-n cov/vaccines/faq.html [facility] Patient Portal Access Instructions: Stay connected with your healthcare team and access your personal medical information anytime with the [facility] Patient Portal. If you would like a full copy of your medical records please contact the [facility] Medical Records Department Monday through Monday between 8a.m. and 4:30p.m. Please follow the directions below to access the portal: 1.Access the email account you provided upon registration to the hospital.2.Look for an invitation email from [facility].3.Open the email and access the invitation link: Accept Invitation to [facility]4.Fill in the required mullins to create your account. Sign into www.[employer] with your username and password that you created in the above steps to stay up to date. You can then view a summary of results, a summary of your visits, and the ability to download your summaries to your computer or send the information securely to a physician. Remember that your healthcare information is confidential, so carefully consider who you will allow to register on the [facility] Patient Portal for access to your information. You can also access the [facility] Patient Portal on the [employer] car[employer]ita. Simply click on Health Records under Health Data and then click on the [employer] logo. HOW TO SAFELY DISPOSE OF PRESCRIPTION MEDICATIONS Please use one of the following methods to safely dispose of your unused medications. 1.Use a drug disposal kit: the drug disposal pouch allows you to safely discard your old and unused drugs. Ask your nurse to give you one when you are discharged.2.Visit a local take-back location: Many local pharmacies and police departments have programs that collect old and unwanted prescription drugs. Call your local pharmacy or go to http://[employer].ValveXchange/8W3Cl1z to find one close to you.3.Make use of household items: Use cat litter or old coffee grounds to dispose medications if other options are not available. Mix your drugs with these household products, seal them in an airtight container and throw it into the garbage. Call [facility]: [phone] to be sure your drugs can be disposed of in this way. Some medicines may require a different approach.4.Never flush your medications down the toilet. IF YOU HAVE BEEN PRESCRIBED AN OPIOIDS FOR PAIN If you have been prescribed an opioid (such as hydrocodone, oxycodone or morphine), it is critical to understand the possible side effects and risks of opioid pain medications. Even when taken as directed, opioids can have several side effects including: Tolerance, meaning you might need to take more of a medication for the same pain relief. Nausea, vomiting and/or constipation. Sleepiness, dizziness, dry mouth, confusion, depression or itching. Physical dependence, meaning you have withdrawal symptoms when a medication is stopped ? this can develop within a few days. KNOW YOUR RESPONSIBILITIES It is important to know exactly how much and how often to take the opioid pain medications you are prescribed. Never take opioids in higher amounts or more often than prescribed. Do not combine opioids with alcohol or other drugs that cause drowsiness, such as benzodiazepines, also known as benzos, including diazepam and alprazolam, muscle relaxants or sleep aids. Never sell or share prescription opioids. This is illegal. Store opioids in a secure place and out of reach of others (including children, family, friends and visitors). The last page(s) of this document has been signed and retained as a CHART COPY Signatures Patient Education Materials Drug Reaction, Dystonic Medication Leaflets My discharge plan and instructions have been reviewed and explained to me and I,FLORENTINO MYERS understand my current condition and have read and understand these discharge instructions. I have received a written copy of the plan/instructions. If I have questions, I am aware that I should contact my doctor. Patient/Custodian Supervisor Signature: _ Date/Time: Relationship to Patient: Witness Name/Signature: Date/Time: [facility] Geraldokirstie Guardado 07-09-2023 Note Discharge Instructions Thank you for allowing [facility] to assist you with your healthcare needs. The following is important discharge information regarding your hospital visit. What to Do Next Instructions from Your Care Team No qualifying data available. Post Acute Orders No qualifying data available. You Need to Schedule the Following Appointments Follow Up with TALISHA LEIJA MD When:Within 2-4 days Where:[facility] [address] [place] [address]- Allergies Augmentin Medications Please ask your primary doctor or pharmacist before taking any other medication not listed, including over the counter drugs, herbal medications, vitamins and or supplements as they may interact with your home medications. What How Much When Instructions Last Dose Unchanged metoclopramide (Reglan 10 mg oral tablet) 1 tab(s) by mouth Four (4) times a day Duration: 5 Days Unchanged tamsulosin (Flomax 0.4 mg oral capsule) 1 cap by mouth Once a day Duration: 3 Days Please take this list to your next doctor s visit. Bring all medications you take, including over the counter medications, herbals and other supplements with you to your doctor s visit. Patients and families are reminded to discard old lists and to update any records with all medication providers or retail pharmacies. Education Materials Medicine Reaction: Dystonic You are having a muscular reaction to a medicine you have taken. This is not a very common reaction. It is most often caused by medicines given for nausea, seizures, or psychiatric issues. The reaction can happen fairly quickly after taking the medicine. But it may occur after hours or even days. If untreated, the reaction lasts until the medicine is eliminated naturally from your body. This can take up to 3 days. Rarely, it can take a lot longer. You have been given medicines to help treat the reaction. Symptoms may include: Stiffening, tightness, spasm, or twisting of the muscles in the eyes, tongue, jaw, back, legs, or arms Trouble speaking and swallowing Trouble opening your mouth Trouble moving your neck and head Restless, jittery feeling throughout your whole body Home care You may eat and drink normally. Take your other prescribed medicines as directed. Avoid alcohol for the next 3 days. Take diphenhydramine or the medicines you were given for at least 2 days (48 hours). After 2 days, most of the medicine that caused the reaction should be eliminated from your body. If symptoms return, take the medicines for the reaction for another 48 hours. If this does not help, or if you run out of medicine, contact your healthcare provider. Unless specifically advised by your doctor, do not take the medicine that caused the reaction ever again. It may cause the same reaction in the future. If this medicine is needed to treat your condition and no substitutes exist, each dose can be taken along with the medicine to treat the reaction. Every time you visit a healthcare provider or a hospital, tell him or her about your reaction to this medicine. Prevention Most dystonic reactions are caused by a class of medicines called phenothiazines. Some antinausea medicines and some tranquilizers are in this class. If you have reacted to one medicine in this class, any medicine in this class will probably cause the same reaction. Other medicines that may cause this reaction include metoclopramide, some anesthetics, and some street drugs. Unless specifically advised by your doctor, don't take the medicine that caused the reaction ever again. It may cause the same reaction in the future. If this medicine is needed to treat your condition and no substitutes exist, each dose can be taken along with the medicine to treat the reaction. Every time you visit a healthcare provider or a hospital, tell him or her about your reaction to this medicine. Follow-up care Follow up with your healthcare provider or as advised. When to seek medical advice Call your healthcare provider right away if any of these occur: Symptoms return and are not controlled by restarting the medicine you were given to treat the reaction. Symptoms continue or you need to take the medicine for more than 3 days. Call 911 Call 911 if any of these occur. Trouble breathing or swallowing Trouble speaking Confusion Extreme drowsiness or trouble awakening Fainting or loss of consciousness Rapid heart rate Seizure [id number] [employer]. [address] [place] [address]. All rights reserved. This information is not intended as a substitute for professional medical care. Always follow your healthcare professional's instructions. Additional Information VACCINATE! IT SAVES LIVES! Members of the community who have not yet received the COVID-19 vaccine and would like to receive it can visit one of [facility] vaccine clinics. There are many vaccine clinic locations within the [facility]. For locations and available times, please visit www.[email or web address]/. It is important to note that some COVID mobile vaccine clinics are held outdoors and may be canceled in rainy or stormy conditions. To learn more about pediatric vaccinations (ages 5-11), we invite you to visit the [facility] webpage. [email or web address]/[email or web address]-Bxiblmbojxp-Frequently-Asked -Questions.html To learn more about the COVID-19 vaccine, we invite you to visit the CDC website for a list of frequently asked questions. https://www.cdc.gov/coronavirus/2019-n cov/vaccines/faq.html [facility] Patient Portal Access Instructions: Stay connected with your healthcare team and access your personal medical information anytime with the [facility] Patient Portal. If you would like a full copy of your medical records please contact the [facility] Medical Records Department Monday through Monday between 8a.m. and 4:30p.m. Please follow the directions below to access the portal: 1.Access the email account you provided upon registration to the hospital.2.Look for an invitation email from [facility].3.Open the email and access the invitation link: Accept Invitation to [facility].Fill in the required mullins to create your account. Sign into www.[employer] with your username and password that you created in the above steps to stay up to date. You can then view a summary of results, a summary of your visits, and the ability to download your summaries to your computer or send the information securely to a physician. Remember that your healthcare information is confidential, so carefully consider who you will allow to register on the [facility] Patient Portal for access to your information. You can also access the [facility] Patient Portal on the [employer]. Simply click on Health Records under Health Data and then click on the [facility] logo. HOW TO SAFELY DISPOSE OF PRESCRIPTION MEDICATIONS Please use one of the following methods to safely dispose of your unused medications. 1.Use a drug disposal kit: the drug disposal pouch allows you to safely discard your old and unused drugs. Ask your nurse to give you one when you are discharged.2.Visit a local take-back location: Many local pharmacies and police departments have programs that collect old and unwanted prescription drugs. Call your local pharmacy or go to http://BuildCircle.ValveXchange/9D6Ha4d to find one close to you.3.Make use of household items: Use cat litter or old coffee grounds to dispose medications if other options are not available. Mix your drugs with these household products, seal them in an airtight container and throw it into the garbage. Call [facility]: [phone] to be sure your drugs can be disposed of in this way. Some medicines may require a different approach.4.Never flush your medications down the toilet. IF YOU HAVE BEEN PRESCRIBED AN OPIOIDS FOR PAIN If you have been prescribed an opioid (such as hydrocodone, oxycodone or morphine), it is critical to understand the possible side effects and risks of opioid pain medications. Even when taken as directed, opioids can have several side effects including: Tolerance, meaning you might need to take more of a medication for the same pain relief. Nausea, vomiting and/or constipation. Sleepiness, dizziness, dry mouth, confusion, depression or itching. Physical dependence, meaning you have withdrawal symptoms when a medication is stopped ? this can develop within a few days. KNOW YOUR RESPONSIBILITIES It is important to know exactly how much and how often to take the opioid pain medications you are prescribed. Never take opioids in higher amounts or more often than prescribed. Do not combine opioids with alcohol or other drugs that cause drowsiness, such as benzodiazepines, also known as benzos, including diazepam and alprazolam, muscle relaxants or sleep aids. Never sell or share prescription opioids. This is illegal. Store opioids in a secure place and out of reach of others (including children, family, friends and visitors). The last page(s) of this document has been signed and retained as a CHART COPY Signatures Patient Education Materials Drug Reaction, Dystonic Medication Leaflets My discharge plan and instructions have been reviewed and explained to me and I,FLORENTINO MYERS understand my current condition and have read and understand these discharge instructions. I have received a written copy of the plan/instructions. If I have questions, I am aware that I should contact my doctor. 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 07-09-2023 Note Discharge Instructions Thank you for allowing [facility] to assist you with your healthcare needs. The following is important discharge information regarding your hospital visit. What to Do Next Instructions from Your Care Team No qualifying data available. Post Acute Orders No qualifying data available. You Need to Schedule the Following Appointments Follow Up with TALISHA LEIJA MD When:Within 2-4 days Where:[facility] [address] [place] [address]- Allergies Augmentin Medications Please ask your primary doctor or pharmacist before taking any other medication not listed, including over the counter drugs, herbal medications, vitamins and or supplements as they may interact with your home medications. What How Much When Instructions Last Dose Unchanged metoclopramide (Reglan 10 mg oral tablet) 1 tab(s) by mouth Four (4) times a day Duration: 5 Days Unchanged tamsulosin (Flomax 0.4 mg oral capsule) 1 cap by mouth Once a day Duration: 3 Days Please take this list to your next doctor s visit. Bring all medications you take, including over the counter medications, herbals and other supplements with you to your doctor s visit. Patients and families are reminded to discard old lists and to update any records with all medication providers or retail pharmacies. Education Materials Medicine Reaction: Dystonic You are having a muscular reaction to a medicine you have taken. This is not a very common reaction. It is most often caused by medicines given for nausea, seizures, or psychiatric issues. The reaction can happen fairly quickly after taking the medicine. But it may occur after hours or even days. If untreated, the reaction lasts until the medicine is eliminated naturally from your body. This can take up to 3 days. Rarely, it can take a lot longer. You have been given medicines to help treat the reaction. Symptoms may include: Stiffening, tightness, spasm, or twisting of the muscles in the eyes, tongue, jaw, back, legs, or arms Trouble speaking and swallowing Trouble opening your mouth Trouble moving your neck and head Restless, jittery feeling throughout your whole body Home care You may eat and drink normally. Take your other prescribed medicines as directed. Avoid alcohol for the next 3 days. Take diphenhydramine or the medicines you were given for at least 2 days (48 hours). After 2 days, most of the medicine that caused the reaction should be eliminated from your body. If symptoms return, take the medicines for the reaction for another 48 hours. If this does not help, or if you run out of medicine, contact your healthcare provider. Unless specifically advised by your doctor, do not take the medicine that caused the reaction ever again. It may cause the same reaction in the future. If this medicine is needed to treat your condition and no substitutes exist, each dose can be taken along with the medicine to treat the reaction. Every time you visit a healthcare provider or a hospital, tell him or her about your reaction to this medicine. Prevention Most dystonic reactions are caused by a class of medicines called phenothiazines. Some antinausea medicines and some tranquilizers are in this class. If you have reacted to one medicine in this class, any medicine in this class will probably cause the same reaction. Other medicines that may cause this reaction include metoclopramide, some anesthetics, and some street drugs. Unless specifically advised by your doctor, don't take the medicine that caused the reaction ever again. It may cause the same reaction in the future. If this medicine is needed to treat your condition and no substitutes exist, each dose can be taken along with the medicine to treat the reaction. Every time you visit a healthcare provider or a hospital, tell him or her about your reaction to this medicine. Follow-up care Follow up with your healthcare provider or as advised. When to seek medical advice Call your healthcare provider right away if any of these occur: Symptoms return and are not controlled by restarting the medicine you were given to treat the reaction. Symptoms continue or you need to take the medicine for more than 3 days. Call 911 Call 911 if any of these occur. Trouble breathing or swallowing Trouble speaking Confusion Extreme drowsiness or trouble awakening Fainting or loss of consciousness Rapid heart rate Seizure [id number] [employer]. [address] [place] [address]. All rights reserved. This information is not intended as a substitute for professional medical care. Always follow your healthcare professional's instructions. Additional Information VACCINATE! IT SAVES LIVES! Members of the community who have not yet received the COVID-19 vaccine and would like to receive it can visit one of [facility] vaccine clinics. There are many vaccine clinic locations within the [facility]. For locations and available times, please visit www.gettheshot.coronavirus.[place].gov/. It is important to note that some COVID mobile vaccine clinics are held outdoors and may be canceled in rainy or stormy conditions. To learn more about pediatric vaccinations (ages 5-11), we invite you to visit the [facility] webpage. https://www.[employer].org/pages/2 636-Sailu-Edeiqtiimgc-Frequently-Asked -Questions.html To learn more about the COVID-19 vaccine, we invite you to visit the CDC website for a list of frequently asked questions. https://www.cdc.gov/coronavirus/2019-n cov/vaccines/faq.html [facility] Patient Portal Access Instructions: Stay connected with your healthcare team and access your personal medical information anytime with the [facility] Patient Portal. If you would like a full copy of your medical records please contact the [facility] Medical Records Department Monday through Monday between 8a.m. and 4:30p.m. Please follow the directions below to access the portal: 1.Access the email account you provided upon registration to the [facility].2.Look for an invitation email from [facility].3.Open the email and access the invitation link: Accept Invitation to [facility].Fill in the required mullins to create your account. Sign into www.[employer] with your username and password that you created in the above steps to stay up to date. You can then view a summary of results, a summary of your visits, and the ability to download your summaries to your computer or send the information securely to a physician. Remember that your healthcare information is confidential, so carefully consider who you will allow to register on the [facility] Patient Portal for access to your information. You can also access the [facility] Patient Portal on the [employer]. Simply click on Health Records under Health Data and then click on the [employer] logo. HOW TO SAFELY DISPOSE OF PRESCRIPTION MEDICATIONS Please use one of the following methods to safely dispose of your unused medications. 1.Use a drug disposal kit: the drug disposal pouch allows you to safely discard your old and unused drugs. Ask your nurse to give you one when you are discharged.2.Visit a local take-back location: Many local pharmacies and police departments have programs that collect old and unwanted prescription drugs. Call your local pharmacy or go to http://BuildCircle.ValveXchange/1J9Jq8y to find one close to you.3.Make use of household items: Use cat litter or old coffee grounds to dispose medications if other options are not available. Mix your drugs with these household products, seal them in an airtight container and throw it into the garbage. Call [facility]: [phone] to be sure your drugs can be disposed of in this way. Some medicines may require a different approach.4.Never flush your medications down the toilet. IF YOU HAVE BEEN PRESCRIBED AN OPIOIDS FOR PAIN If you have been prescribed an opioid (such as hydrocodone, oxycodone or morphine), it is critical to understand the possible side effects and risks of opioid pain medications. Even when taken as directed, opioids can have several side effects including: Tolerance, meaning you might need to take more of a medication for the same pain relief. Nausea, vomiting and/or constipation. Sleepiness, dizziness, dry mouth, confusion, depression or itching. Physical dependence, meaning you have withdrawal symptoms when a medication is stopped ? this can develop within a few days. KNOW YOUR RESPONSIBILITIES It is important to know exactly how much and how often to take the opioid pain medications you are prescribed. Never take opioids in higher amounts or more often than prescribed. Do not combine opioids with alcohol or other drugs that cause drowsiness, such as benzodiazepines, also known as benzos, including diazepam and alprazolam, muscle relaxants or sleep aids. Never sell or share prescription opioids. This is illegal. Store opioids in a secure place and out of reach of others (including children, family, friends and visitors). The last page(s) of this document has been signed and retained as a CHART COPY Signatures Patient Education Materials Drug Reaction, Dystonic Medication Leaflets My discharge plan and instructions have been reviewed and explained to me and I,JERZY FLORENTINO understand my current condition and have read and understand these discharge instructions. I have received a written copy of the plan/instructions. If I have questions, I am aware that I should contact my doctor. 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 07-07-2023 Hospital Discharge instructions Patient Education 07/07/2023 18:40:11 Abdominal Pain Abdominal Pain Abdominal pain is pain in the stomach or belly area. Everyone has this pain from time to time. In many cases it goes away on its own. But abdominal pain can sometimes be due to a serious problem, such as appendicitis. So it s important to know when to get help. Causes of abdominal pain There are many possible causes of abdominal pain. Common causes in adults include: Constipation, diarrhea, or gas Stomach acid flowing back up into the esophagus (acid reflux or heartburn) Severe acid reflux, called GERD (gastroesophageal reflux disease) A sore in the lining of the stomach or small intestine (peptic ulcer) Inflammation of the gallbladder, liver, or pancreas Gallstones or kidney stones Appendicitis Intestinal blockage An internal organ pushing through a muscle or other tissue (hernia) Urinary tract infections In women, menstrual cramps, fibroids, ovarian cysts, pelvic inflammatory disease, or endometriosis Inflammation or infection of the intestines, including Crohn's disease and ulcerative colitis Irritable bowel syndrome Diagnosing the cause of abdominal pain Your healthcare provider will give you a physical exam help find the cause of your pain. If needed, you will have tests. Belly pain has many possible causes. So it can be hard to find the reason for your pain. Giving details about your pain can help. Tell your provider where and when you feel the pain, and what makes it better or worse. Also let your provider know if you have other symptoms such as: Fever Tiredness Upset stomach (nausea) Vomiting Changes in bathroom habits Blood in the stool or black, tarry stool Weight loss that you can't explain (involuntary weight loss?) Also report any family history of stomach or intestinal problems, or cancers. Tell your provider about all your alcohol use and drug use. Tell your provider about all medicines you use, including herbs, vitamins, and supplements. Treating abdominal pain Some causes of pain need emergency medical treatment right away. These include appendicitis or a bowel blockage. Other problems can be treated with rest, fluids, or medicines. Your healthcare provider can give you specific instructions for treatment or self-care based on what is causing your pain. If you have vomiting or diarrhea, sip water or other clear fluids. When you are ready to eat solid foods again, start with small amounts of ppgn-hg-kcvolm, low-fat foods. These include apple sauce, toast, or crackers. When to get medical care Call 911 or go to the hospital right away if you: Can t pass stool and are vomiting Are vomiting blood or have bloody diarrhea or black, tarry diarrhea Have chest, neck, or shoulder pain Feel like you might pass out Have pain in your shoulder blades with nausea Have sudden, severe belly pain Have new, severe pain unlike any you have felt before Have a belly that is rigid, hard, and hurts to touch Call your healthcare provider if you have: Pain for more than 5 days Bloating for more than 2 days Diarrhea for more than 5 days A fever of 100.4 F (38 C) or higher, or as directed by your healthcare provider Pain that gets worse Weight loss for no reason Continued lack of appetite Blood in your stool How to prevent abdominal pain Here are some tips to help prevent abdominal pain: Eat smaller amounts of food at each meal. Don't eat greasy, fried, or other high-fat foods. Don't eat foods that give you gas. Exercise regularly. Drink plenty of fluids. To help prevent GERD symptoms: Quit smoking. Reduce alcohol and foods that increase stomach acid. Don't use aspirin or jeoy-wuj-ygnqywc pain and fever medicines, if possible. This includes nonsteroidal anti-inflammatory drugs (NSAIDs). Lose excess weight. Finish eating at least 2 hours before you go to bed or lie down. Raise the head of your bed. [id number] [employer]. [address] [place] [address]. All rights reserved. This information is not intended as a substitute for professional medical care. Always follow your healthcare professional's instructions. Follow Up Care 07/07/2023 15:43:18 With:TALISHA LEIJA MD Address: [address] [facility] [address] [place] [address]- When:2-4 days Comments:Make an appointment in 2 to 4 days with your physician. Return if you are worse in any way. With:BUDDY RINCON MD Address: [address] [place], [place] [phone] When:2-4 days Comments:Make an appointment in 2 to 4 days with your physician. Return if you are worse in any way. [facility] 07-07-2023 Note Discharge Instructions Thank you for allowing [facility] to assist you with your healthcare needs. The following is important discharge information regarding your hospital visit. Diagnosis from Today's Visit Abdominal pain What to Do Next Instructions from Your Care Team Medication as we discussed. Keep a food diary to see if there is anything seems to bother you. Follow-up with your collar pointer in 2 to 3 days. Return if worse anyway. No qualifying data available. Post Acute Orders No qualifying data available. You Need to Schedule the Following Appointments Follow Up with TALISHA LEIJA MD When:Within 2-4 days Where:[facility] [address] [place] [address]- Additional Information: Make an appointment in 2 to 4 days with your physician. Return if you are worse in any way. Follow Up with BUDDY RINCON MD When:Within 2-4 days Where:[address] [phone] Additional Information: Make an appointment in 2 to 4 days with your physician. Return if you are worse in any way. Allergies Augmentin Medications Please ask your primary doctor or pharmacist before taking any other medication not listed, including over the counter drugs, herbal medications, vitamins and or supplements as they may interact with your home medications. What How Much When Instructions Last Dose New metoclopramide (Reglan 10 mg oral tablet) 1 tab(s) by mouth Four (4) times a day Duration: 5 Days Printed Prescription Unchanged tamsulosin (Flomax 0.4 mg oral capsule) 1 cap by mouth Once a day Duration: 3 Days Please take this list to your next doctor s visit. Bring all medications you take, including over the counter medications, herbals and other supplements with you to your doctor s visit. Patients and families are reminded to discard old lists and to update any records with all medication providers or retail pharmacies. Medication Leaflets metoclopramide (oral/injection) (MET oh KLJEROME lvei) Meet What is the most important information I should know about metoclopramide? Do not use this medicine if you've ever had muscle movement problems after using metoclopramide or similar medicines, or if you've had a movement disorder called tardive dyskinesia. You also should not use metoclopramide if you've had stomach or intestinal problems (a blockage, bleeding, or a hole or tear), epilepsy or other seizure disorder, or an adrenal gland tumor (pheochromocytoma). NEVER USE METOCLOPRAMIDE IN LARGER AMOUNTS THAN RECOMMENDED, OR FOR LONGER THAN 12 WEEKS. High doses or long-term use of metoclopramide can cause a serious movement disorder that may not be reversible. The longer you use metoclopramide, the more likely you are to develop this movement disorder. The risk of this side effect is higher in diabetics and older adults (especially women). Call your doctor at once if you have uncontrollable muscle movements in your lips, tongue, eyes, face, arms, or legs. What is metoclopramide? Metoclopramide increases muscle contractions in the upper digestive tract. This speeds up the rate at which the stomach empties into the intestines. Metoclopramide oral (taken by mouth) is used for 4 to 12 weeks to treat heartburn caused by gastroesophageal reflux in people who have used other medications without relief. Metoclopramide oral is also used to treat gastroparesis (slow stomach emptying) in people with diabetes, which can cause heartburn and stomach discomfort after meals. Metoclopramide injection is used to treat severe diabetic gastroparesis. The injection is also used to prevent nausea and vomiting caused by chemotherapy or surgery, or to aid in certain medical procedures involving the stomach or intestines. Metoclopramide may also be used for purposes not listed in this medication guide. What should I discuss with my healthcare provider before using metoclopramide? You should not use metoclopramide if you are allergic to it, or if you have: tardive dyskinesia (a disorder of involuntary movements); stomach or intestinal problems such as a blockage, bleeding, or perforation (a hole or tear in your stomach or intestines); epilepsy or other seizure disorder; an adrenal gland tumor (pheochromocytoma); or if you've ever had muscle movement problems after using metoclopramide or similar medicines. Tell your doctor if you have ever had: liver or kidney disease; problems with muscle movements; congestive heart failure or a heart rhythm disorder; high blood pressure; seizures; breast cancer; Parkinson's disease; diabetes; or depression or mental illness. This medicine may contain phenylalanine. Check the medication label if you have phenylketonuria (PKU). Tell your doctor if you are . Metoclopramide may harm an unborn baby if you use the medicine during late . It may not be safe to breast-feed a baby while you are using this medicine. Ask your doctor about any risks. Metoclopramide is not approved for use by anyone younger than 18 years old. How should I use metoclopramide? Follow the directions on your prescription label and read all medication guides. Use the medicine exactly as directed. A metoclopramide injection is given into a muscle or as an infusion into a vein. A healthcare provider will give the injection, usually during surgery, chemotherapy, or a medical procedure. Metoclopramide oral is taken for only 4 to 12 weeks. NEVER USE METOCLOPRAMIDE IN LARGER AMOUNTS THAN RECOMMENDED, OR FOR LONGER THAN 12 WEEKS. High doses or long-term use of metoclopramide can cause a serious movement disorder that may not be reversible. The longer you use metoclopramide, the more likely you are to develop this movement disorder. The risk of this side effect is higher in diabetics and older adults (especially women). Metoclopramide is usually taken 30 minutes before meals and at bedtime, or only with meals that usually cause heartburn. Follow your doctor's dosing instructions very carefully. Do not use two different forms of metoclopramide (such as tablets and oral syrup) at the same time. Measure liquid medicine carefully. Use the dosing syringe provided, or use a medicine dose-measuring device (not a kitchen spoon). To take the orally disintegrating tablet (ODT): Remove a tablet from its blister pack only when you are ready to take the tablet. Use dry hands and take care not to damage a tablet while pushing it out of the blister. Place the tablet in your mouth and allow it to dissolve, without chewing or swallowing it whole. You may sip liquid if needed to help swallow the dissolved tablet. Store at room temperature in a tightly-closed container, away from moisture and heat. Keep the bottle tightly closed. After you stop taking metoclopramide, you may have unpleasant withdrawal symptoms such as headache, dizziness, or nervousness. What happens if I miss a dose? Take the medicine as soon as you can, but skip the missed dose if it is almost time for your next dose. Do not take two doses at one time. What happens if I overdose? Seek emergency medical attention or call the Poison Help line at . Overdose symptoms may include drowsiness, confusion, or uncontrolled muscle movements. What should I avoid while taking metoclopramide? Drinking alcohol with this medicine can cause side effects. Avoid driving or hazardous activity until you know how this medicine will affect you. Your reactions could be impaired. What are the possible side effects of metoclopramide? Get emergency medical help if you have signs of an allergic reaction: hives; difficult breathing; swelling of your face, lips, tongue, or throat. Stop taking metoclopramide and call your doctor at once if you have any of these SIGNS OF A SERIOUS MOVEMENT DISORDER, which may occur within the first 2 days of treatment: tremors or shaking in your arms or legs; uncontrolled muscle movements in your face (chewing, lip smacking, frowning, tongue movement, blinking or eye movement); or any new or unusual muscle movements you cannot control. Call your doctor at once if you have: confusion, depression, thoughts of suicide or hurting yourself; slow or jerky muscle movements, problems with balance or walking; mask-like appearance in your face; a seizure; anxiety, agitation, jittery feeling, trouble staying still, trouble sleeping; swelling, feeling short of breath, rapid weight gain; or severe nervous system reaction--very stiff (rigid) muscles, high fever, sweating, confusion, fast or uneven heartbeats, tremors, feeling like you might pass out. Common side effects may include: feeling restless; feeling drowsy or tired; lack of energy; nausea, vomiting; headache, confusion; or sleep problems (insomnia). This is not a complete list of side effects and others may occur. Call your doctor for medical advice about side effects. You may report side effects to FDA at 9-843-EZJ-5813. What other drugs will affect metoclopramide? Using metoclopramide with other drugs that make you drowsy can worsen this effect. Ask your doctor before you take opioid pain medication, a sleeping pill, a muscle relaxer, or medicine for anxiety, depression, or seizures. Tell your doctor about all your current medicines. Many drugs can affect metoclopramide, especially: an antidepressant; antipsychotic medication; blood pressure medication; insulin; medicine to treat Parkinson's disease or restless leg syndrome; or an MAO inhibitor--isocarboxazid, linezolid, methylene blue injection, phenelzine, tranylcypromine, and others. This list is not complete and many other drugs may affect metoclopramide. This includes prescription and atll-kze-fywzcnx medicines, vitamins, and herbal products. Not all possible drug interactions are listed here. Where can I get more information? Your pharmacist can provide more information about metoclopramide. Remember, keep this and all other medicines out of the reach of children, never share your medicines with others, and use this medication only for the indication prescribed. Every effort has been made to ensure that the information provided by [employer] is accurate, up-to-date, and complete, but no guarantee is made to that effect. Drug information contained herein may be time sensitive. [employer] information has been compiled for use by healthcare practitioners and consumers in the [place] and therefore [employer] does not warrant that uses outside of the [place] are appropriate, unless specifically indicated otherwise. [employer] drug information does not endorse drugs, diagnose patients or recommend therapy. [employer] drug information is an informational resource designed to assist licensed healthcare practitioners in caring for their patients and/or to serve consumers viewing this service as a supplement to, and not a substitute for, the expertise, skill, knowledge and judgment of healthcare practitioners. The absence of a warning for a given drug or drug combination in no way should be construed to indicate that the drug or drug combination is safe, effective or appropriate for any given patient. [employer] does not assume any responsibility for any aspect of healthcare administered with the aid of information [employer] provides. The information contained herein is not intended to cover all possible uses, directions, precautions, warnings, drug interactions, allergic reactions, or adverse effects. If you have questions about the drugs you are taking, check with your doctor, nurse or pharmacist. Copyright 6338-6884 [employer] [employer] Version: 14.. Revision Date: 09/21/2022. Education Materials Abdominal Pain Abdominal pain is pain in the stomach or belly area. Everyone has this pain from time to time. In many cases it goes away on its own. But abdominal pain can sometimes be due to a serious problem, such as appendicitis. So it s important to know when to get help. Causes of abdominal pain There are many possible causes of abdominal pain. Common causes in adults include: Constipation, diarrhea, or gas Stomach acid flowing back up into the esophagus (acid reflux or heartburn) Severe acid reflux, called GERD (gastroesophageal reflux disease) A sore in the lining of the stomach or small intestine (peptic ulcer) Inflammation of the gallbladder, liver, or pancreas Gallstones or kidney stones Appendicitis Intestinal blockage An internal organ pushing through a muscle or other tissue (hernia) Urinary tract infections In women, menstrual cramps, fibroids, ovarian cysts, pelvic inflammatory disease, or endometriosis Inflammation or infection of the intestines, including Crohn's disease and ulcerative colitis Irritable bowel syndrome Diagnosing the cause of abdominal pain Your healthcare provider will give you a physical exam help find the cause of your pain. If needed, you will have tests. Belly pain has many possible causes. So it can be hard to find the reason for your pain. Giving details about your pain can help. Tell your provider where and when you feel the pain, and what makes it better or worse. Also let your provider know if you have other symptoms such as: Fever Tiredness Upset stomach (nausea) Vomiting Changes in bathroom habits Blood in the stool or black, tarry stool Weight loss that you can't explain (involuntary weight loss?) Also report any family history of stomach or intestinal problems, or cancers. Tell your provider about all your alcohol use and drug use. Tell your provider about all medicines you use, including herbs, vitamins, and supplements. Treating abdominal pain Some causes of pain need emergency medical treatment right away. These include appendicitis or a bowel blockage. Other problems can be treated with rest, fluids, or medicines. Your healthcare provider can give you specific instructions for treatment or self-care based on what is causing your pain. If you have vomiting or diarrhea, sip water or other clear fluids. When you are ready to eat solid foods again, start with small amounts of bxep-wh-xbsffn, low-fat foods. These include apple sauce, toast, or crackers. When to get medical care Call 911 or go to the hospital right away if you: Can t pass stool and are vomiting Are vomiting blood or have bloody diarrhea or black, tarry diarrhea Have chest, neck, or shoulder pain Feel like you might pass out Have pain in your shoulder blades with nausea Have sudden, severe belly pain Have new, severe pain unlike any you have felt before Have a belly that is rigid, hard, and hurts to touch Call your healthcare provider if you have: Pain for more than 5 days Bloating for more than 2 days Diarrhea for more than 5 days A fever of 100.4 F (38 C) or higher, or as directed by your healthcare provider Pain that gets worse Weight loss for no reason Continued lack of appetite Blood in your stool How to prevent abdominal pain Here are some tips to help prevent abdominal pain: Eat smaller amounts of food at each meal. Don't eat greasy, fried, or other high-fat foods. Don't eat foods that give you gas. Exercise regularly. Drink plenty of fluids. To help prevent GERD symptoms: Quit smoking. Reduce alcohol and foods that increase stomach acid. Don't use aspirin or nwpz-pkl-stloamj pain and fever medicines, if possible. This includes nonsteroidal anti-inflammatory drugs (NSAIDs). Lose excess weight. Finish eating at least 2 hours before you go to bed or lie down. Raise the head of your bed. [id number] [employer]. [address] [place] [address], [place] [address]. All rights reserved. This information is not intended as a substitute for professional medical care. Always follow your healthcare professional's instructions. Additional Information VACCINATE! IT SAVES LIVES! Members of the community who have not yet received the COVID-19 vaccine and would like to receive it can visit one of [facility] vaccine clinics. There are many vaccine clinic locations within the [facility]. For locations and available times, please visit www.gettheshot.coronavirus.[place].gov/. It is important to note that some COVID mobile vaccine clinics are held outdoors and may be canceled in rainy or stormy conditions. To learn more about pediatric vaccinations (ages 5-11), we invite you to visit the [facility] webpage. https://www.[employer].org/pages/2 551-Jbwae-Ayqmfsowwbu-Frequently-Asked -Questions.html To learn more about the COVID-19 vaccine, we invite you to visit the CDC website for a list of frequently asked questions. https://www.cdc.gov/coronavirus/2019-n cov/vaccines/faq.html [facility] Patient Portal Access Instructions: Stay connected with your healthcare team and access your personal medical information anytime with the [facility] Patient Portal. If you would like a full copy of your medical records please contact the [facility] Medical Records Department Monday through Monday between 8a.m. and 4:30p.m. Please follow the directions below to access the portal: 1.Access the email account you provided upon registration to the hospital.2.Look for an invitation email from [facility].3.Open the email and access the invitation link: Accept Invitation to [facility].Fill in the required mullins to create your account. Sign into www.[employer] with your username and password that you created in the above steps to stay up to date. You can then view a summary of results, a summary of your visits, and the ability to download your summaries to your computer or send the information securely to a physician. Remember that your healthcare information is confidential, so carefully consider who you will allow to register on the [facility] Patient Portal for access to your information. You can also access the [facility] Patient Portal on the [employer]. Simply click on Health Records under Health Data and then click on the [employer] logo. HOW TO SAFELY DISPOSE OF PRESCRIPTION MEDICATIONS Please use one of the following methods to safely dispose of your unused medications. 1.Use a drug disposal kit: the drug disposal pouch allows you to safely discard your old and unused drugs. Ask your nurse to give you one when you are discharged.2.Visit a local take-back location: Many local pharmacies and police departments have programs that collect old and unwanted prescription drugs. Call your local pharmacy or go to http://[employer]le.ValveXchange/5W1Zb4b to find one close to you.3.Make use of household items: Use cat litter or old coffee grounds to dispose medications if other options are not available. Mix your drugs with these household products, seal them in an airtight container and throw it into the garbage. Call [facility]: [phone] to be sure your drugs can be disposed of in this way. Some medicines may require a different approach.4.Never flush your medications down the toilet. IF YOU HAVE BEEN PRESCRIBED AN OPIOIDS FOR PAIN If you have been prescribed an opioid (such as hydrocodone, oxycodone or morphine), it is critical to understand the possible side effects and risks of opioid pain medications. Even when taken as directed, opioids can have several side effects including: Tolerance, meaning you might need to take more of a medication for the same pain relief. Nausea, vomiting and/or constipation. Sleepiness, dizziness, dry mouth, confusion, depression or itching. Physical dependence, meaning you have withdrawal symptoms when a medication is stopped ? this can develop within a few days. KNOW YOUR RESPONSIBILITIES It is important to know exactly how much and how often to take the opioid pain medications you are prescribed. Never take opioids in higher amounts or more often than prescribed. Do not combine opioids with alcohol or other drugs that cause drowsiness, such as benzodiazepines, also known as benzos, including diazepam and alprazolam, muscle relaxants or sleep aids. Never sell or share prescription opioids. This is illegal. Store opioids in a secure place and out of reach of others (including children, family, friends and visitors). The last page(s) of this document has been signed and retained as a CHART COPY Signatures Patient Education Materials Abdominal Pain Medication Leaflets metoclopramide (oral/injection) My discharge plan and instructions have been reviewed and explained to me and I,FLORENTINO MYERS understand my current condition and have read and understand these discharge instructions. I have received a written copy of the plan/instructions. If I have questions, I am aware that I should contact my doctor. 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 07-07-2023 Note ORIGINAL EXAMINATION: COMPLETE ABDOMINAL ULTRASOUND 07/07/2023 4:41 pm COMPARISON: CT abdomen pelvis 05/15/2023 HISTORY: ORDERING SYSTEM PROVIDED HISTORY: Reason for Exam: abdominal pain; suspect gallstones, gallbladder, or cholecystitis FINDINGS: LIVER: The liver demonstrates normal echogenicity without evidence of intrahepatic biliary ductal dilatation. Main portal vein is patent with normal direction of flow. BILIARY SYSTEM: Gallbladder is unremarkable without evidence of pericholecystic fluid, wall thickening or stones. Negative sonographic Christian's sign. Common bile duct is within normal limits measuring 0.3 cm. KIDNEYS: The right kidney measures 10.5 cm in length. The left kidney measures 12.0 cm in length. There is a 1.8 cm simple cyst in the superior left renal pole, no follow-up required. Possible 0.8 cm left inferior renal pole nonobstructive calculus. No hydronephrosis. PANCREAS: Visualized portions of the pancreas are grossly unremarkable. SPLEEN: The spleen is unremarkable in appearance. Spleen is within normal limits in size measuring 12.6 cm. OTHER: No evidence of ascites. IMPRESSION: Suboptimal exam due to patient body habitus and overlying bowel gas. No definite acute findings within the confines. I have personally reviewed the images of this examination and agree with the resident's findings and interpretation. Interpreted by: Gerard Ken Preliminary Report By: Harman May Electronically signed By Gerard Ken Dictated Date: 07/07/2023 4:54:25 PM Prelim Date: 07/07/2023 4:58:33 PM Sign Date: 07/07/2023 5:13:26 PM Ordering Provider: TA ARAGON [facility] 05-16-2023 Hospital Discharge instructions Patient Education 05/15/2023 22:35:13 Kidney Stone w/ Colic Kidney Stone with Pain The sharp cramping pain on either side of your lower back and nausea/vomiting that you have are because of a small stone that has formed in the kidney. It is now passing down a narrow tube (ureter) on its way to your bladder. Once the stone reaches your bladder, the pain will often stop. But it may come back as the stone continues to pass out of the bladder and through the urethra. The stone may pass in your urine stream in one piece. The size may be 1/16 inch to 1/4 inch (1 mm to 6 mm). Or, the stone may break up into ean fragments that you may not even notice. Once you have had a kidney stone, you are at risk of getting another one in the future. There are 4 types of kidney stones. Eighty percent are calcium stones mostly calcium oxalate but also some with calcium phosphate. The other 3 types include uric acid stones, struvite stones (from a preceding infection), and rarely, cystine stones. Most stones will pass on their own, but may take from a few hours to a few days. Sometimes the stone is too large to pass by itself. In that case, the healthcare provider will need to use other ways to remove the stone. These techniques include: Lithotripsy. This uses ultrasound waves to break up the stone. Ureteroscopy. This pushes a basket-like instrument through the urethra and bladder and into the ureter to pull out the stone. Various types of direct surgery through the skin Home care The following are general care guidelines: Drink plenty of fluids. This means at least 12, 8-ounce glasses of fluid mostly water a day. Each time you urinate, do so in a jar. Pour the urine from the jar through the strainer and into the toilet. Continue doing this until 24 hours after your pain stops. By then, if there was a kidney stone, it should pass from your bladder. Some stones dissolve into sand-like particles and pass right through the strainer. In that case, you won t ever see a stone. Save any stone that you find in the strainer and bring it to your healthcare provider to look at. It may be possible to stop certain types of stones from forming. For this reason, it is important to know what kind of stone you have. Try to stay as active as possible. This will help the stone pass. Don't stay in bed unless your pain keeps you from getting up. You may notice a red, pink, or brown color to your urine. This is normal while passing a kidney stone. If you develop pain, you may take ibuprofen or naproxen for pain, unless another medicine was prescribed. If you have chronic liver or kidney disease, talk with your healthcare provider before taking these medicines. Also talk with your provider if you've had a stomach ulcer or GI bleeding. Preventing stones Each year for the next 5 to 7 years, you are at risk that a new stone will form. Your risk is a 50% chance over this time period. The risk is higher if you have a family history of kidney stones or have certain chronic illnesses like hypertension, obesity, or diabetes. But you can make changes to your lifestyle and diet that can lower your risk for another stone. Most kidney stones are made of calcium. The following is advice for preventing another calcium stone. If you don t know the type of stone you have, follow this advice until the cause of your stone is found. Things that help: The most important thing you can do is to drink plenty of fluids each day. See home care above. Eat foods that contain phytates. These include wheat, rice, rye, barley, and beans. Phytates are substances that may lower your risk for any type of stone to form. Eat more fruits and vegetables. Choose those that are high in potassium. Eat foods high in natural citrate like fruit and low-sugar fruit juices. Having too little calcium in your diet can put you at risk for calcium kidney stones. Eat a normal amount of calcium in your diet and talk with your healthcare provider if you are taking calcium supplements. Cutting back on your calcium intake may raise your risk. New research shows that eating calcium-rich and oxalate-rich foods together lowers your risk for stones by binding the minerals in the stomach and intestines before they can reach the kidneys. Limit salt intake to 2 grams (1 teaspoon) per day. Use limited amounts when cooking, and don t add salt at the table. Processed and canned foods are usually high in salt. Spinach, rhubarb, peanuts, cashews, almonds, grapefruit, and grapefruit juice are all high oxalate foods. You should limit how much of these you eat. Or eat them with calcium-rich foods. These include dairy products, dark leafy greens, soy products, and calcium-enriched foods. Reducing the amount of animal meat and high protein foods in your diet may lower your risk for uric acid stones. Avoid excess sugar (sucrose) and fructose (sweetener in many soft drinks) in your diet. If you take vitamin C as a supplement, don't take more than 1,000 mg a day. A dietitian or your healthcare provider can give you information about changes in your diet that will help prevent more kidney stones from forming. Follow-up care Follow up with your healthcare provider, or as advised, if the pain lasts more than 48 hours. Talk with your provider about urine and blood tests to find out the cause of your stone. If you had an X-ray, CT scan, or other diagnostic test, you will be told of any new findings that may affect your care. Call 911 Call 911 if you have any of these: Weakness, dizziness, or fainting When to seek medical advice Call your healthcare provider right away if any of these occur: Pain that is not controlled by the medicine given Repeated vomiting or unable to keep down fluids Fever of 100.4 F (38 C) or higher, or as directed by your healthcare provider Passage of solid red or brown urine (can't see through it) or urine with lots of blood clots Foul-smelling or cloudy urine Unable to pass urine for 8 hours and increasing bladder pressure [id number] [employer]. [address] [place] [address], [place] [address]. All rights reserved. This information is not intended as a substitute for professional medical care. Always follow your healthcare professional's instructions. Follow Up Care 05/15/2023 19:23:55 With:KARINA MEZA Address: [address] [place] [phone] Business (1) When:2-4 days With:TALISHA LEIJA Address: [facility] [address] [place] [address] Business (1) When:2-4 days Comments:[facility] worsen [facility] department Discharge summary Discharge Instructions Thank you for allowing [facility] to assist you with your healthcare needs. The following is important discharge information regarding your hospital visit. Diagnosis from Today's Visit Flank pain Kidney stone What to Do Next Instructions from Your Care Team No qualifying data available. Post Acute Orders No qualifying data available. You Need to Schedule the Following Appointments Follow Up with KARINA MEZA When Within 2-4 days Where: [address] [place] [address] [address] [place] [address]- [phone] [facility] (1) Follow Up with TALISHA LEIJA When Within 2-4 days Why: Return to ED if symptoms worsen Where: [facility] [address] [place] [address] Business (1) Allergies Augmentin Medications Please ask your primary doctor or pharmacist before taking any other medication not listed, including over the counter drugs, herbal medications, vitamins and or supplements as they may interact with your home medications. What How Much When Why Instructions Last Dose New acetaminophen-oxyCODONE (Percocet 5 mg-325 mg oral tablet) 1 tab(s) by mouth Every 6 hours as needed for for pain Kidney stone Duration: 3 Days Printed Prescription New ondansetron (ondansetron 4 mg oral tablet, disintegrating) 1 tab(s) by mouth Every 6 hours as needed for Nausea/Vomiting Duration: 3 Days Printed Prescription New tamsulosin (Flomax 0.4 mg oral capsule) 1 cap by mouth Once a day Duration: 3 Days Printed Prescription Please take this list to your next doctor s visit. Bring all medications you take, including over the counter medications, herbals and other supplements with you to your doctor s visit. Patients and families are reminded to discard old lists and to update any records with all medication providers or retail pharmacies. Education Materials Kidney Stone with Pain The sharp cramping pain on either side of your lower back and nausea/vomiting that you have are because of a small stone that has formed in the kidney. It is now passing down a narrow tube (ureter) on its way to your bladder. Once the stone reaches your bladder, the pain will often stop. But it may come back as the stone continues to pass out of the bladder and through the urethra. The stone may pass in your urine stream in one piece. The size may be 1/16 inch to 1/4 inch (1 mm to 6 mm). Or, the stone may break up into ean fragments that you may not even notice. Once you have had a kidney stone, you are at risk of getting another one in the future. There are 4 types of kidney stones. Eighty percent are calcium stones mostly calcium oxalate but also some with calcium phosphate. The other 3 types include uric acid stones, struvite stones (from a preceding infection), and rarely, cystine stones. Most stones will pass on their own, but may take from a few hours to a few days. Sometimes the stone is too large to pass by itself. In that case, the healthcare provider will need to use other ways to remove the stone. These techniques include: Lithotripsy. This uses ultrasound waves to break up the stone. Ureteroscopy. This pushes a basket-like instrument through the urethra and bladder and into the ureter to pull out the stone. Various types of direct surgery through the skin Home care The following are general care guidelines: Drink plenty of fluids. This means at least 12, 8-ounce glasses of fluid mostly water a day. Each time you urinate, do so in a jar. Pour the urine from the jar through the strainer and into the toilet. Continue doing this until 24 hours after your pain stops. By then, if there was a kidney stone, it should pass from your bladder. Some stones dissolve into sand-like particles and pass right through the strainer. In that case, you won t ever see a stone. Save any stone that you find in the strainer and bring it to your healthcare provider to look at. It may be possible to stop certain types of stones from forming. For this reason, it is important to know what kind of stone you have. Try to stay as active as possible. This will help the stone pass. Don't stay in bed unless your pain keeps you from getting up. You may notice a red, pink, or brown color to your urine. This is normal while passing a kidney stone. If you develop pain, you may take ibuprofen or naproxen for pain, unless another medicine was prescribed. If you have chronic liver or kidney disease, talk with your healthcare provider before taking these medicines. Also talk with your provider if you've had a stomach ulcer or GI bleeding. Preventing stones Each year for the next 5 to 7 years, you are at risk that a new stone will form. Your risk is a 50% chance over this time period. The risk is higher if you have a family history of kidney stones or have certain chronic illnesses like hypertension, obesity, or diabetes. But you can make changes to your lifestyle and diet that can lower your risk for another stone. Most kidney stones are made of calcium. The following is advice for preventing another calcium stone. If you don t know the type of stone you have, follow this advice until the cause of your stone is found. Things that help: The most important thing you can do is to drink plenty of fluids each day. See home care above. Eat foods that contain phytates. These include wheat, rice, rye, barley, and beans. Phytates are substances that may lower your risk for any type of stone to form. Eat more fruits and vegetables. Choose those that are high in potassium. Eat foods high in natural citrate like fruit and low-sugar fruit juices. Having too little calcium in your diet can put you at risk for calcium kidney stones. Eat a normal amount of calcium in your diet and talk with your healthcare provider if you are taking calcium supplements. Cutting back on your calcium intake may raise your risk. New research shows that eating calcium-rich and oxalate-rich foods together lowers your risk for stones by binding the minerals in the stomach and intestines before they can reach the kidneys. Limit salt intake to 2 grams (1 teaspoon) per day. Use limited amounts when cooking, and don t add salt at the table. Processed and canned foods are usually high in salt. Spinach, rhubarb, peanuts, cashews, almonds, grapefruit, and grapefruit juice are all high oxalate foods. You should limit how much of these you eat. Or eat them with calcium-rich foods. These include dairy products, dark leafy greens, soy products, and calcium-enriched foods. Reducing the amount of animal meat and high protein foods in your diet may lower your risk for uric acid stones. Avoid excess sugar (sucrose) and fructose (sweetener in many soft drinks) in your diet. If you take vitamin C as a supplement, don't take more than 1,000 mg a day. A dietitian or your healthcare provider can give you information about changes in your diet that will help prevent more kidney stones from forming. Follow-up care Follow up with your healthcare provider, or as advised, if the pain lasts more than 48 hours. Talk with your provider about urine and blood tests to find out the cause of your stone. If you had an X-ray, CT scan, or other diagnostic test, you will be told of any new findings that may affect your care. Call 911 Call 911 if you have any of these: Weakness, dizziness, or fainting When to seek medical advice Call your healthcare provider right away if any of these occur: Pain that is not controlled by the medicine given Repeated vomiting or unable to keep down fluids Fever of 100.4 F (38 C) or higher, or as directed by your healthcare provider Passage of solid red or brown urine (can't see through it) or urine with lots of blood clots Foul-smelling or cloudy urine Unable to pass urine for 8 hours and increasing bladder pressure [phone] [employer]. [address] [place] [address], [place] [address]. All rights reserved. This information is not intended as a substitute for professional medical care. Always follow your healthcare professional's instructions. Additional Information VACCINATE! IT SAVES LIVES! Members of the community who have not yet received the COVID-19 vaccine and would like to receive it can visit one of [facility] vaccine clinics. There are many vaccine clinic locations within the [facility]. For locations and available times, please visit www.[email or web address].[email or web address]/. It is important to note that some COVID mobile vaccine clinics are held outdoors and may be canceled in rainy or stormy conditions. To learn more about pediatric vaccinations (ages 5-11), we invite you to visit the [facility] webpage. https://www.[email or web address].org/pages/2 799-Rclhh-Skgtwryitxi-Frequently-Asked -Questions.html To learn more about the COVID-19 vaccine, we invite you to visit the CDC website for a list of frequently asked questions. https://www.cdc.gov/coronavirus/2019-n cov/vaccines/faq.html [facility] Patient Portal Access Instructions: Stay connected with your healthcare team and access your personal medical information anytime with the [facility] Patient Portal. If you would like a full copy of your medical records please contact the [facility] Medical Records Department Monday through Monday between 8a.m. and 4:30p.m. Please follow the directions below to access the portal: 1.Access the email account you provided upon registration to the [facility].2.Look for an invitation email from [facility].3.Open the email and access the invitation link: Accept Invitation to [facility]4.Fill in the required mullins to create your account. Sign into www.[employer] with your username and password that you created in the above steps to stay up to date. You can then view a summary of results, a summary of your visits, and the ability to download your summaries to your computer or send the information securely to a physician. Remember that your healthcare information is confidential, so carefully consider who you will allow to register on the [facility] Patient Portal for access to your information. You can also access the [facility] Patient Portal on the [employer] carlita. Simply click on Health Records under Health Data and then click on the [employer] logo. HOW TO SAFELY DISPOSE OF PRESCRIPTION MEDICATIONS Please use one of the following methods to safely dispose of your unused medications. 1.Use a drug disposal kit: the drug disposal pouch allows you to safely discard your old and unused drugs. Ask your nurse to give you one when you are discharged.2.Visit a local take-back location: Many local pharmacies and police departments have programs that collect old and unwanted prescription drugs. Call your local pharmacy or go to http://bit.ValveXchange/5W4Lj9b to find one close to you.3.Make use of household items: Use cat litter or old coffee grounds to dispose medications if other options are not available. Mix your drugs with these household products, seal them in an airtight container and throw it into the garbage. Call [facility]: [phone] to be sure your drugs can be disposed of in this way. Some medicines may require a different approach.4.Never flush your medications down the toilet. IF YOU HAVE BEEN PRESCRIBED AN OPIOIDS FOR PAIN If you have been prescribed an opioid (such as hydrocodone, oxycodone or morphine), it is critical to understand the possible side effects and risks of opioid pain medications. Even when taken as directed, opioids can have several side effects including: Tolerance, meaning you might need to take more of a medication for the same pain relief. Nausea, vomiting and/or constipation. Sleepiness, dizziness, dry mouth, confusion, depression or itching. Physical dependence, meaning you have withdrawal symptoms when a medication is stopped ? this can develop within a few days. KNOW YOUR RESPONSIBILITIES It is important to know exactly how much and how often to take the opioid pain medications you are prescribed. Never take opioids in higher amounts or more often than prescribed. Do not combine opioids with alcohol or other drugs that cause drowsiness, such as benzodiazepines, also known as benzos, including diazepam and alprazolam, muscle relaxants or sleep aids. Never sell or share prescription opioids. This is illegal. Store opioids in a secure place and out of reach of others (including children, family, friends and visitors). The last page(s) of this document has been signed and retained as a CHART COPY Signatures Patient Education Materials Kidney Stone w/ Colic Medication Leaflets My discharge plan and instructions have been reviewed and explained to me and I,FLORENTINO MYERS understand my current condition and have read and understand these discharge instructions. I have received a written copy of the plan/instructions. If I have questions, I am aware that I should contact my doctor. 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 05-15-2023 Note ORIGINAL EXAMINATION: CT OF THE ABDOMEN AND PELVIS WITH CONTRAST4/02/2023 10:10 pm TECHNIQUE: CT of the abdomen and pelvis was performed with the administration of intravenous contrast. Multiplanar reformatted images are provided for review. Automated exposure control, iterative reconstruction, and/or weight based adjustment of the mA/kV was utilized to reduce the radiation dose to as low as reasonably achievable. COMPARISON: None HISTORY: ORDERING SYSTEM PROVIDED HISTORY: Reason for Exam: Flank pain FINDINGS: Bones: No acute osseous abnormalities. Stabilization pratima and screw fixation of the thoracolumbar spine. Lower Thorax: The included lung bases are clear. There is no visible pleural or pericardial effusion. The heart is normal in size. Solid Organs: The liver, gallbladder, pancreas, spleen, and adrenal glands are normal. Collecting System: Mildly delayed right nephrogram. Mild right hydroureteronephrosis secondary to a 0.3 cm calculus at the right UVJ. Nonobstructive left-sided nephrolithiasis measuring up to 0.4 cm. 2.3 cm left renal cyst. Pelvis: The bladder is incompletely distended, however appears grossly unremarkable. The prostate is unremarkable. GI Tract: The stomach and small bowel are normal. The colon is normal. The appendix is normal. Vasculature: The vena cava and portal system is normal. Nonaneurysmal aorta. Lymph Nodes, Mesentery, and Peritoneum: No lymphadenopathy is identified. No free intraperitoneal fluid or gas is identified. Superficial Soft Tissues: Normal abdominal wall. IMPRESSION: Mildly delayed right nephrogram with mild right hydroureteronephrosis secondary to a 0.3 cm calculus at the right UVJ. Additional nonobstructive left nephrolithiasis. Preliminary Report was Dictated by a Resident I have personally reviewed all of the images of this examination and agree with the resident findings and interpretation. Interpreted by: Rylan Bass MD Preliminary Report By: Vandana Govea Electronically signed By Rylan Bass MD Dictated Date: 05/15/2023 10:19:44 PM Prelim Date: 05/15/2023 10:25:55 PM Sign Date: 05/15/2023 11:09:50 PM Ordering Provider: [facility] 03-21-2022 Evaluation + Plan note Extrac roxy from: Title:Clinical Document Author:BUDDY RINCON Date:03/21/22 [place] ADMISSION HISTORY AN D PHYSICIAL CHIEF COMPLAINT: HISTORY OF PRESENT ILLNESS: REVIEW OF SYSTEMS: ACTIVE PROBLEMS: No qualifying data available for Problems MEDICATIONS: Active Inpt Meds: None Active PRN Meds: None One Time Meds: None Active IV Meds: Lactated Ringers Infusion 1,000 mL (LR 1,000 mL) Start: 03/21/22 7:32:00 EST, Rate: 50 mL/hr, 03/21/22 7:32:00 EST ALLERGIES: (1) Augmentin FAMILY HISTORY: SOCIAL HISTORY: PHYSICAL EXAM: VITALS: ZhxjeyNcrjXJDyiakWHYjQ6AHT7AqrjHz(kg) 03/21 07:3536--[id number]/06 97.7 24 Hr Tmax: 36 at 03/21 07:35 36 Hr Tmax: 36 at 03/21 07:35 Vital Signs are the last 5 in the past 48 hours. Weights display the last 5 within 7 days. Initial Wt: 03/21 97.7 kg 215 lb Current Wt: 03/21 97.7 kg 215 lb GENERAL: HEENT: CARDIOVASCULAR: RESPIRATORY: ABDOMEN: EXREMETIES: NEUROLOGICAL: PSYCHIATRIC: LABS: No 36hr Lab Data DIAGNOSTICS: IMPRESSION: PLAN: History and Physical Update I have examined the patient; reviewed the H&P and there are no changes to the H&P unless noted below. [facility] 02-06-2023 Hospital Discharge instructions Patient Education 03/21/2022 09:08:30 Monitored Anesthesia Care, Care After Monitored Anesthesia Care, Care After These instructions provide you with information about caring for yourself after your procedure. Your health care provider may also give you more specific instructions. Your treatment has been plannedaccording to current medical practices, but problems sometimes occur. Call your health care provider if you have any problems or questions after your procedure. What can I expect after the procedure? After your procedure, you may: Feel sleepy for several hours. Feel clumsy and have poor balance for several hours. Feel forgetful about what happened after the procedure. Have poor judgment for several hours. Feel nauseous or vomit. Have a sore throat if you had a breathing tube during the procedure. Follow these instructions at home: For at least 24 hours after the procedure: Have a responsible adult stay with you. It is important to have someone help care for you until youare awake and alert. Rest as needed. Do not: ?Participate in activities in which you could fall or become injured. ?Drive. ?Use heavy machinery. ?Drink alcohol. ?Take sleeping pills or medicines that cause drowsiness. ?Make important decisions or sign legal documents. ?Take care of children on your own. Eating and drinking Follow the diet that is recommended by your health care provider. If you vomit, drink water, juice, or soup when you can drink without vomiting. Make sure you have little or no nausea before eating solid foods. General instructions Take imyf-nkq-nrkrqgp and prescription medicines only as told by your health care provider. If you have sleep apnea, surgery and certain medicines can increase your risk for breathing problems. Follow instructions from your health care provider about wearing your sleep device: ?Anytime you are sleeping, including during daytime naps. ?While taking prescription pain medicines, sleeping medicines, or medicines that make you drowsy. If you smoke, do not smoke without supervision. Keep all follow-up visits as told by your health care provider. This is important. Contact a health care provider if: You keep feeling nauseous or you keep vomiting. You feel light-headed. You develop a rash. You have a fever. Get help right away if: You have trouble breathing. Summary For several hours after your procedure, you may feel sleepy and have poor judgment. Have a responsible adult stay with you for at least 24 hours or until you are awake and alert. This information is not intended to replace advice given to you by your health care provider. Make sure you discuss any questions you have with your health care provider. Document Released: 05/22/2016 Document Revised: 04/30/2018 Document Reviewed: 05/22/2016 [employer] Patient Education 2020 [employer]. 03/21/2022 09:07:57 9 - AO Minor Esophagogastroduodenoscopy (04/26)(CUSTOM) Esophagogastroduodenoscopy This is an endoscopic procedure (a procedure that uses a device like a flexible telescope) that allows your caregiver to view the upper stomach and small bowel. This test allows your caregiver to look at the esophagus. The esophagus carries food from your mouth to your stomach. They can also look at your duodenum. This is the first part of the small intestine that attaches to the stomach. This nu t is used to detect problems in the bowel such as ulcers and inflammation. MEANING OF TEST Your caregiver will go over the test results with you and discuss the importance and meaning of your results, as well as treatment options and the need for additional tests if necessary. OBTAINING THE TEST RESULTS Your caregiver s office will call you with the results of the test. POST SEDATION INSTRUCTIONS Rest at home today. Since your coordination may be impaired, be cautious on stairways, do not drive any vehicle or operate any heavy machinery, or use any sharp instruments for the remainder of the day. Do not drink any alcoholic beverages or make any major decisions for 24 hours. POST PROCEDURE INSTRUCTIONS Progress slowly with full liquids then resume previous diet and medications. Belching or passing of gas is to be expected. Notify the physician if you have severe chest pain, fever, or if difficulty when swallowing persists. 04/23/13 Custom Follow Up Care 03/08/2022 10:43:21 With:BUDDY RINCON MD Address: [facility] [address] [facility] [address] [place] [address]- [phone] When: Unknown Comments:Follow-up as needed [facility] 02-06-2023 Summary of episode note Discharge Instructions Thank you for allowing [facility] to assist you with your healthcare needs. The following is importantdischarge information regarding your hospital visit. Your Care Team TALISHA LEIJA MD Your Diagnosis EGD What to do next Follow Up Appointments Follow Up with BUDDY RINCON MD When Why: Follow-up as needed Where: [address] [facility] [address] [place] [address] [phone] Allergies Augmentin Medications Please ask your primary doctor or pharmacist before taking any other medication not listed, including over the counter drugs, herbal medications, vitamins and or supplements as they may interact withyour home medications. What How Much When Why Instructions Last Dose Unchanged tamsulosin (Flomax 0.4 mg oral capsule) 1 cap by mouth Once a day Kidney stone Duration: 7 Days Please take this list to your next doctor s visit. Bring all medications you take, including over the counter medications, herbals and other supplements with you to your doctor s visit. Patients and families are reminded to discard old lists and to update any records with all medication providers or retail pharmacies. Education Materials Monitored Anesthesia Care, Care After These instructions provide you with information about caring for yourself after your procedure. Your health care provider may also give you more specific instructions. Your treatment has been plannedaccording to current medical practices, but problems sometimes occur. Call your health care provider if you have any problems or questions after your procedure. What can I expect after the procedure? After your procedure, you may: Feel sleepy for several hours. Feel clumsy and have poor balance for several hours. Feel forgetful about what happened after the procedure. Have poor judgment for several hours. Feel nauseous or vomit. Have a sore throat if you had a breathing tube during the procedure. Follow these instructions at home: For at least 24 hours after the procedure: Have a responsible adult stay with you. It is important to have someone help care for you until youare awake and alert. Rest as needed. Do not: ? Participate in activities in which you could fall or become injured. ? Drive. ? Use heavy machinery. ? Drink alcohol. ? Take sleeping pills or medicines that cause drowsiness. ? Make important decisions or sign legal documents. ? Take care of children on your own. Eating and drinking Follow the diet that is recommended by your health care provider. If you vomit, drink water, juice, or soup when you can drink without vomiting. Make sure you have little or no nausea before eating solid foods. General instructions Take abyt-lxf-btfjnni and prescription medicines only as told by your health care provider. If you have sleep apnea, surgery and certain medicines can increase your risk for breathing problems. Follow instructions from your health care provider about wearing your sleep device: ? Anytime you are sleeping, including during daytime naps. ? While taking prescription pain medicines, sleeping medicines, or medicines that make you drowsy. If you smoke, do not smoke without supervision. Keep all follow-up visits as told by your health care provider. This is important. Contact a health care provider if: You keep feeling nauseous or you keep vomiting. You feel light-headed. You develop a rash. You have a fever. Get help right away if: You have trouble breathing. Summary For several hours after your procedure, you may feel sleepy and have poor judgment. Have a responsible adult stay with you for at least 24 hours or until you are awake and alert. This information is not intended to replace advice given to you by your health care provider. Make sure you discuss any questions you have with your health care provider. Document Released: 05/22/2016 Document Revised: 04/30/2018 Document Reviewed: 05/22/2016 Elsevier Patient Education 2020 [employer] Esophagogastroduodenoscopy This is an endoscopic procedure (a procedure that uses a device like a flexible telescope) that allows your caregiver to view the upper stomach and small bowel. This test allows your caregiver to look at the esophagus. The esophagus carries food from your mouth to your stomach. They can also look at your duodenum. This is the first part of the small intestine that attaches to the stomach. This nu t is used to detect problems in the bowel such as ulcers and inflammation. MEANING OF TEST Your caregiver will go over the test results with you and discuss the importance and meaning of your results, as well as treatment options and the need for additional tests if necessary. OBTAINING THE TEST RESULTS Your caregiver s office will call you with the results of the test. POST SEDATION INSTRUCTIONS Rest at home today. Since your coordination may be impaired, be cautious on stairways, do not drive any vehicle or operate any heavy machinery, or use any sharp instruments for the remainder of the day. Do not drink any alcoholic beverages or make any major decisions for 24 hours. POST PROCEDURE INSTRUCTIONS Progress slowly with full liquids then resume previous diet and medications. Belching or passing of gas is to be expected. Notify the physician if you have severe chest pain, fever, or if difficulty when swallowing persists. 04/23/13 Custom Additional Information VACCINATE! IT SAVES LIVES! Members of the community who have not yet received the COVID-19 vaccine and would like to receive it can visit one of [facility] vaccine clinics. There are many vaccine clinic locations within the [facility]. For locations and available times, please visit [email or web address]/. It is important to note that some COVID mobile vaccine clinics are held outdoors and may be canceled in rainy or stormy conditions. To learn more about pediatric vaccinations (ages 5-11), we invite you to visit the [facility] webpage. https://www.[facility].org/pages/5186-Tiqjt-Tyncnfbxhul-Hhlokwxeld-Vvaju-Ise stions.htmlTo learn more about the COVID-19 vaccine, we invite you to visit the [facility] website for a list of frequently asked questions. [email or web address]/assets/Bsrnwexs-glx-Ojyegtad/jjxyh-Blhxrpg-Qjeuceflyh _Asked-Questions.pdf [facility] Patient Portal Access Instructions: Stay connected with your healthcare team and access your personal medical information anytime with the [facility] Patient Portal.If you would like a full copy of your medical records, please contact the [facility] Medical Records Department, Monday through Monday between 8a.m. and 4:30p.m. Please follow the directions below to access the portal: 1.Access the email account you provided upon registration to the [facility].2.Look for an invitation email from [facility].3.Open the email and access the invitation link: Accept Invitation to [facility]4.Fill in the required mullins to create your account. Sign into www.[email or web address] with your username and password that you created in the above steps to stay up to date. You can then view a summary of results, a summary of your visits, and the ability to download your summaries to your computer or send the information securely to a physician. Remember that your healthcare information is confidential, so carefully consider who you will allow to register on the [facility] Patient Portal for access to your information. You can also access the [facility] Patient Portal on the [employer]. Simply click on Health Records under [employer] and then click on the [employer] logo. HOW TO SAFELY DISPOSE OF PRESCRIPTION MEDICATIONS Please use one of the following methods to safely dispose of your unused medications. 1.Use a drug disposal kit: the drug disposal pouch allows you to safely discard your old and unuseddrugs. Ask your nurse to give you one when you are discharged.2.Visit a local take-back location: Many local pharmacies and police departments have programs that collect old and unwanted prescriptiondrugs. Call your local pharmacy or go to http://bit.ly/9C2Yk6o to find one close to you.3.Make use of household items: Use cat litter or old coffee grounds to dispose medications if other options arenot available. Mix your drugs with these household products, seal them in an airtight container andthrow it into the garbage. Call [facility]: [phone] to be sure your drugs can be disposed of in this way. Some medicines may require a different approach.4.Never flush your medications down the toilet. IF YOU HAVE BEEN PRESCRIBED AN OPIOID FOR PAIN If you have been prescribed an opioid (such as hydrocodone, oxycodone or morphine), it is critical to understand the possible side effects and risks of opioid pain medications. Even when taken as directed, opioids can have several side effects including: Tolerance, meaning you might need to take more of a medication for the same pain relief. Nausea, vomiting and/or constipation. Sleepiness, dizziness, dry mouth, confusion, depression or itching. Physical dependence, meaning you have withdrawal symptoms when a medication is stopped, can develop within a few days. KNOW YOUR RESPONSIBILITIES It is important to know exactly how much and how often to take the opioid pain medications you are prescribed. Never take opioids in higher amounts or more often than prescribed. Do not combine opioids with alcohol or other drugs that cause drowsiness, such as benzodiazepines, also known as benzos, including diazepam and alprazolam, muscle relaxants or sleep aids. Never sell or share prescription opioids. This is illegal. Store opioids in a secure place and out of reach of others (including children, family, friends and visitors). The last page of this document has been signed and retained as a CHART COPY. Signatures Patient Education Materials Monitored Anesthesia Care, Care After 9 - AO Minor Esophagogastroduodenoscopy (04/26)(CUSTOM) Medication Leaflets My discharge plan and instructions have been reviewed and explained to me and I,GUY MYERStand my current condition and have read and understand these discharge instructions. I have received a written copy of the plan/instructions. If I have questions, I am aware that I should contact my doctor. Patient/Custodian Supervisor Signature: Date/Time: Relationship to Patient: Witness Name/Signature: Date/Time: [facility]02-06-2023 Anesthesiology Consult note Patient: GUY MYERS Age: 26 years Sex: Male : 1995 Associated Diagnoses: None Author: MAGDIEL PICKETT Assessment Postanesthesia assessment Vitals: Vital signs from flowsheet : Vital Signs 03/21/2022 9:00 EST Heart Rate Monitored 75 bpm bpm Respiratory Rate - Anes 16 br/min br/min 03/21/2022 8:55 EST Heart Rate Monitored 70 bpm bpm Respiratory Rate - Anes 20 br/min br/min Systolic Blood Pressure Non-Invasive 139 mmHg mmHg Diastolic Blood Pressure Non-Invasive 100 mmHg mmHg 03/21/2022 8:53 EST Systolic Blood Pressure Non-Invasive 139 mmHg mmHg Diastolic Blood Pressure Non-Invasive 101 mmHg mmHg 03/21/2022 7:35 EST Temperature Temporal Artery 36 DegC Apical Heart Rate 88 bpm Respiratory Rate 20 br/min Systolic Blood Pressure Non-Invasive 147 mmHg HI Diastolic Blood Pressure Non-Invasive 89 mmHg Blood Pressure Location Left arm Blood Pressure Cuff Size Large , Measurements from flowsheet . Mental status: alert & oriented x 4. Respiratory function: respirations are non-labored. Respiratory support: none. CV function: Normal rate. Cardiovascular support: none. Pain. Nausea status: see nursing documentation of medications. Postoperative hydration status: within normal limits. Digitally Signed by MAGDIEL PICKETT on 03/21/2022 09:[address] [facility]02-06-2023 Note [place] ADMISSION HISTORY AND PHYSICIAL CHIEF COMPLAINT: HISTORY OF PRESENT ILLNESS: REVIEW OF SYSTEMS: ACTIVE PROBLEMS: No qualifying data available for Problems MEDICATIONS: Active Inpt Meds: None Active PRN Meds: None One Time Meds: None Active IV Meds: Lactated Ringers Infusion 1,000 mL (LR 1,000 mL) Start: 03/21/22 7:32:00 EST, Rate: 50 mL/hr, 03/21/22 7:32:00 EST ALLERGIES: (1) Augmentin FAMILY HISTORY: SOCIAL HISTORY: PHYSICAL EXAM: VITALS: [id number](kg) 03/21 07:3536--[id number] 97.7 24 Hr Tmax: 36 at 03/21 07:35 36 Hr Tmax: 36 at 03/21 07:35 Vital Signs are the last 5 in the past 48 hours. Weights display the last 5 within 7 days. Initial Wt: 03/21 97.7 kg 215 lb Current Wt: 03/21 97.7 kg 215 lb GENERAL: HEENT: CARDIOVASCULAR: RESPIRATORY: ABDOMEN: EXREMETIES: NEUROLOGICAL: PSYCHIATRIC: LABS: No 36hr Lab Data DIAGNOSTICS: IMPRESSION: PLAN: History and Physical Update I have examined the patient; reviewed the H&P and there are no changes to the H&P unless noted below. Digitally Signed by BUDDY RINCON MD on 03/21/2022 08:[address] [facility]02-06-2023 Anesthesiology Consult note Patient: GUY YMERS Age: 26 years Sex: Male : 1995 Associated Diagnoses: None Author: MAGDIEL PICKETT APRN-YARD CALLER Preoperative Information Time of last food or liquid consumption: 03/21/2022 00:00:00 Anesthesia history Patient's history: negative. Family's history: negative. Health Status Allergies: Allergic Reactions (Selected) Severity Not Documented Augmentin- No reactions were documented., Allergies (1) ActiveReaction AugmentinNone Documented Current medications: (Selected) Inpatient Medications Ordered LR 1,000 mL: 50 mL/hr, Intravenous Prescriptions Prescribed Flomax 0.4 mg oral capsule: 0.4 mg, 1 cap(s), Oral, qDay, for 7 day(s), 7 cap(s), 0 Refill(s), Medications (1) Active Scheduled: (0) Continuous: (1) Lactated Ringers Infusion 1,000 mL 1,000 mL, Intravenous, 50 mL/hr PRN: (0) Problem list: No qualifying data available Histories Past Medical History: No active or resolved past medical history items have been selected or recorded. Family History: No family history items have been selected or recorded. Procedure history: No active procedure history items have been selected or recorded. Social History Social & Psychosocial Habits No Data Available . Physical Examination Vital Signs 03/21/2022 7:35 EST Temperature Temporal Artery 36 DegC Apical Heart Rate 88 bpm Respiratory Rate 20 br/min Systolic Blood Pressure Non-Invasive 147 mmHg HI Diastolic Blood Pressure Non-Invasive 89 mmHg Blood Pressure Location Left arm Blood Pressure Cuff Size Large Vital Signs(last 24 hrs) Last Charted Resp Rate 20 br/min (MAR 21 07:35) SBPH 147mmHg (MAR 21 07:35) DBP89 mmHg (MAR 21 07:35) BMI26.92 (MAR 21 07:35) Measurements from flowsheet : Measurements 03/21/2022 7:35 EST Height 190.5 cm Admission Weight 97.7 kg [place] Body Weight 84.50 kg BSA Admission 2.26 Body Mass Index 26.92 kg/m2 Pain assessment: Pain Assessment 03/21/2022 7:35 EST Primary Pain Intensity 0 Pain Scale Type 0-10 Pain scale . General: Alert and oriented. Airway: Normal temporomandibular joint mobility, Normal mouth, Normal neck range of motion. Mallampati classification: III (soft palate, base of uvula visible). Dentition Evaluation: Denies loose/chipped teeth. Respiratory: Respirations are non-labored. Cardiovascular: Normal rate. Neurologic: Alert, Oriented. Review / Management Results review: No qualifying data available , Lab results 03/21/2022 8:49 EST SN - CAt - Case Attendee SN - CAt - Case Attendee SN - CAt - Case Attendee SN - CAt - Case Attendee SN - CAt - Case Attendee SN - CAt - Case Attendee SN - CAt - Case Attendee SN - CAt - Case Attendee SN - CAt - Role Performed Primary Surgeon SN - CAt - Role Performed YARD CALLER SN - CAt - Role Performed Diesel Engine Assembler 1 SN - CAt - Role Performed Environmental Property Assessor 03/21/2022 7:46 EST Lactated Ringers Injection Begin Bag 1,000 mL mL 03/21/2022 7:45 EST IV Present Present Forearm Right 03/21/2022 22 gauge Peripheral IV Activity: Insert new site Peripheral IV Dressing Condition: Clean, Dry, Intact Peripheral IV Dressing Activity: Applied, Transparent dressing Peripheral IV Line Status/Patency: Flushes easily Peripheral IV Site Condition: No complications Peripheral IV Equipment: Extension set 03/21/2022 7:35 EST Designated Person #1 We May Share KALIEE Coe .[phone] Designated Person #1 Relationship Mother Height 190.5 cm Admission Weight 97.7 kg [place] Body Weight 84.50 kg BSA Admission 2.26 Body Mass Index 26.92 kg/m2 Temperature Temporal Artery 36 DegC Apical Heart Rate 88 bpm Respiratory Rate 20 br/min Systolic Blood Pressure Non-Invasive 147 mmHg HI Diastolic Blood Pressure Non-Invasive 89 mmHg Blood Pressure Location Left arm Blood Pressure Cuff Size Large Primary Pain Intensity 0 Pain Scale Type 0-10 Pain scale Heart Rhythm Regular Oxygen Therapy Room air Oxygen Saturation 100 % Abdomen Description Non-distended Bowel Sounds All Quadrants Present Urinary Elimination Voiding, no difficulties Status N/A Skin Temperature Warm Skin Description [place], Dry Skin Integrity Intact Neurological Symptoms Patient denies Extremity Movement Equal Characteristics of Speech Clear Level of Consciousness Alert MARILIN Yes Strength All Extremities Strong Tone All Extremities Normal Sensation All Extremities Intact Affect/Behavior Appropriate Orientation Oriented x 4 Sensory Deficits None Infectious Disease Symptoms Patient states no symptoms Infectious Disease Recent Exposure No Alcohol and Drug Use No Employee of Institutional Living No Health Care Employee No History of Exposure to TB No History of Positive Chest X-Ray for TB No History of Positive TB Skin Test No Homeless No Known Immunosuppression No Recent Immigrant No Resident of Institutional Living No Bloody Sputum No Fatigue No Fever No Loss of Appetite No Night Sweats No Persistent Cough > 3 Weeks No Weight Loss No Allergies Yes Consent Form Signed Yes Patient Dressed In Hospital gown History & Physical Update On Chart Yes History & Physical On Chart Yes Barriers to Learning None evident Teaching Method Explanation, Printed materials Preferred Written Language Czech Preferred Spoken Language Czech Information Given by Patient Patient's Current Physicians Talisha Leija Discharge To, Anticipated Home independently Activity Status ADL Awake NPO Status Maintained Standard Safety ID band on, Allergy Band on, Call device within reach, Bed in low position, Wheels locked, Upper/Half-Length side-rails up, Safety level maintained Prev Test Positive/Diagnosis w/COVID-19 Yes Previous COVID-19 Positive Date jan 2022 Current Quarantine/Isolated any Illness No Any Contact with Sick Animals/Birds No Traveled Anywhere in Last 30 Days No Allergy Band on and Verified Yes Patient ID Band on and Verified Yes Implants Verified Yes Pacemaker/AICD Verified Yes Last Fluid Intake 03/20/2022 22:00 Last Food Intake 03/20/2022 20:00 N/A Personal Devices, Patient Valuables None Admission Note-Nursing Procedure/Therapy Intake . Assessment and Plan [place] [employer] (ASA) physical status classification: Class III. Anesthetic Preoperative Plan Anesthetic technique: MAC. Informed consent: signed by patient. Digitally Signed by MAGDIEL PICKETT on 03/21/2022 08:[address] [facility]01-13-2022 NoteHNO ID: [id number] Author: Vasile Barreto PA-C Service: ? Author Type: Physician Coding Machine Operator Type: Progress Notes Filed: 02/25/2021 7:00 PM Note Text: Subjective HPI HPI Florentino Myers is a 25 year old male who presents today for CC of chest congestion, sinus pressure, slightly SOB, headache since yesterday. Pt is vaccinated, with 2nd dose in 07/03. Yet to receive booster. Had a covid + exposure at work today. Symptoms include: Fever (?100.4F): No or Chills: No Cough: Yes Shortness of breath: Yes or Difficulty breathing: No Fatigue: Yes Muscle aches: No Headache: Yes New loss of smell or taste: No Sore throat: Yes Nasal congestion: Yes or Rhinorrhea: Yes Nausea: No or Vomiting: No Diarrhea: No OTC meds/remedies that patient has tried: NSAIDs. High risk category assessment No high risk factors Exposures: Sick contacts? Yes Family or close contacts with confirmed/probable COVID-19 in last 14 days? Yes BP 120/76 Pulse 82 Temp 36.7 ?C (98 ?F) Wt 101.6 kg (224 lb) SpO2 100% BMI 28.76 kg/m? Social History Tobacco Use - Smoking status: Never Smoker - Smokeless tobacco: Never Used Substance Use Topics - Alcohol use: Not on file - Drug use: Not on file PAST MEDICAL HISTORY Diagnosis Date - Allergic rhinitis - Anxiety - Selective mutism I have confirmed and edited as necessary, the [facility] Review of Systems All other systems reviewed and are negative. Objective BP 120/76 Pulse 82 Temp 36.7 ?C (98 ?F) Wt 101.6 kg (224 lb) SpO2 100% BMI 28.76 kg/m? Physical Exam Vitals and nursing note reviewed. Constitutional: Appearance: He is ill-appearing (Mild; Generally fatigued appearance.). He is not toxic-appearing. HENT: Head: Normocephalic and atraumatic. Nose: No mucosal edema or rhinorrhea. Right Sinus: No maxillary sinus tenderness or frontal sinus tenderness. Left Sinus: No maxillary sinus tenderness or frontal sinus tenderness. Mouth/Throat: Pharynx: Uvula midline. No oropharyngeal exudate or posterior oropharyngeal erythema. Tonsils: No tonsillar abscesses. Cardiovascular: Rate and Rhythm: Normal rate and regular rhythm. Heart sounds: Normal heart sounds. Pulmonary: Effort: Pulmonary effort is normal. Breath sounds: Normal breath sounds. No decreased breath sounds, wheezing, rhonchi or rales. Musculoskeletal: Cervical back: Normal range of motion. Lymphadenopathy: Head: Right side of head: No submental, submandibular, tonsillar, preauricular, posterior auricular or occipital adenopathy. Left side of head: No submental, submandibular, tonsillar, preauricular, posterior auricular or occipital adenopathy. Cervical: No cervical adenopathy. Right cervical: No superficial or posterior cervical adenopathy. Left cervical: No superficial or posterior cervical adenopathy. Skin: General: Skin is warm and dry. Neurological: Mental Status: He is alert and oriented to person, place, and time. Psychiatric: Mood and Affect: Affect normal. ASSESSMENT/PLAN: 1. URI with cough and congestion - ICD9: 465.9, ICD10: J06.9 (primary diagnosis) - Discussed viral etiology and rationale for treatment. Covid and flu testing ordered; Results will be released to [facility] in 24-48 hours. Discussed quarantine, social distancing, hand washing/proper hygiene. Rest, fluids, OTC medications discussed. - COVID WITH FLUA+B, ROUTINE 2. Exposure to COVID-19 virus - ICD9: V01.79, ICD10: Z20.822 See above - COVID WITH FLUA+B, ROUTINE Pt advised to see PCP if symptoms persist or progress. Reviewed red flags (ie chest pain, shortness of breath) with patient and when to seek care sooner. The patient indicates understanding of these issues and agrees with the plan. [facility]11-28-2021 NoteHNO ID: [id number] Author: Adelina Leo APRN.LACE BURN OUT TENDER Service: ? Author Type: Nurse Practitioner Type: Progress Notes Filed: 01/10/2021 2:49 PM Note Text: This note was created using [employer]. Subjective Florentino Myers is a 25 year old male. 25 year old male with PMH anxiety presents with complaints of right ear pain. Acute onset Monday night Right ear Aching Denies drainage or hearing loss. Denies fever or chills. Denies accompanying URI sx. Denies fever or chills. Denies skin rash or lesions. Has utilized Tylenol and Mucinex with mild relief. The history is provided by the patient. 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 Ear Pain This is a new problem. The current episode started in the past 7 days. The problem occurs constantly. The problem has been unchanged. Pertinent negatives include no abdominal pain, anorexia, arthralgias, change in bowel habit, chest pain, chills, congestion, coughing, diaphoresis, fatigue, fever, headaches, joint swelling, myalgias, nausea, neck pain, numbness, rash, sore throat, swollen glands, urinary symptoms, vertigo, visual change, vomiting or weakness. Nothing aggravates the symptoms. Treatments tried: Tylenol and Mucinex. The treatment provided no relief. PAST MEDICAL HISTORY Diagnosis Date - Allergic rhinitis - Anxiety - Selective mutism PAST SURGICAL HISTORY Procedure Laterality Date - REDUCE TESTES TORSION 2013 - REM LESIO TRUNK,ARM,LEG 1.1 -2.0CM Left 04/15/15 Exc. folliculitis suprpubic - TONSILLECTOMY HX 99 ALLERGIES Augmentin [Amoxicillin-Pot Clavulanate] and Lactose MEDICATIONS albuterol HFA (PROVENTIL HFA, VENTOLIN HFA) 90 mcg/actuation inhaler Inhale 2 puffs every 4 hours as needed for uncontrolled asthma symptoms ergocalciferol 50,000 unit capsule (VITAMIN D2, DRISDOL) Take 1 capsule by mouth one time a week. acetaminophen (TYLENOL) 325 mg tablet Take 650 mg by mouth every 6 hours as needed. topiramate (TOPAMAX) 200 mg tablet Take 200 mg by mouth daily at bedtime. desvenlafaxine ER (PRISTIQ) 100 mg 24 hr tablet Take 200 mg by mouth daily at bedtime. montelukast (SINGULAIR) 10 mg tablet Take 10 mg by mouth daily at bedtime. loratadine (CLARITIN) 10 mg tablet Take 10 mg by mouth once daily as needed. cefdinir (OMNICEF) 300 mg capsule Take 1 capsule by mouth twice daily for 7 days. desvenlafaxine ER (PRISTIQ) 100 mg 24 hr tablet Take 1 tablet by mouth at bedtime. Take with 50 mg desvenlafaxine desvenlafaxine ER (PRISTIQ) 50 mg 24 hr tablet Take 1 tablet by mouth at bedtime. Take with 100 mg desvenlafaxine topiramate (TOPAMAX) 200 mg tablet Take 3 tablets by mouth at bedtime desvenlafaxine ER (PRISTIQ) 100 mg 24 hr tablet Take 1 tablet by mouth at bedtime with 50 mg desvenlafaxine desvenlafaxine ER (PRISTIQ) 50 mg 24 hr tablet Take 1 tablet by mouth at bedtime with 100 mg desvenlafaxine topiramate (TOPAMAX) 200 mg tablet Take 3 tablets by mouth at bedtime montelukast (SINGULAIR) 10 mg tablet Take 1 tablet (10 mg) by mouth daily in the evening desvenlafaxine ER (PRISTIQ) 50 mg 24 hr tablet Take 1 tablet by mouth daily at bedtime with 100mg desvenlafaxine. desvenlafaxine ER (PRISTIQ) 100 mg 24 hr tablet Take 1 tablet by mouth daily at bedtime with 50mg desvenlafaxine. meloxicam (MOBIC) 7.5 mg tablet Take 2 tablets by mouth once daily. Calcium-Cholecalciferol, D3, (CALCIUM 500 + D) 500 mg(1,250mg) -400 unit per tablet Take 2 tablets by mouth once daily. MEDICATION, NON-DATABASE PRESTIQUE calcium carbonate-vitamin D3 1,000 mg(2,500 mg)-800 unit tab Take 1 tablet by mouth once daily. ferrous sulfate 325 mg (65 mg iron) tablet Take 1 tablet by mouth twice daily with meals. docusate sodium (COLACE) 100 mg capsule Take 1 capsule by mouth once daily. No family history on file. Social History Tobacco Use - Smoking status: Never Smoker - Smokeless tobacco: Never Used Substance Use Topics - Alcohol use: Not on file - Drug use: Not on file Review of Systems Constitutional: Negative for chills, diaphoresis, fatigue and fever. HENT: Positive for ear pain. Negative for congestion, dental problem, drooling, ear discharge, rhinorrhea, sinus pressure, sinus pain and sore throat. Eyes: Negative for photophobia, pain, discharge, redness, itching and visual disturbance. Respiratory: Negative for apnea, cough, choking and chest tightness. Cardiovascular: Negative for chest pain, palpitations and leg swelling. Gastrointestinal: Negative for abdominal pain, anorexia, change in bowel habit, nausea and vomiting. Musculoskeletal: Negative for arthralgias, joint swelling, myalgias and neck pain. Skin: Negative for color change, pallor, rash and wound. Allergic/Immunologic: Negative for environmental allergies, food allergies and immunocompromised state. Neurological: Negative for dizziness, vertigo, facial asymmetry, weakness, numbness and headaches. Hematological: Negative for adenopath (more content not included)...[facility]09-20-2021 NoteHNO ID: [id number] Author: Carolin Hope APRN.LACE BURN OUT TENDER Service: ? Author Type: Nurse Practitioner Type: Progress Notes Filed: 11/02/2020 2:37 PM Note Text: SUBJECTIVE Florentino Myers is a 25 year old male who presents with 1 day of symptoms that are stable. Symptoms include: Fever (?100.4F): No or Chills: No Cough: Yes Shortness of breath: No or Difficulty breathing: No Fatigue: Yes Muscle aches: No Headache: Yes New loss of smell or taste: No Sore throat: No Nasal congestion: No or Rhinorrhea: Yes Nausea: No or Vomiting: No Diarrhea: No High risk category assessment No high risk factors Exposures: Sick contacts? Yes Family or close contacts with confirmed/probable COVID-19 in last 14 days? 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 He has never used smokeless tobacco. BP 122/72 Pulse 90 Temp 36.4 ?C (97.5 ?F) Resp 18 Wt 99.8 kg (220 lb) SpO2 99% BMI 28.25 kg/m? PAST MEDICAL HISTORY Diagnosis Date - Allergic rhinitis - Anxiety - Selective mutism PAST SURGICAL HISTORY Procedure Laterality Date - REDUCE TESTES TORSION 2014 - REM LESIO TRUNK,ARM,LEG 1.1 -2.0CM Left 04/15/15 Exc. folliculitis suprpubic - TONSILLECTOMY HX 99 ALLERGIES Augmentin [Amoxicillin-Pot Clavulanate] and Lactose MEDICATIONS albuterol HFA (PROVENTIL HFA, VENTOLIN HFA) 90 mcg/actuation inhaler Inhale 2 puffs every 4 hours as needed for uncontrolled asthma symptoms ergocalciferol 50,000 unit capsule (VITAMIN D2, DRISDOL) Take 1 capsule by mouth one time a week. meloxicam (MOBIC) 7.5 mg tablet Take 2 tablets by mouth once daily. calcium carbonate-vitamin D3 1,000 mg(2,500 mg)-800 unit tab Take 1 tablet by mouth once daily. acetaminophen (TYLENOL) 325 mg tablet Take 650 mg by mouth every 6 hours as needed. topiramate (TOPAMAX) 200 mg tablet Take 400 mg by mouth daily at bedtime. desvenlafaxine ER (PRISTIQ) 100 mg 24 hr tablet Take 200 mg by mouth daily at bedtime. montelukast (SINGULAIR) 10 mg tablet Take 10 mg by mouth daily at bedtime. loratadine (CLARITIN) 10 mg tablet Take 10 mg by mouth once daily. desvenlafaxine ER (PRISTIQ) 100 mg 24 hr tablet Take 1 tablet by mouth at bedtime. Take with 50 mg desvenlafaxine desvenlafaxine ER (PRISTIQ) 50 mg 24 hr tablet Take 1 tablet by mouth at bedtime. Take with 100 mg desvenlafaxine topiramate (TOPAMAX) 200 mg tablet Take 3 tablets by mouth at bedtime desvenlafaxine ER (PRISTIQ) 100 mg 24 hr tablet Take 1 tablet by mouth at bedtime with 50 mg desvenlafaxine desvenlafaxine ER (PRISTIQ) 50 mg 24 hr tablet Take 1 tablet by mouth at bedtime with 100 mg desvenlafaxine topiramate (TOPAMAX) 200 mg tablet Take 3 tablets by mouth at bedtime montelukast (SINGULAIR) 10 mg tablet Take 1 tablet (10 mg) by mouth daily in the evening desvenlafaxine ER (PRISTIQ) 50 mg 24 hr tablet Take 1 tablet by mouth daily at bedtime with 100mg desvenlafaxine. desvenlafaxine ER (PRISTIQ) 100 mg 24 hr tablet Take 1 tablet by mouth daily at bedtime with 50mg desvenlafaxine. Calcium-Cholecalciferol, D3, (CALCIUM 500 + D) 500 mg(1,250mg) -400 unit per tablet Take 2 tablets by mouth once daily. MEDICATION, NON-DATABASE PRESTIQUE ferrous sulfate 325 mg (65 mg iron) tablet Take 1 tablet by mouth twice daily with meals. docusate sodium (COLACE) 100 mg capsule Take 1 capsule by mouth once daily. No family history on file. Social History Tobacco Use - Smoking status: Never Smoker - Smokeless tobacco: Never Used Substance Use Topics - Alcohol use: Not on file - Drug use: Not on file OBJECTIVE Physical Exam Vitals and nursing note reviewed. HENT: Mouth/Throat: Pharynx: Uvula midline. No oropharyngeal exudate or posterior oropharyngeal erythema. Cardiovascular: Rate and Rhythm: Normal rate and regular rhythm. Heart sounds: Normal heart sounds. Pulmonary: Effort: Pulmonary effort is normal. No respiratory distress. Breath sounds: Normal breath sounds. No wheezing or rales. Skin: General: Skin is warm and dry. Findings: No erythema or rash. Neurological: Mental Status: He is alert. ASSESSMENT/PLAN ASSESSMENT/PLAN: 1. Suspected COVID-19 virus infection - ICD9: V01.79, ICD10: Z20.822 - 2019 CORONAVIRUS 2. Exposure to COVID-19 virus - ICD9: V01.79, ICD10: Z20.822 - 2019 CORONAVIRUS - Follow-up with your PCP in 3-5 days if symptoms have not improved or sooner if symptoms worsen - Discussed red flags and need for immediate medical evaluation if any occur. - Discussed supportive care treatment with fluids, rest and analgesia. - Discussed expected course of illness Carolin Hope APRN.CNP - Meets symptom-based criteria for testing and is low risk. - COVID swab collected at time of office visit - Instructed to isolate pending test results - Discussed symptom monitoring and supportive care - Red flag symptoms requiring follow up discussed This patient encounter involved th (more content not included)...[facility] noteNo assessment information availableWAvita Health [facility] Work Phone: Hospital course Narrative No data available for this section [facility] Hospital Discharge instructions No data available for this section [facility] Progress note No data available for this section [facility] Summary Purpose Family History No Family History Records FoundNo Family History Records Found No data available for this section No data available for this section No data available for this section No data available for this section No Family History Records Found No data available for this section No data available for this section No Family History Records FoundNo Family History Records Found Advance Directives No Advanced Directives Records Found Advance Directive Response Recorded Date/ Time Advance Directives No December 8:55pm Living Will No August 23, 2020 7:17pm Power of Sequins Spooler No August 23 7:17pm Chief Complaint and Reason for Visit Chief Complaint RLQ PAIN Additional Source Comments (unrecognized sect ion and content) No Status Records FoundNo Status Records FoundNo Status Records FoundNo Status Records FoundNo Status Records Found INFORMATION SOURCE (unrecogn ized section and content) DATE CREATED AUTHOR 11/23/2018 [facility] DATE CREATED AUTHOR AUTHOR'S ORGANIZ ATION 03/09/2021 [facility] DATE CREATED AUTHOR AUTHOR'S ORGANIZ ATION 07/14/2023 [facility] ([place] DATE CREATED AUTHOR AUTHOR'S ORGANIZ ATION 08/29/2023 [facility] ([place]) DATE CREATED AUTHOR AUTHOR'S ORGANIZ ATION 12/08/2024 [facility] Goals (unrecognized section and content) Goals may be documented in a n alternate sectionGoals may be documented in an alternate section No data available for this section No data available for this sectionGoals may be documented in an alternate section No data available for this section No data available for this section No data available for this section No data available for this section No data available for this section Care Team (unrecognized sect ion and content) Care Team Personnel Name: TALISHA LEIJA MD Member Role: Primary Care Physician Address: Address: [facility] [address] [place], [place] [address] Care Team Related Persons Name: KELL CAROLIN Patient Care team informatio n (unrecognized section and content) Team Status: Active Member Role Status Dates Dr. Talisha Leija MD Family Provider Active Dr. Talisha Leija MD Primary Care Provider Active Team Status: Inactive Member Role Status Dates Dr. Talisha Leija MD Primary Care Provider Active Lissa Rahman NP, CONDITIONING COACH-C Attending Provider Active FOR RECORDS PERTAINING TO PATIENTS WHO ARE OR HAVE BEEN ENROLLED IN A CHEMICAL DEPENDENCY/SUBSTANCEABUSE PROGRAM, SOME INFORMATION MAY BE OMITTED. This clinical summary was aggregated from multiple sources. Caution should be exercised in using it in the provision of clinical care. This summary normalizes information from multiple sources, and as a consequence, information in this document may materially change the coding, format and clinical context of patient data. In addition, data may be omitted in some cases. CLINICAL DECISIONS SHOULD BE BASED ON THE PRIMARY CLINICAL RECORDS. [facility] [email or web address] [facility]. provides no warranty or guarantee of the accuracy or completeness of information in this document."
== END | disposition home or self-care (01) ==
LOC: LAB 10:23
PROVIDERS: PCP Family Medicine; Referring Provider Internal Medicine Gastroenterology; Visit Provider Internal Medicine Gastroenterology
DX: K85.90 Acute pancreatitis without necrosis or infection, unspecified (principal)
CPT/HCPCS: 36415; 80053; 82150; 83690